=== PATIENT | female | born 1950 | race Caucasian/White ===

== ENCOUNTER → 2017-10-24 12:54 | Outpatient (CLI) | payer OTHER, SELFPAY ==
--- NOTE | 2017-10-24 12:55 | DI.MG.S_ITS ---
BILATERAL DIGITAL SCREENING MAMMOGRAM 3D/2D WITH CAD: 10/24/2017 CLINICAL: Routine screening. Comparison is made to exams dated: 09/10/2016 mammogram, 07/31/2015 mammogram, and 06/30/2013 mammogram - [facility]. The tissue of both breasts is heterogeneously dense. This may lower the sensitivity of mammography. Current study was also evaluated with a Computer Aided Detection (CAD) system. No significant masses, calcifications, or other findings are seen in either breast. There has been no significant interval change. IMPRESSION: NEGATIVE There is no mammographic evidence of malignancy. A 1 year screening mammogram is recommended. This exam was interpreted at Station ID: [id number]. NOTE: For mammograms, a report in lay terms will be sent to the patient. Approximately 15% of breast malignancies will not be visualized mammographically. In the management of a palpable breast mass, a negative mammogram must not discourage biopsy of a clinically suspicious lesion. Electronically Signed By: Andrei gay/nkechi:10/24/2017 15:15:37 letter sent: Normal Exam ACR BI-RADS Category 1: Negative 3341F
== END ==
PROVIDERS: PCP Family Medicine; Visit Provider Family Medicine
DX: Z12.31 Encounter for screening mammogram for malignant neoplasm of breast (principal); M85.852 Other specified disorders of bone density and structure, left thigh; E07.9 Disorder of thyroid, unspecified; Z78.0 Asymptomatic menopausal state; Z87.891 Personal history of nicotine dependence
CPT/HCPCS: 77063; 77067; 77080

== ENCOUNTER → 2017-10-28 17:22 | Outpatient (CLI) | payer OTHER, SELFPAY ==
[2017-10-30 14:18] LABS: HSV 1 IgM Screen Negative (Negative); HSV 2 IgM Screen Negative (Negative)
[2017-10-30 15:21] LABS: HSV 2 IGG AB 9.11 index (< 0.90); HSV1IGG < 0.90 index (< 0.90)
== END ==
PROVIDERS: Visit Provider Obstetrics & Gynecology
DX: N89.8 Other specified noninflammatory disorders of vagina (principal)
CPT/HCPCS: 36415; 86694; 86695; 86696

== ENCOUNTER 2018-03-31 13:02 | Day surgery (SDC) | payer OTHER, SELFPAY ==
[2018-03-31 13:22] VITALS: BP 116/74; PULSE 86; RESP 16; TEMP 36.4; O2SAT 97; BMI 24.4
[2018-03-31] MEDS: SODIUM CHLORIDE 0.9% 1,000 ML 100 ML IV (13:46)
--- NOTE | 2018-03-31 14:46 | PM.HP.1 ---
History of Present Illness Date Patient Seen: 03/31/18 Time Patient Seen: 14:46 Chief complaint: [id number] SCREENING COLONOSCOPY Narrative: Pleasant 68-year-old lady here for screening colonoscopy. She denies any new problems or symptoms related to the function of her GI tract. She reports she needs colonoscopy as part of the Health maintenance program. Patient History Medical History Anxiety (Chronic ~1999) Bipolar 1 disorder (Chronic ~1969) Chronic back pain (Chronic ~2009) Chronic headaches (Chronic ~2013) Depression (Chronic ~1967) Gastroparesis (Chronic ~1989) Hay fever (Chronic ~1979) Hyperlipidemia (Chronic) Hyperthyroidism (Chronic) Hypothyroidism (Chronic ~1996) Lumbar spine pain (Chronic) Menopause (Chronic) Osteoarthritis (Chronic) Post traumatic stress disorder (PTSD) (Chronic ~2007) Psoriasis (Chronic) Shoulder pain (Chronic) Skin problem (Chronic ~2013) Thyroid nodule (Chronic ~1996) Chicken pox (Resolved) Measles (Resolved) Surgical History Anesthesia (Resolved) H/O shoulder surgery (Resolved ~2004) History of cystoscopy History of spinal fusion (07/07/14) History of thyroidectomy Status post delivery Status post tonsillectomy and adenoidectomy Family & Social History Family History: Reviewed 03/31/18 by Daisy Valentine MD Social History: household members spouse Tobacco & Substance use: Smoking Status Former smoker Meds Home Medications Medication Instructions Recorded Confirmed Type lamotrigine [Lamictal] 200 mg PO QDAY #0 04/16/11 History quetiapine [Seroquel XR] 50 mg PO HS #0 05/15/12 History quetiapine [Seroquel] 100 mg PO HS #0 05/15/12 History estradiol [Estrace] 0.5 gm VAGINAL SEE INSTRUCTIONS 05/06/17 Rx #60 gm celecoxib [Celebrex] 200 mg PO AMCC #0 06/18/17 History cyclobenzaprine 5 mg PO TID #0 06/18/17 History levothyroxine 137 mcg tablet 137 mcg PO QAM #90 tab 09/19/17 Rx levothyroxine 150 mcg tablet 150 mcg PO QAM #90 tab 09/19/17 Rx quetiapine 400 mg tablet 400 mg PO BEDTIME #90 tab 09/24/17 Rx nifedipine/lidocaine VAG 10/28/17 10/28/17 History valacyclovir 500 mg tablet 500 mg PO BID #10 tab 11/06/17 Rx Allergies Allergy/AdvReac Type Severity Reaction Status Date / Time lovastatin [LOVASTATIN] Allergy Unknown Unverified 09/24/17 09:00 Opioids - Morphine Analogues AdvReac Intermediate NAUSEA AND Unverified 09/24/17 09:00 [OPIOIDS - MORPHINE CONFUSION ANALOGUES] Review of Systems Review of Systems Complains of nausea with narcotics Exam Vital Signs (past 8 hours): - 03/31/18 13:22 Temperature 97.6 F Pulse Rate 86 Respiratory Rate 16 Blood Pressure 116/74 Pulse Oximetry 97 Oxygen Delivery Method Room Air Narrative Exam Narrative: Very pleasant and thin 68-year-old lady in no obvious distress HEENT: Normocephalic and atraumatic, pupils equal round reactive to light accommodation with anicteric sclera Lungs: Clear to auscultation bilaterally Heart: Regular rate and rhythm Abdomen: Soft, nontender, active bowel sounds Extremities: Warm and well perfused. Assessment & Plan Plan: Assessment/Plan Narrative: [age] year old lady here for a screening colonoscopy. She is concerned today because she reports she woke up during her last colonoscopy and it was a very traumatic experience for her. She wants to be sure that she is deeply sleep for the entire procedure. We discussed the risks and benefits of colonoscopy and the patient expressed desire to complete the procedure today.
[2018-03-31] MEDS: ONDANSETRON 4 MG/2 ML INJ IV (14:51)
--- NOTE | 2018-03-31 15:55 | PM.OP.1 ---
Operative Date/Time/Diagnoses Date of procedure: 03/31/18 Time of procedure: 15:55 Pre-op diagnosis: Screening Post-op diagnosis: same Procedure & Clinicians Procedure: Colonoscopy to the cecum Same procedure as scheduled: Yes Indications: Last colonoscopy 10 years ago Surgeon: Daisy Valentine Click Yes if Unassisted: Yes Anesthesia Type: Sedation (Versed 20 mg; fentanyl 500 mcg) Operative Notes Findings: 1. Adequate prep 2. No polyps or mass lesions 3. Profoundly tortuous and atonic colon 4. Minimal diverticulosis limited to the left side of the colon and primarily the sigmoid region. Few scattered small pocket 5. Decreased anal sphincter tone 6. Grade 1-2 internal hemorrhoids Specimen(s): none sent Procedure in detail: After obtaining informed consent, the patient was brought to the GI suite and placed in the left lateral decubitus position on the examination table. After placement of appropriate monitors, the patient was given incremental doses of Versed and Fentanyl until an appropriate level of sedation was achieved. A time out was held per SCOAP protocol. A digital rectal examination was performed and did not reveal any masses or obstructing lesions. The colonoscope was gently passed into the patient's anus and the entire colon navigated to the level of the cecum with profound difficulty due to an extremely elongated and atonic colon. Multiple changes of position as well as external pressure were required to eventually reach the cecum. Once in the cecum, the scope was withdrawn being sure to go before and beyond all mucosal folds and prominences and get an excellent examination. The findings are noted above. At the level of the rectal vault, the scope was retroflexed and the internal anal canal was examined. The scope was straightened and air aspirated from the colon. The instrument was removed from the patient's body and the procedure was concluded. The patient was allowed to awaken from sedation without difficulty and taken to the post-anesthesia care unit in good condition. Total sedation time 56 min Total colonoscopy withdrawal time 9 min 22 sec Complications: none Condition: stable Disposition: PACU Plan for aftercare: 1. Discharge to home 2. Plan for next colonoscopy in 10 years or as clinically indicated
[2018-03-31] MEDS: MIDAZOLAM 5 MG/5 ML VIAL IV (15:56)
[2018-03-31] MEDS: fentaNYL 250 MCG/5 ML INJ IV (15:56)
[2018-03-31 16:00] VITALS: BP 96/64; PULSE 80; RESP 16; TEMP 35.9; O2SAT 94
[2018-03-31 16:05] VITALS: BP 105/69; PULSE 80; RESP 16; O2SAT 94
[2018-03-31 16:10] VITALS: BP 103/71; PULSE 81; RESP 16; O2SAT 94
[2018-03-31 16:28] VITALS: BP 113/69; PULSE 65; RESP 14; TEMP 36.7; O2SAT 97
[2018-03-31 16:55] VITALS: BP 104/67; PULSE 79; RESP 16; TEMP 36.4; O2SAT 96
== END 2018-03-31 16:59 | disposition home or self-care (01) ==
PROVIDERS: PCP Family Medicine; Visit Provider Surgery
PROC: 0DJD8ZZ Inspection of Lower Intestinal Tract, Via Natural or Artificial Opening Endoscopic (ICD-10-PCS; CPT 45378; principal; 2018-03-31 14:45)
DX: Z12.11 Encounter for screening for malignant neoplasm of colon (principal); K57.30 Diverticulosis of large intestine without perforation or abscess without bleeding; K64.1 Second degree hemorrhoids
CPT/HCPCS: G0121; 99152; 99153; J2250; J2405; J3010

== ENCOUNTER → 2018-04-06 12:12 | Outpatient (CLI) | payer OTHER, SELFPAY ==
[2018-04-06 14:35] LABS: Thyroid Stimulating Hormone 0.11 uIU/mL (0.47-4.68)
== END ==
PROVIDERS: PCP Family Medicine; Visit Provider Family Medicine
DX: E03.9 Hypothyroidism, unspecified (principal)
CPT/HCPCS: 36415; 84443

== ENCOUNTER → 2018-07-03 16:01 | Outpatient (CLI) | payer OTHER, SELFPAY ==
[2018-07-03 18:39] LABS: Thyroid Stimulating Hormone 0.05 uIU/mL (0.47-4.68)
== END ==
PROVIDERS: Family Provider Psychiatry & Neurology Psychiatry; PCP Family Medicine; Visit Provider Family Medicine
DX: E03.9 Hypothyroidism, unspecified (principal)
CPT/HCPCS: 36415; 84443

== ENCOUNTER → 2018-08-20 14:02 | Outpatient (CLI) | payer OTHER, SELFPAY ==
--- NOTE | 2018-08-20 14:04 | DI.MRI.S_ITS ---
PROCEDURE: MR HIP RT WO/W CON INDICATIONS: right foot drop, right hip impingement syndrome. Right hip pain TECHNIQUE: Noncontrast coronal T1 spin echo and STIR through the bony pelvis. Coronal and axial T2 fast spin echo with fat saturation, axial T1 spin echo with fat saturation, sagittal T1 spin echo, and oblique axial T2 fast spin echo with fat saturation through the hip. Post-contrast axial, coronal, and sagittal spin echo with fat saturation through the hip. COMPARISON: [facility] [place], CR, XR PELVIS WITH LATERAL HIP RIGHT, 05/27/2017, 8:28. FINDINGS: Image quality: There is magnetic susceptibly artifact associated with patient's surgical hardware in the lower lumbar spine. Bones and joints: Bone marrow of the pelvic ring and proximal femurs demonstrate normal overall signal. No intraosseous lesions or fractures. No abnormal bone enhancement. No avascular necrosis of the femoral heads. The visualized lower lumbar spine demonstrates post surgical changes status post posterior fixation with associated magnetic susceptibility artifact. Tendons and ligaments: There is mild partial tearing of the gluteus medius tendon distally and minimal partial tearing of the distal gluteus minimus. There is associated mild peritendinous edema. No discrete bursal fluid collection. No fatty muscle atrophy. The adjacent proximal iliotibial band appears intact. The iliopsoas tendon appears intact, without adjacent bursal fluid collections or evidence for impingement syndrome. The origin of the hamstring tendon is intact at the ischial tuberosity, as well as the associated sacrotuberous ligament. The straight and reflected heads of the rectus femoris muscle origin appear intact, as well as the conjoint tendon. The ligamentum teres appears intact where visualized. Labrum and cartilage: There is mild partial linear tearing of the superior and anterosuperior labrum. Cartilage surface of the femoral head appears of normal thickness. The alpha angle of the femur is within normal limits at less than 55 degrees. Soft tissues: No suspicious soft tissue enhancement. Visualized muscles demonstrate normal bulk and internal signal. Quadratus femoris muscle demonstrates no internal edema to suggest ischiofemoral impingement. The proximal sciatic neurovascular bundle appears normal adjacent to the hamstring tendons. No free pelvic fluid. Bladder wall thickness is normal. Visualized bowel loops appear normal in caliber. Within the left hemipelvis, there is an oval thin-walled lesion measuring approximately 4.1 x 3.3 cm in coronal dimension which demonstrates T1 hyperintensity with hypointense signal on the STIR sequence. This is incompletely evaluated on the current study. IMPRESSION: 1. Partial tearing of the gluteus medius and minimus tendons as described. 2. Mild partial tearing of the superior and anterosuperior labrum. 3. Left pelvic mass lesion suggestive of an ovarian cyst or mass is incompletely evaluated on the current study. Recommend further evaluation with a pelvic ultrasound or gynecologic protocol MRI. Dictated by: Alex Jimenes M.D. on 08/20/2018 at 16:56 Approved by: Alex Jimenes M.D. on 08/20/2018 at 17:07
== END ==
PROVIDERS: PCP Family Medicine; Visit Provider Physical Medicine & Rehabilitation
DX: M25.551 Pain in right hip (principal); M25.851 Other specified joint disorders, right hip; M21.371 Foot drop, right foot; R19.00 Intra-abdominal and pelvic swelling, mass and lump, unspecified site; S73.191A Other sprain of right hip, initial encounter; M96.1 Postlaminectomy syndrome, not elsewhere classified; R26.81 Unsteadiness on feet; R29.898 Other symptoms and signs involving the musculoskeletal system
CPT/HCPCS: 73723; A9579

== ENCOUNTER → 2018-09-15 10:44 | Outpatient (CLI) | payer OTHER, SELFPAY ==
--- NOTE | 2018-09-15 10:48 | DI.US.S_ITS ---
PROCEDURE: US PELVIC COMPLETE INDICATIONS: LEFT ADNEXAL MASS ON MRI TECHNIQUE: Real-time scanning was performed of the pelvic organs, with image documentation. Additional endovaginal scanning was necessary due to incomplete visualization of the adnexal and endometrial structures by transabdominal scanning. COMPARISON: , MR, MR HIP RT WO/W CON, 08/20/2018, 14:27. , US, PELVIC COMPLETE, 11/02/2013, 9:13. FINDINGS: Transabdominal scanning: Limited scanning through the kidneys shows no hydronephrosis. Left renal cyst measuring 2.9 cm. No pathologic free abdominal or pelvic fluid. Endovaginal scanning: Uterus: Uterus is normal in size at 6.4 x 2.6 x 4.0 cm. The endometrium measures 4.3 mm in combined thickness. 4 mm anterior myometrial cyst. 1.2 cm posterior intramural fibroid. Ovaries: Ovaries not identified. IMPRESSION: 1. Ovaries not identified nor the previously visualized left adnexal cystic mass which cannot be evaluated secondary to overlying bowel gas. If indicated, limited short-term followup pelvic ultrasound could be performed targeting the left adnexa. 2. 12 mm intramural fibroid. Dictated by: Gary TURCIOS Interpreted: Ghulam Alvarado MD on 09/16/2018 at 9:57 Approved by: Ghulam Alvarado M.D. on 09/16/2018 at 11:06
== END ==
PROVIDERS: PCP Family Medicine; Visit Provider Obstetrics & Gynecology
DX: R19.00 Intra-abdominal and pelvic swelling, mass and lump, unspecified site (principal); N28.1 Cyst of kidney, acquired; D25.1 Intramural leiomyoma of uterus
CPT/HCPCS: 76830; 76856

== ENCOUNTER → 2018-10-21 09:35 | Outpatient (CLI) | payer OTHER, SELFPAY ==
[2018-10-21 10:31] LABS: Add Manual Diff / Slide Review NO; Basophils Absolute Auto 0 /uL (0-100); Basophils Percent Auto 0.9 % (0-2); Eosinophils Absolute Auto 200 /uL (0-450); Eosinophils Percent Auto 4.6 % (2-4); Hematocrit 40.5 % (36-46); Hemoglobin 13.3 g/dL (12.0-16.0); Lymphocytes Absolute Auto 1400 /uL (1100-4500); Lymphocytes Percent Auto 37.2 % (25-40); Mean Corpuscular Hemoglobin 29.5 PG (26-34); Mean Corpuscular Volume 89.4 fL (80-100); Monocytes Absolute Auto 300 /uL (0-900); Monocytes Percent Auto 8.3 % (3-14); Neutrophils Absolute Auto 1900 /uL (1500-7000); Platelet Count 280 X10^3/uL (150-400); Red Blood Cell Count 4.52 X10^6/uL (4.0-5.2); Red Cell Distribution Width 13.8 % (11.6-14.8); White Blood Cell Count 3.9 X10^3/uL (4.5-11.0)
[2018-10-21 10:43] LABS: Alanine Aminotransferase 26 IU/L (9-52); Albumin 4.5 g/dL (3.5-5.0); Albumin Globulin Ratio 1.6 (1.0-2.8); Alkaline Phosphatase 81 U/L (38-126); Aspartate Aminotransferase 32 IU/L (14-36); Bilirubin Total 0.5 mg/dL (0.2-1.3); Blood Urea Nitrogen 26 mg/dL (7-17); Calcium 9.5 mg/dL (8.4-10.2); Carbon Dioxide 28 mmol/L (22-32); Chloride 104 mmol/L (98-107); Cholesterol 259 mg/dL (140-199); Estimated Glomerular Filt Rate 55.5 mL/min (>60); Globulin 2.8 g/dL (1.7-4.1); Glucose 95 mg/dL (80-110); HDL Cholesterol 73 mg/dL (40-60); HEMOLYSIS < 15 (0-50); LDL Cholesterol Calculated 171 mg/dL (<100); Potassium 4.8 mmol/L (3.4-5.1); Sodium 140 mmol/L (137-145); Total Protein 7.3 g/dL (6.3-8.2); Triglycerides 77 mg/dL (35-150)
[2018-10-21 11:14] LABS: Thyroid Stimulating Hormone 0.19 uIU/mL (0.47-4.68)
== END ==
PROVIDERS: PCP Family Medicine; Visit Provider Family Medicine
DX: E03.9 Hypothyroidism, unspecified (principal); E78.5 Hyperlipidemia, unspecified; R89.9 Unspecified abnormal finding in specimens from other organs, systems and tissues; Z13.0 Encounter for screening for diseases of the blood and blood-forming organs and certain disorders involving the immune mechanism
CPT/HCPCS: 36415; 80053; 80061; 84443; 85025

== ENCOUNTER → 2018-11-04 12:24 | Outpatient (CLI) | payer OTHER, SELFPAY ==
[2018-11-04 13:58] LABS: Cancer Antigen 125 < 6 U/mL (0-35)
== END ==
PROVIDERS: PCP Family Medicine; Visit Provider Obstetrics & Gynecology
DX: R10.32 Left lower quadrant pain (principal)
CPT/HCPCS: 36415; 86304

== ENCOUNTER → 2019-03-09 08:09 | Outpatient (CLI) | payer OTHER, SELFPAY ==
[2019-03-09 10:44] LABS: Add Manual Diff / Slide Review NO; Basophils Absolute Auto 0 /uL (0-100); Basophils Percent Auto 0.7 % (0-2); Eosinophils Absolute Auto 200 /uL (0-450); Eosinophils Percent Auto 4.7 % (2-4); Hematocrit 40.1 % (36-46); Hemoglobin 13.4 g/dL (12.0-16.0); Lymphocytes Absolute Auto 1800 /uL (1100-4500); Lymphocytes Percent Auto 42.3 % (25-40); Mean Corpuscular HGB Conc 33.5 % (30-36); Mean Corpuscular Hemoglobin 29.6 PG (26-34); Mean Corpuscular Volume 88.4 fL (80-100); Monocytes Absolute Auto 400 /uL (0-900); Monocytes Percent Auto 9.8 % (3-14); Neutrophils Absolute Auto 1800 /uL (1500-7000); Neutrophils Percent Auto 42.5 % (50-75); Platelet Count 273 X10^3/uL (150-400); Red Blood Cell Count 4.53 X10^6/uL (4.0-5.2); Red Cell Distribution Width 13.8 % (11.6-14.8); White Blood Cell Count 4.2 X10^3/uL (4.5-11.0)
[2019-03-09 11:15] LABS: Alanine Aminotransferase 18 IU/L (9-52); Albumin 4.1 g/dL (3.5-5.0); Albumin Globulin Ratio 1.6 (1.0-2.8); Alkaline Phosphatase 83 U/L (38-126); Aspartate Aminotransferase 27 IU/L (14-36); BUN Creatinine Ratio 25.6 (6-22); Bilirubin Total 0.4 mg/dL (0.2-1.3); Blood Urea Nitrogen 23 mg/dL (7-17); Calcium 9.3 mg/dL (8.4-10.2); Carbon Dioxide 24 mmol/L (22-32); Chloride 110 mmol/L (98-107); Cholesterol 237 mg/dL (140-199); Estimated Glomerular Filt Rate > 60.0 mL/min (>60); Globulin 2.5 g/dL (1.7-4.1); Glucose 90 mg/dL (80-110); HDL Cholesterol 68 mg/dL (40-60); HEMOLYSIS < 15 (0-50); LDL Cholesterol Calculated 147 mg/dL (<100); Potassium 4.3 mmol/L (3.4-5.1); Sodium 140 mmol/L (137-145); Total Protein 6.6 g/dL (6.3-8.2); Triglycerides 112 mg/dL (35-150)
[2019-03-09 11:40] LABS: TSH w/ Reflex to FT4 0.22 uIU/mL (0.47-4.68)
[2019-03-09 12:12] LABS: Free T4, Direct Thyroxine 1.72 ng/dL (0.78-2.19)
== END ==
PROVIDERS: Family Medicine; Family Provider Nurse Practitioner; PCP Nurse Practitioner; Visit Provider Internal Medicine
DX: Z13.1 Encounter for screening for diabetes mellitus (principal); E03.9 Hypothyroidism, unspecified; E78.5 Hyperlipidemia, unspecified; Z13.6 Encounter for screening for cardiovascular disorders; Z79.899 Other long term (current) drug therapy
CPT/HCPCS: 36415; 80053; 80061; 84439; 84443; 85025

== ENCOUNTER → 2019-03-10 09:52 | Outpatient (CLI) | payer OTHER, SELFPAY ==
--- NOTE | 2019-03-10 | DI.MG.S_ITS ---
BILATERAL DIGITAL SCREENING MAMMOGRAM 3D/2D WITH CAD: 03/10/2019 CLINICAL: Routine screening. Comparison is made to exams dated: 10/24/2017 mammogram, 09/10/2016 mammogram, and 07/31/2015 mammogram - [facility]. The tissue of both breasts is heterogeneously dense. This may lower the sensitivity of mammography. Current study was also evaluated with a Computer Aided Detection (CAD) system. No significant masses, calcifications, or other findings are seen in either breast. There has been no significant interval change. IMPRESSION: NEGATIVE There is no mammographic evidence of malignancy. A 1 year screening mammogram is recommended. This exam was interpreted at Station ID: [id number]. NOTE: For mammograms, a report in lay terms will be sent to the patient. Approximately 15% of breast malignancies will not be visualized mammographically. In the management of a palpable breast mass, a negative mammogram must not discourage biopsy of a clinically suspicious lesion. Electronically Signed By: Swetha riggs/nkechi:03/10/2019 11:38:59 letter sent: Normal Exam ACR BI-RADS Category 1: Negative 3341F
== END ==
PROVIDERS: Family Provider Nurse Practitioner; PCP Nurse Practitioner; Visit Provider Nurse Practitioner
DX: Z12.31 Encounter for screening mammogram for malignant neoplasm of breast (principal); Z78.0 Asymptomatic menopausal state; E07.9 Disorder of thyroid, unspecified; Z87.891 Personal history of nicotine dependence
CPT/HCPCS: 77063; 77067; 77080; 77081

== ENCOUNTER → 2019-03-30 16:59 | Outpatient (CLI) | payer OTHER, SELFPAY ==
[2019-03-30 17:05] LABS: Bacteria Urine None Seen
[2019-03-30 18:53] LABS: Appearance Urine UA CLEAR; Bilirubin Urine UA NEGATIVE (NEGATIVE); Color Urine UA YELLOW; Glucose Urine UA NEGATIVE (Negative); Ketones Urine UA NEGATIVE (NEGATIVE); Leukocyte Esterase Urine UA NEGATIVE (NEGATIVE); Nitrite Urine UA NEGATIVE (Negative); Occult Blood Urine UA NEGATIVE (Negative); Protein Urine UA NEGATIVE (Negative); Specific Gravity Urine UA <=1.005 (1.000-1.035); Urobilinogen Urine UA 0.2 E.U./dL (0.2)
[2019-03-30 18:56] LABS: pH Urine UA 5.5 (4.5-8.0)
[2019-03-30 19:16] LABS: Culture Indicated Urine Cult Not Indicated; RBC Urine 0-1/HPF (0-5/HPF); Urine Comments Microscopic Normal; WBC Urine 0-1/HPF (0-5/HPF)
== END ==
PROVIDERS: Family Provider Nurse Practitioner; PCP Nurse Practitioner; Visit Provider Obstetrics & Gynecology
DX: R30.0 Dysuria (principal)
CPT/HCPCS: 81001

== ENCOUNTER → 2019-05-04 14:34 | Outpatient (CLI) | payer OTHER, SELFPAY ==
--- NOTE | 2019-05-04 14:35 | DI.RAD.S_ITS ---
PROCEDURE: XR CHEST 2V INDICATIONS: orthopnea TECHNIQUE: 2 views of the chest were acquired. COMPARISON: [facility], , CHEST 1 VIEW, 07/25/2014, 22:11. FINDINGS: Surgical changes and devices: Surgical clips in the lower neck at midline presumably for thyroidectomies. Lungs and pleura: Mild left basilar scars/atelectasis. Lungs are otherwise clear. No pleural effusions or pneumothorax. Mediastinum: Mediastinal contours are normal. Heart size is normal. Bones and chest wall: No suspicious bony abnormalities. Soft tissues appear unremarkable. IMPRESSION: No acute cardiopulmonary disease. Dictated by: Amol Cary M.D. on 05/04/2019 at 15:00 Approved by: Amol Cary M.D. on 05/04/2019 at 15:04
[2019-05-04 15:19] LABS: Hematocrit 38.8 % (36-46); Hemoglobin 12.9 g/dL (12.0-16.0); Mean Corpuscular HGB Conc 33.3 % (30-36); Mean Corpuscular Hemoglobin 30.3 PG (26-34); Mean Corpuscular Volume 90.9 fL (80-100); Platelet Count 284 X10^3/uL (150-400); Red Blood Cell Count 4.28 X10^6/uL (4.0-5.2); Red Cell Distribution Width 14.4 % (11.6-14.8); White Blood Cell Count 6.6 X10^3/uL (4.5-11.0)
[2019-05-04 15:44] LABS: B Type Natriuretic Peptide < 100 (<100)
== END ==
PROVIDERS: PCP Nurse Practitioner; Visit Provider Nurse Practitioner Family
DX: R06.01 Orthopnea (principal); J34.89 Other specified disorders of nose and nasal sinuses
CPT/HCPCS: 36415; 71046; 83880; 85027

== ENCOUNTER → 2019-05-14 15:49 | Outpatient (CLI) | payer OTHER, SELFPAY | PROVIDERS: PCP Nurse Practitioner; Visit Provider Internal Medicine | DX: E03.9 Hypothyroidism, unspecified (principal) | CPT/HCPCS: 36415; 84443 ==

== ENCOUNTER → 2019-07-21 09:25 | Outpatient (CLI) | payer OTHER, SELFPAY | PROVIDERS: PCP Nurse Practitioner; Visit Provider Nurse Practitioner | DX: N89.8 Other specified noninflammatory disorders of vagina (principal); N94.9 Unspecified condition associated with female genital organs and menstrual cycle | CPT/HCPCS: 87070; 87205 ==

== ENCOUNTER → 2019-11-10 11:11 | Outpatient (CLI) | payer OTHER, SELFPAY ==
[2019-11-10 13:22] LABS: TSH w/ Reflex to FT4 2.72 uIU/mL (0.47-4.68)
== END ==
PROVIDERS: PCP Nurse Practitioner; Referring Provider Internal Medicine; Visit Provider Internal Medicine
DX: E03.9 Hypothyroidism, unspecified (principal)
CPT/HCPCS: 36415; 84443

== ENCOUNTER → 2019-12-30 08:17 | Outpatient (CLI) | payer OTHER, SELFPAY ==
--- NOTE | 2019-12-30 08:19 | DI.MRI.S_ITS ---
PROCEDURE: MR FEMUR RT WO/W CON INDICATIONS: worseing pain right buttock and hamstring s/p fall TECHNIQUE: Noncontrast coronal T1 spin echo and STIR, sagittal T1 spin echo with fat saturation and STIR, axial T1 spin echo and T2 fast spin echo with fat saturation. After the administration of contrast, axial/sagittal/coronal T1 spin echo with fat saturation through the right thigh.. COMPARISON: None. FINDINGS: Image quality: Excellent. Bones: There is no marrow edema. No fracture or dislocation. Mild to moderate right hip joint osteoarthritic changes are seen. No evidence of avascular necrosis of femoral head.. The overlying cortex appears intact. No abnormal intraosseous enhancement. Soft tissues: There is full-thickness rupture involving origin of semi member no cysts tendon at its insertion on ischial tuberosity with minimal distal retraction of torn tendon fibers and extensive surrounding soft tissue edema and fluid. Mild edema involving proximal semimembranosus muscle near musculotendinous junction is also seen suggestive of low-grade partial-thickness tear. Full-thickness rupture involving common tendon origin of long head of biceps femora stent in and semitendinosis tendon is seen with approximately 2 cm distal retraction of torn tendon fibers and extensive edema and fluid involving proximal tendons and muscles new musculotendinous junction. Edema and fluid is seen surrounding semitendinosis muscle to posterior aspect of right knee joint. No soft tissue masses are visualized. Rest of the scanned muscles demonstrate normal overall bulk and internal signal. Subcutaneous tissues appear normal as well. No abnormal soft tissue enhancement. IMPRESSION: 1. Full-thickness rupture involving and strain tendon origin at the ischial tuberosity with distal retraction of torn tendon fibers and with surrounding fluid. There is also suggestion of partial-thickness tear involving proximal portion of answering muscles near musculotendinous junction. No soft tissue mass. No other muscle or tendon signal abnormality. 2. No fracture or dislocation. Right hip joint osteoarthritis. No evidence of avascular necrosis. No abnormal intraosseous enhancement. Dictated by: Ghulam Alvarado M.D. on 12/30/2019 at 17:37 Approved by: Ghulam Alvarado M.D. on 12/30/2019 at 17:55
--- NOTE | 2019-12-30 08:19 | DI.MRI.S_ITS ---
PROCEDURE: MR HIP RT WO/W CON INDICATIONS: worseing pain right buttock and hamstring s/p fall TECHNIQUE: Noncontrast coronal T1 spin echo and STIR through the bony pelvis. Coronal and axial T2 fast spin echo with fat saturation, axial T1 spin echo with fat saturation, sagittal T1 spin echo, and oblique axial T2 fast spin echo with fat saturation through the hip. Post-contrast axial, coronal, and sagittal spin echo with fat saturation through the hip. COMPARISON: [facility], MR, MR HIP RT WO/W CON, 08/20/2018, 14:27. FINDINGS: Image quality: Excellent. Bones and joints: No suspicious osseous enhancement. [id number] bilateral hip joint osteoarthritic changes are seen with superior joint space narrowing and subchondral sclerosis. No marrow edema. No intraosseous lesions or fractures. No avascular necrosis of the femoral heads. The visualized lower lumbar spine appears normally aligned. Tendons and ligaments: There is full-thickness rupture involving origins of the hamstring tendons at their insertions on ischial tuberosity with distally retracted tendon fibers and extensive surrounding soft tissue edema and swelling. The gluteus medius and minimus tendons appear intact, without associated muscle atrophy. The nearby proximal iliotibial band also appears intact. The iliopsoas tendon appears intact, without adjacent bursal fluid collections or evidence for impingement syndrome. The straight and reflected heads of the rectus femoris muscle origin appear intact, as well as the conjoint tendon. The ligamentum teres appears intact where visualized. Labrum and cartilage: The acetabular labrum appears intact in the absence of intra-articular contrast. Cartilage surface of the femoral head appears of normal thickness. The alpha angle of the femur is within normal limits at less than 55 degrees. Soft tissues: No suspicious soft tissue enhancement. Visualized muscles demonstrate normal bulk and internal signal. Quadratus femoris muscle demonstrates no internal edema to suggest ischiofemoral impingement. The proximal sciatic neurovascular bundle appears normal adjacent to the hamstring tendons. No free pelvic fluid. Bladder wall thickness is normal. Genitourinary structures and bowel loops appear normal where visualized. IMPRESSION: 1. Full-thickness rupture involving common origin of the hamstring tendons at their insertion on ischial tuberosity with distal retraction of the torn tendon fibers and surrounding soft tissue edema and swelling. Please refer to MRI of the right thigh for additional evaluation of the hamstring tendons and muscles. 2. No pelvic or hip fracture. No marrow edema. No abnormal intraosseous enhancement. No evidence of avascular necrosis of femoral head. Mild to moderate bilateral hip joint osteoarthritis. 3. No abnormal soft tissue enhancement. No soft tissue mass or fluid collection. No other muscle or tendon signal abnormality. Dictated by: Ghulam Alvarado M.D. on 12/30/2019 at 17:21 Approved by: Ghulam Alvarado M.D. on 12/30/2019 at 17:36
== END ==
PROVIDERS: PCP Nurse Practitioner; Referring Provider Nurse Practitioner; Visit Provider Nurse Practitioner
DX: S76.811A Strain of other specified muscles, fascia and tendons at thigh level, right thigh, initial encounter (principal); M79.18 Myalgia, other site; M25.661 Stiffness of right knee, not elsewhere classified; M16.11 Unilateral primary osteoarthritis, right hip; W18.30XA Fall on same level, unspecified, initial encounter
CPT/HCPCS: 73720; 73723; A9579

== ENCOUNTER 2019-12-31 17:06 | Emergency (ER) | payer OTHER, SELFPAY ==
[2019-12-31 17:33] VITALS: BP 133/86; PULSE 92; RESP 16; TEMP 36.8; O2SAT 98; BMI 25.3
== END 2019-12-31 18:21 | disposition left against medical advice (07) ==
PROVIDERS: Emergency Provider Emergency Medicine; PCP Nurse Practitioner
CPT/HCPCS: 99281

== ENCOUNTER → 2020-02-09 12:06 | Outpatient (CLI) | payer OTHER, SELFPAY ==
[2020-02-09 13:20] LABS: TSH w/ Reflex to FT4 1.38 uIU/mL (0.47-4.68)
== END ==
PROVIDERS: PCP Nurse Practitioner; Referring Provider Internal Medicine; Visit Provider Internal Medicine
DX: E03.9 Hypothyroidism, unspecified (principal)
CPT/HCPCS: 36415; 84443

== ENCOUNTER → 2020-04-18 11:35 | Outpatient (CLI) | payer OTHER, SELFPAY ==
--- NOTE | 2020-04-18 11:36 | DI.MG.S_ITS ---
BILATERAL DIGITAL SCREENING MAMMOGRAM 3D/2D WITH CAD: 04/18/2020 CLINICAL: Routine screening. Comparison is made to exams dated: 03/10/2019 mammogram, 10/24/2017 mammogram, and 09/10/2016 mammogram - [facility]. The tissue of both breasts is heterogeneously dense. This may lower the sensitivity of mammography. Current study was also evaluated with a Computer Aided Detection (CAD) system. No significant masses, calcifications, or other findings are seen in either breast. There has been no significant interval change. IMPRESSION: NEGATIVE There is no mammographic evidence of malignancy. A 1 year screening mammogram is recommended. This exam was interpreted at Station ID: [id number]. NOTE: For mammograms, a report in lay terms will be sent to the patient. Approximately 15% of breast malignancies will not be visualized mammographically. In the management of a palpable breast mass, a negative mammogram must not discourage biopsy of a clinically suspicious lesion. Electronically Signed By: Washington Hernandez acr/penrad:04/18/2020 12:49:17 letter sent: Normal Exam ACR BI-RADS Category 1: Negative 3341F
== END ==
PROVIDERS: PCP Nurse Practitioner; Referring Provider Nurse Practitioner; Visit Provider Nurse Practitioner
DX: Z12.31 Encounter for screening mammogram for malignant neoplasm of breast (principal)
CPT/HCPCS: 77063; 77067

== ENCOUNTER → 2020-04-24 08:30 | Outpatient (CLI) | payer OTHER, SELFPAY ==
[2020-04-24 10:35] LABS: Thyroid Stimulating Hormone 4.22 uIU/mL (0.47-4.68)
== END ==
PROVIDERS: PCP Nurse Practitioner; Referring Provider Nurse Practitioner; Visit Provider Nurse Practitioner
DX: E03.9 Hypothyroidism, unspecified (principal); F31.9 Bipolar disorder, unspecified; F41.0 Panic disorder [episodic paroxysmal anxiety]; Z79.899 Other long term (current) drug therapy
CPT/HCPCS: 36415; 84443

== ENCOUNTER → 2020-08-03 14:22 | Outpatient (CLI) | payer OTHER, SELFPAY ==
[2020-08-03 14:52] LABS: Add Manual Diff / Slide Review NO; Basophils Absolute Auto 100 /uL (0-100); Basophils Percent Auto 1.1 % (0-2); Eosinophils Absolute Auto 200 /uL (0-450); Eosinophils Percent Auto 3.7 % (2-4); Hematocrit 39.1 % (36-46); Hemoglobin 12.8 g/dL (12.0-16.0); Lymphocytes Absolute Auto 1800 /uL (1100-4500); Lymphocytes Percent Auto 35.8 % (25-40); Mean Corpuscular HGB Conc 32.7 % (30-36); Mean Corpuscular Hemoglobin 30.1 PG (26-34); Monocytes Absolute Auto 400 /uL (0-900); Monocytes Percent Auto 8.4 % (3-14); Neutrophils Absolute Auto 2600 /uL (1500-7000); Platelet Count 295 X10^3/uL (150-400); Red Blood Cell Count 4.25 X10^6/uL (4.0-5.2); Red Cell Distribution Width 12.6 % (11.6-14.8); White Blood Cell Count 5.1 X10^3/uL (4.5-11.0)
[2020-08-03 15:34] LABS: Alanine Aminotransferase 19 IU/L (<35); Albumin 4.5 g/dL (3.5-5.0); Albumin Globulin Ratio 1.6 (1.0-2.8); Alkaline Phosphatase 92 U/L (38-126); Aspartate Aminotransferase 29 IU/L (14-36); Bilirubin Total 0.1 mg/dL (0.2-1.3); Blood Urea Nitrogen 22 mg/dL (7-17); Calcium 9.4 mg/dL (8.4-10.2); Carbon Dioxide 25 mmol/L (22-32); Chloride 106 mmol/L (98-107); Estimated Glomerular Filt Rate > 60.0 mL/min (>60); Globulin 2.9 g/dL (1.7-4.1); Glucose 95 mg/dL (80-110); HEMOLYSIS < 15 (0-50); Potassium 4.1 mmol/L (3.4-5.1); Sodium 140 mmol/L (137-145); Total Protein 7.4 g/dL (6.3-8.2)
== END ==
PROVIDERS: Orthopaedic Surgery; PCP Nurse Practitioner; Referring Provider Nurse Practitioner; Visit Provider Nurse Practitioner
DX: Z01.818 Encounter for other preprocedural examination (principal)
CPT/HCPCS: 36415; 80053; 85025; 93005; 93010

== ENCOUNTER → 2020-08-04 11:27 | Outpatient (CLI) | payer OTHER, SELFPAY ==
--- NOTE | 2020-08-04 11:28 | DI.MRI.S_ITS ---
PROCEDURE: MR LUMBAR SPINE WO/W CON INDICATIONS: LOW BACK PAIN, history of spinal surgery TECHNIQUE: Noncontrast sagittal T1 spin echo and T2 fast spin echo, sagittal STIR, axial T1 and T2 fast spin echo through the lumbar spine. In cases with scoliosis, additional coronal T2 fast spin echo may be performed. After the administration of contrast, sagittal and axial T1 spin echo with fat saturation through the lumbar spine. COMPARISON: [facility], , L-SPINE W&WO CONTRAST, 01/02/2017, 7:27. FINDINGS: Image quality: Susceptibility artifact from fusion hardware is again noted. There is good anatomic alignment, unchanged. Alignment and curvature: There is posterior fusion from L3 through L5. Appearance is unchanged compared to prior exam. Marrow: Marrow is of normal overall signal. No acute vertebral body compression fractures. No suspicious marrow enhancement. Spinal cord: Conus medullaris terminates at the L1 level. Visualized spinal cord demonstrates normal signal, without suspicious enhancement. Paraspinous soft tissues: No paravertebral masses or abnormal enhancement. Multiple bilateral renal cysts are again noted. Discs: Moderate to severe multilevel disc desiccation is present. L1-L2: Minimal disc bulge without spinal stenosis or foraminal narrowing. Facet and ligamentum flavum hypertrophy as well as minimal epidural lipomatosis is present, unchanged compared to prior exam. L2-L3: Mild disc bulge with minimal effacement of the anterior thecal sac. No foraminal narrowing. Facet and ligamentum flavum hypertrophy are present with minimal epidural lipomatosis. No interval change. L3-L4: Postsurgical changes are present. No spinal stenosis. Foramina are partially obscured. However, no gross foraminal narrowing. Overall appearance appears stable. L4-L5: Postsurgical changes are present. No spinal stenosis. Foramina are partially obscured. However there is felt to be mild bilateral foraminal narrowing, relatively unchanged. L5-S1: Mild disc bulge without spinal stenosis. Mild bilateral foraminal narrowing, unchanged. Posterior disc focus of increased intensity consistent with annular fissure, remains present although slightly less prominent. IMPRESSION: 1. Postsurgical and degenerative changes stable compared to prior exam. 2. No spinal stenosis. 3. Multilevel overall mild foraminal narrowing most notable at L5-S1. Dictated by: Chitra Tsang M.D. on 08/04/2020 at 13:50 Approved by: Chitra Tsang M.D. on 08/04/2020 at 13:57
== END ==
PROVIDERS: PCP Nurse Practitioner; Referring Provider Nurse Practitioner; Visit Provider Nurse Practitioner
DX: M54.5 Low back pain (principal); Z98.890 Other specified postprocedural states; Z98.1 Arthrodesis status
CPT/HCPCS: 72158

== ENCOUNTER 2020-09-19 15:41 | Emergency (ER) | payer OTHER, SELFPAY ==
[2020-09-19] VITALS (7 sets, daily range): BP systolic 127–136; BP diastolic 81–94; PULSE 80–102; RESP 14; TEMP 36.8; O2SAT 94–98; BMI 24.0
--- NOTE | 2020-09-19 16:03 | ED_ITS ---
HPI - Nausea/Vomiting/Diarrhea General Chief complaint: Nausea/Vomiting/Diarrhea Stated complaint: NOT GONE TO THE BATHOOM FOR 15 DAYS Time Seen by Provider: 09/19/20 15:42 Source: patient Mode of arrival: Ambulatory Limitations: no limitations History of Present Illness HPI Narrative: Patient is a 70-year-old female who approximately 1 month ago underwent a right total knee arthroplasty. She states that she is here because she feels like she has not had a bowel movement in approximately 15 days. She states she has been doing [id number] laxatives without any improvement. Has an underlying nausea but no vomiting. Does not feel like her abdomen is distended but she does feel bloated. She states that she is also not passing flatus. Has never had a bowel obstruction before. No prior abdominal surg eries. She states she does not feel like there is any stool in her rectum. Related Data Home Medications Medication Instructions Recorded Confirmed lamotrigine [Lamictal] 200 mg PO QDAY #0 04/16/11 08/11/20 lorazepam 1 mg tablet 0.5 mg PO BEDTIME PRN 10/28/18 08/11/20 zolpidem 10 mg tablet See Rx Instructions PO BEDTIME PRN 12/08/18 08/11/20 tab melatonin 3 mg capsule 1.5 mg PO BEDTIME PRN cap 03/17/19 08/11/20 quetiapine 100 mg tablet 100 mg PO BEDTIME 03/17/19 08/11/20 quetiapine 400 mg tablet,extended 400 mg PO BEDTIME 03/17/19 08/11/20 release 24 hr levothyroxine 137 mcg tablet 137 mcg PO QAM tab 08/11/20 08/11/20 levothyroxine 150 mcg tablet 150 mcg PO DAILY 08/11/20 08/11/20 Previous Rx's Medication Instructions Recorded triamcinolone acetonide 0.05 % 1 applictn TOP TID PRN #430 gram 03/17/19 topical ointment triamcinolone acetonide 0.1 % 1 applictn TOP BID PRN #15 gram 07/21/19 topical ointment clobetasol 0.05 % topical ointment 1 applictn TOP BID 7 Days #15 gram 07/29/19 valacyclovir 1 gram tablet 1,000 mg PO DAILY #90 tab 11/09/19 estradiol See Rx Instructions .ROUTE 04/25/20 .COMPLEX #42.5 gram quetiapine 50 mg tablet,extended 50 mg PO DAILY #1 tab 08/11/20 release 24 hr Allergies Allergy/AdvReac Type Severity Reaction Status Date / Time lovastatin [LOVASTATIN] Allergy Unknown Verified 09/19/20 15:49 Opioids - Morphine Analogues AdvReac Intermediate NAUSEA AND Verified 09/19/20 15:49 [OPIOIDS - MORPHINE CONFUSION ANALOGUES] Review of Systems Constitutional Constitutional: Denies fever(s) and Denies headache(s) ENT Ears, Nose, Mouth, and Throat: Denies headache(s) Cardiovascular Cardiovascular: Denies chest pain and Denies dyspnea Respiratory Respiratory: Denies dyspnea Gastrointestinal Gastrointestinal: Denies abdominal pain, Reports bloating, Reports constipation, Reports nausea and Denies vomiting Genitourinary Genitourinary: Denies dysuria Genitourinary: Denies dysuria Musculoskeletal Musculoskeletal: Denies myalgias Integumentary/Breasts Skin/Breast: Denies rash Neurologic Neurologic: Denies behavioral changes and Denies headache(s) Psychiatric Psychiatric: Denies behavioral changes Hematologic/Lymphatic On Anticoagulants: No Allergic/Immunologic Allergic/Immunologic: Denies urticaria Patient History Medical History Anxiety (~1999) Bipolar 1 disorder (~1969) Bladder spasms Chicken pox Chronic back pain (~2009) Chronic headaches (~2013) Chronic pain Contact dermatitis Decreased range of motion of right lower extremity Depression (~1967) Fall from ground level Femoral acetabular impingement Gait instability Gastroparesis (~1989) Genital herpes Genital herpes in women Hay fever (~1979) 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) Hyperlipidemia Hyperthyroidism Hypothyroidism (~1996) Hypothyroidism (acquired) Itchy skin of anus and genitals Laceration of scalp Lumbar post-laminectomy syndrome Lumbar spine pain Measles Menopause Neck pain (02/26/16) Osteoarthritis Osteopenia Piriformis syndrome of right side Post traumatic stress disorder (PTSD) (~2007) Psoriasis Right buttock pain Right foot drop Right hamstring injury Right hip impingement syndrome Shoulder pain Skin problem (~2013) Thyroid nodule (~1996) Surgical History Anesthesia H/O shoulder surgery (~2004) History of cystoscopy History of spinal fusion (07/07/14) History of thyroidectomy Personal history of prior ablation treatment Status post delivery Status post lumbar spinal fusion Status post tonsillectomy and adenoidectomy Family History Grandmother Bipolar disorder Mother Bipolar disorder Alzheimer's dementia Social History marital status: household members: spouse pets and animals: Yes education level: college occupational status: other joshua/advent: Other travel history: other leisure activities: other other: Walking, hiking, Pilates, Esther, writing seatbelt use: always water heater temp set < 120 deg: Yes working smoke detector in home: Yes fire extinguisher in home: Yes carbon monox detector in home: Yes firearms in home: No Smoking Status: Former smoker alcohol intake: current substance use type: does not use well-balanced diet: daily or most days caffeine: Yes eating out: other frequency: daily duration: 45-60 minutes/day Smoking Status: Former smoker alcohol intake frequency: holidays/special occasions only Substance Use Type: does not use Exam Initial Vital Signs Initial Vital Signs: Vital Signs Temperature 98.2 F 09/19/20 15:45 Pulse Rate 92 H 09/19/20 15:45 Respiratory Rate 14 09/19/20 15:45 Blood Pressure 136/94 H 09/19/20 15:45 Pulse Oximetry 94 09/19/20 15:45 Const General: cooperative and comfortable Limitations: mental status not altered HENMT Head: normal to inspection and normocephalic Resp Effort & Inspection: normal respiratory effort Auscultation: clear to auscultation bilaterally Cardio Rate: regular rate Rhythm: regular rhythm GI Inspection: distended Palpation: soft, No firm and No tender Auscultation: abnormal bowel sounds (Decreased) Skin Lesions: no lesions Rashes: no rashes Neuro General: patient alert, patient awake and patient oriented x3 Cognition: normal cognition Speech: speech normal Extrem General: normal to inspection and capillary refill normal Psych Appearance: grossly normal and well kempt Course Orders Ordered: ED Orders 09/19/20 16:02 CT abdomen pelvis w con Stat 09/19/20 16:15 Complete Blood Count AUTO DIFF Stat Comprehensive Metabolic Panel Stat Lactate (Lactic Acid) Stat Lipase Stat Vital Signs Vital signs: Vital Signs - 8 hr 09/19/20 15:45 09/19/20 15:47 09/19/20 16:00 Temperature 98.2 F Pulse Rate 92 H 102 H 89 Respiratory Rate 14 Blood Pressure 136/94 H 136/94 H Pulse Oximetry 94 95 96 09/19/20 16:30 09/19/20 17:00 09/19/20 17:30 Temperature Pulse Rate 80 80 85 Respiratory Rate Blood Pressure Pulse Oximetry 95 98 98 09/19/20 17:56 Temperature Pulse Rate Respiratory Rate Blood Pressure 127/81 Pulse Oximetry MDM - Nausea/Vomiting/Diarrhea Lab Data Attestation: I reviewed the patient's lab results. Result diagrams: 09/19/20 16:15 09/19/20 16:15 Labs: Lab Results 09/19/20 09/19/20 09/19/20 Range/Units 16:15 16:15 16:15 WBC 4.5 (4.5-11.0) X10^3/uL RBC 4.07 (4.0-5.2) X10^6/uL Hgb 12.0 (12.0-16.0) g/dL Hct 36.7 (36-46) % MCV 90.2 (80-100) fL MCH 29.6 (26-34) PG MCHC 32.8 (30-36) % RDW 14.2 (11.6-14.8) % Plt Count 319 (150-400) X10^3/uL Neut % (Auto) 52.1 (50-75) % Lymph % (Auto) 36.8 (25-40) % [place] % (Auto) 7.3 (3-14) % Eos % (Auto) 2.9 (2-4) % Baso % (Auto) 0.9 (0-2) % Neut # (Auto) 2400 (9119-6101) /uL Lymph # (Auto) 1700 (5261-2016) /uL [place] # (Auto) 300 (0-900) /uL Eos # (Auto) 100 (0-450) /uL Baso # (Auto) 0 (0-100) /uL Sodium 140 (137-145) mmol/L Potassium 3.9 (3.4-5.1) mmol/L Chloride 108 H (98-107) mmol/L Carbon Dioxide 23 (22-32) mmol/L BUN 19 H (7-17) mg/dL Creatinine 0.99 (0.52-1.04) mg/dL Estimated GFR 55.8 L (>60) mL/min BUN/Creatinine Ratio 19.2 (6-22) Glucose 104 (80-110) mg/dL Lactate 0.8 (0.7-2.1) mmol/L Calcium 9.5 (8.4-10.2) mg/dL Total Bilirubin 0.3 (0.2-1.3) mg/dL AST 25 (14-36) IU/L ALT 23 (<35) IU/L Alkaline Phosphatase 100 (38-126) U/L Total Protein 7.0 (6.3-8.2) g/dL Albumin 4.2 (3.5-5.0) g/dL Globulin 2.8 (1.7-4.1) g/dL Albumin/Globulin Ratio 1.5 (1.0-2.8) Lipase 207 (23-300) U/L Imaging Data CT scan - abdomen/pelvis: Radiologist's Impression: [address] [id number] Scan ReportSigned Patient: Sugar Parra KMR#: [id number]: 1950cct:[id number]/Sex: 70 / FDate of Service: 09/19/20Loc: EDAccession Number: [id number] Procedure: CT abdomen pelvis w con Ordering Provider: Anshu Conrad D.O. PROCEDURE: CT ABDOMEN PELVIS W CON INDICATIONS: Generalized abdominal pain, no bowel movement TECHNIQUE: After the administration of intravenous contrast, 5 mm thick sections acquired from the diaphragm to the symphysis. 5 mm coronal and sagittal reformats were acquired. For radiation dose reduction, the following was used: automated exposure control, adjustment of mA and/or kV according to patient size. COMPARISON: None. FINDINGS: Image quality: Excellent. ABDOMEN: Lung bases: Small infiltrate/atelectasis in posterior aspect of right lung base is seen. Left lung base is clear. Heart size is normal. Solid organs: Liver is normal in size . Mild hepatic steatosis is seen. Tiny 6 millimeter hypodensity involving posterior segment of inferior right hepatic lob e is seen and may represent hepatic cyst. Gallbladder is within normal limits. Biliary system is non dilated. Pancreas enhances normally. Spleen is normal in size and enhancement. No adrenal nodules. Kidneys demonstrate normal size and enhancement, without hydronephrosis. Multiple bilateral renal cysts are seen measures up to 2.3 x 1.6 cm in size in midpole of left kidney posteriorly. Peritoneum and bowel: Bowel loops demonstrate normal wall thickness and caliber. No free fluid or air. Significant fecal stasis throughout the colon is seen extending to the rectum. Appendix is visualized in right lower quadrant and is within normal limits. No abscess collection. Nodes and vessels: No retroperitoneal or mesenteric adenopathy by size criteria. Aorta and inferior vena cava are normal in size. Miscellaneous: No ventral hernias. PELVIS: Genitourinary: Bladder wall thickness is normal. Miscellaneous: No inguinal hernias or adenopathy. Bones: No suspicious bony lesions. Postfusion changes are noted in lower lumbar spine at L3 through L5 levels. No vertebral body compression fractures. IMPRESSION: 1. Moderate constipation. No abnormal bowel wall thickening. Normal appendix. No free fluid or free air. 2. Mild hepatic steatosis. 6 millimeter hypodensity in posterior segment of right hepatic lobe and may represent hepatic cyst. 3. Bilateral renal cysts. No renal stone or hydronephrosis. 4. Post fusion changes in lower lumbar spine as above. Dictated by: Ghulam Alvarado M.D. on 09/19/2020 at 17:00 Approved by: Ghulam Alvarado M.D. on 09/19/2020 at 17:03 [facility] Narrative Medical decision making narrative: Patient does have a benign abdominal exam. Labs are unremarkable. CT scan does not show any signs of obstruction. Discussed this with her. She is off of all of the opioid medications. She has nausea medication at home. No indication for surgical consultation. No indication for further radiologic studies today. We did discuss things she can do at home to help with the constipation to include laxatives, increasing her fluid intake and when the time comes enemas. We discussed the expected course over the next several days and what to return to the emergency department for. She expressed understanding and agreement. Discharge Plan Departure Patient Disposition: Home Clinical Impression: Constipation Instructions: DI for Constipation Activity Restrictions/Additional Instructions: I do recommend that you increase your fluid intake. Also recommend that you increase your fiber intake. Recommend a bland diet. Increase the amount of times that your taking the laxatives like we discussed. Continue all of your postoperative instructions given to you by the orthopedic surgeon. Return to the emergency department for fevers, vomiting, abdominal distention, or any other new or worsening symptoms Prescriptions: No Action lamotrigine [Lamictal] 200 MG tablet 200 mg PO QDAY Qty: 0 RF: 0 zolpidem [Ambien] 10 mg tablet See Rx Instructions PO BEDTIME PRN (Reason: insomnia) RF: 0 clobetasol 0.05 % ointment 1 applictn TOP BID 7 Days Qty: 15 RF: 2 valacyclovir [Valtrex] 1 gram tablet 1,000 mg PO DAILY Qty: 90 RF: 3 estradiol 0.01 % (0.1 mg/gram) cream See Rx Instructions .ROUTE .COMPLEX Qty: 42.5 RF: 1 lorazepam 1 mg tablet 0.5 mg PO BEDTIME PRNRF: 0 quetiapine [Seroquel XR] 400 mg tablet extended release 24 hr 400 mg PO BEDTIME RF: 0 quetiapine [Seroquel] 100 mg tablet 100 mg PO BEDTIME RF: 0 melatonin 3 mg capsule 1.5 mg PO BEDTIME PRNRF: 0 triamcinolone acetonide 0.05 % ointment 1 applictn TOP TID PRN (Reason: perineal rash) Qty: 430 RF: 3 triamcinolone acetonide 0.1 % ointment 1 applictn TOP BID PRN (Reason: itching/burning) Qty: 15 RF: 2 levothyroxine 137 mcg tablet 137 mcg PO QAM RF: 0 levothyroxine 150 mcg tablet 150 mcg PO DAILY RF: 0 quetiapine [Seroquel XR] 50 mg tablet extended release 24 hr 50 mg PO DAILY Qty: 1 RF: 0 Referrals: Negrita Page ARNP [Primary Care Provider] -
[2020-09-19 16:24] LABS: Add Manual Diff / Slide Review NO; Basophils Absolute Auto 0 /uL (0-100); Basophils Percent Auto 0.9 % (0-2); Eosinophils Absolute Auto 100 /uL (0-450); Eosinophils Percent Auto 2.9 % (2-4); Hematocrit 36.7 % (36-46); Lymphocytes Absolute Auto 1700 /uL (1100-4500); Lymphocytes Percent Auto 36.8 % (25-40); Mean Corpuscular HGB Conc 32.8 % (30-36); Mean Corpuscular Hemoglobin 29.6 PG (26-34); Mean Corpuscular Volume 90.2 fL (80-100); Monocytes Absolute Auto 300 /uL (0-900); Monocytes Percent Auto 7.3 % (3-14); Neutrophils Absolute Auto 2400 /uL (1500-7000); Neutrophils Percent Auto 52.1 % (50-75); Platelet Count 319 X10^3/uL (150-400); Red Blood Cell Count 4.07 X10^6/uL (4.0-5.2); Red Cell Distribution Width 14.2 % (11.6-14.8); White Blood Cell Count 4.5 X10^3/uL (4.5-11.0)
[2020-09-19 16:40] LABS: Alanine Aminotransferase 23 IU/L (<35); Albumin 4.2 g/dL (3.5-5.0); Albumin Globulin Ratio 1.5 (1.0-2.8); Alkaline Phosphatase 100 U/L (38-126); Aspartate Aminotransferase 25 IU/L (14-36); BUN Creatinine Ratio 19.2 (6-22); Bilirubin Total 0.3 mg/dL (0.2-1.3); Blood Urea Nitrogen 19 mg/dL (7-17); Calcium 9.5 mg/dL (8.4-10.2); Carbon Dioxide 23 mmol/L (22-32); Chloride 108 mmol/L (98-107); Estimated Glomerular Filt Rate 55.8 mL/min (>60); Globulin 2.8 g/dL (1.7-4.1); Glucose 104 mg/dL (80-110); HEMOLYSIS < 15 (0-50); Lipase 207 U/L (23-300); Potassium 3.9 mmol/L (3.4-5.1); Sodium 140 mmol/L (137-145)
[2020-09-19 16:41] LABS: Lactate (Lactic Acid) 0.8 mmol/L (0.7-2.1)
== END 2020-09-19 18:12 | disposition home or self-care (01) ==
PROVIDERS: Emergency Provider Emergency Medicine; PCP Nurse Practitioner
DX: K59.00 Constipation, unspecified (principal); R10.84 Generalized abdominal pain; R11.0 Nausea
CPT/HCPCS: 36415; 74177; 80053; 83605; 83690; 85025; 99284

== ENCOUNTER → 2020-09-25 10:12 | Outpatient (CLI) | payer OTHER, SELFPAY ==
--- NOTE | 2020-09-25 10:14 | DI.RAD.S_ITS ---
PROCEDURE: XR ACUTE ABDOMEN SERIES INDICATIONS: abdominal pain TECHNIQUE: One view chest and two views of the abdomen were acquired. COMPARISON: [facility], CT, CT ABDOMEN PELVIS W CON, 09/19/2020, 16:53. FINDINGS: Surgical changes and devices: Lumbosacral spine fixation devices, previously present. Chest: Lungs are clear. Heart size is normal. No pleural effusions. No pneumoperitoneum. Abdomen: Bowel gas pattern is normal except for mild colonic obstipation on the right and the left side port. No suspicious calcifications. Visualized solid organ contours appear normal. Bones: No suspicious bony lesions. IMPRESSION: Nonspecific bowel gas pattern. No sign of intestinal obstruction or perforation. Mild colonic obstipation on the right and the left. Dictated by: Imer Fairbanks M.D. on 09/25/2020 at 10:43 Approved by: Imer Fairbanks M.D. on 09/25/2020 at 10:44
[2020-09-25 11:53] LABS: Alanine Aminotransferase 34 IU/L (<35); Albumin 4.4 g/dL (3.5-5.0); Albumin Globulin Ratio 1.4 (1.0-2.8); Alkaline Phosphatase 110 U/L (38-126); Aspartate Aminotransferase 34 IU/L (14-36); BUN Creatinine Ratio 14.3 (6-22); Bilirubin Total 0.2 mg/dL (0.2-1.3); Blood Urea Nitrogen 13 mg/dL (7-17); Calcium 9.5 mg/dL (8.4-10.2); Carbon Dioxide 24 mmol/L (22-32); Chloride 108 mmol/L (98-107); Estimated Glomerular Filt Rate > 60.0 mL/min (>60); Globulin 3.1 g/dL (1.7-4.1); Glucose 103 mg/dL (80-110); HEMOLYSIS < 15 (0-50); Potassium 4.2 mmol/L (3.4-5.1); Sodium 142 mmol/L (137-145); Total Protein 7.5 g/dL (6.3-8.2)
== END ==
PROVIDERS: PCP Nurse Practitioner; Referring Provider Registered Nurse; Visit Provider Registered Nurse
DX: R10.9 Unspecified abdominal pain (principal); K59.00 Constipation, unspecified
CPT/HCPCS: 36415; 74022; 80053

== ENCOUNTER → 2021-03-29 09:16 | Outpatient (CLI) | payer OTHER, SELFPAY ==
[2021-03-29 10:11] LABS: Add Manual Diff / Slide Review NO; Basophils Absolute Auto 0 /uL (0-100); Basophils Percent Auto 0.9 % (0-2); Eosinophils Absolute Auto 200 /uL (0-450); Eosinophils Percent Auto 5.1 % (2-4); Hematocrit 38.1 % (36-46); Hemoglobin 12.6 g/dL (12.0-16.0); Lymphocytes Absolute Auto 1200 /uL (1100-4500); Lymphocytes Percent Auto 27.1 % (25-40); Mean Corpuscular HGB Conc 33.1 % (30-36); Mean Corpuscular Hemoglobin 29.4 PG (26-34); Mean Corpuscular Volume 88.7 fL (80-100); Monocytes Absolute Auto 400 /uL (0-900); Monocytes Percent Auto 9.6 % (3-14); Neutrophils Absolute Auto 2600 /uL (1500-7000); Neutrophils Percent Auto 57.3 % (50-75); Platelet Count 273 X10^3/uL (150-400); Red Blood Cell Count 4.29 X10^6/uL (4.0-5.2); White Blood Cell Count 4.5 X10^3/uL (4.5-11.0)
[2021-03-29 10:37] LABS: C-Reactive Protein Quant < 0.5 mg/dL (<1.0); Uric Acid 4.2 mg/dL (2.5-6.2)
[2021-03-29 10:45] LABS: Erythrocyte Sedimentation Rate 14 MM/HR (0-20)
== END ==
PROVIDERS: PCP Nurse Practitioner; Referring Provider Registered Nurse Diabetes Educator; Visit Provider Registered Nurse Diabetes Educator
DX: M25.561 Pain in right knee (principal)
CPT/HCPCS: 36415; 84550; 85025; 85651; 86140

== ENCOUNTER → 2021-03-30 08:03 | Outpatient (CLI) | payer OTHER, SELFPAY ==
--- NOTE | 2021-03-30 08:04 | DI.RAD.S_ITS ---
PROCEDURE: XR KNEE RT 3V INDICATIONS: eval R knee pain/warmth, hx TKR/concern for infection/other TECHNIQUE: 3 views of the knee were acquired. COMPARISON: [facility], , KNEE 3V RIGHT, 08/10/2014, 12:46. FINDINGS: Bones: No fractures or dislocations. No suspicious bony lesions. Expected post operative alignment of right total knee arthroplasty. Soft tissues: No joint effusion. No suspicious soft tissue calcifications. Mild anterior soft tissue swelling IMPRESSION: Expected post operative alignment. No radiographic evidence of hardware loosening or failure. Mild anterior soft tissue swelling. Please correlate clinically Dictated by: Davidson Horn M.D. on 03/30/2021 at 8:50 Approved by: Davidson Horn M.D. on 03/30/2021 at 8:51
== END ==
PROVIDERS: PCP Nurse Practitioner; Referring Provider Registered Nurse Diabetes Educator; Visit Provider Registered Nurse Diabetes Educator
DX: M25.561 Pain in right knee (principal); M79.89 Other specified soft tissue disorders
CPT/HCPCS: 73562

== ENCOUNTER → 2021-06-29 15:10 | Outpatient (CLI) | payer OTHER, SELFPAY ==
--- NOTE | 2021-06-29 | DI.CT.S_ITS ---
PROCEDURE: CT LE RT WO CON INDICATIONS: FRACTURED RIGHT PATELLA TECHNIQUE: Noncontrast 1-1.5 mm axial sections acquired from the mid-patella to the proximal tibia, with coronal and sagittal reformats. COMPARISON: [facility], CR, XR KNEE RT 3V, 03/30/2021, 8:00. FINDINGS: Image quality: Diagnostic. Significant beam hardening artifacts are seen. Bones: Patient is status post right total knee arthroplasty. Right knee alignment is anatomic. There is periprosthetic fracture involving inferior portion of patella with up to 8 mm distal displacement of the fractured fragment. This is best seen on series 4, image 108. No evidence of hardware loosening or failure in distal femur or proximal tibia is seen. No dislocation. No suspicious intraosseous lesion. Soft tissues: Soft tissue swelling along anterior aspect of patella and patella tendon is seen. No gross full-thickness patellar or quadriceps tendon rupture. No abnormal soft tissue calcification is seen. No significant knee joint effusion. IMPRESSION: 1. Prior right total knee arthroplasty. Displaced inferior patellar body fracture as above. No other fracture or dislocation. No hardware complication is seen in distal femur or proximal tibia. Anatomic right knee alignment. 2. Soft tissue swelling and edema along anterior aspect of patella and patella tendon. No significant joint effusion. No abnormal soft tissue calcifications. Dictated by: Ghulam Alvarado M.D. on 06/29/2021 at 16:07 Approved by: Ghulam Alvarado M.D. on 06/29/2021 at 16:10
== END ==
PROVIDERS: PCP Nurse Practitioner; Referring Provider Orthopaedic Surgery; Visit Provider Orthopaedic Surgery
DX: S82.001A Unspecified fracture of right patella, initial encounter for closed fracture (principal); M97.11XA Periprosthetic fracture around internal prosthetic right knee joint, initial encounter
CPT/HCPCS: 73700

== ENCOUNTER → 2021-07-02 16:19 | Outpatient (CLI) | payer OTHER, SELFPAY ==
--- NOTE | 2021-07-02 16:21 | DI.MG.S_ITS ---
BILATERAL DIGITAL SCREENING MAMMOGRAM 3D/2D WITH CAD: 07/02/2021 CLINICAL: Routine screening. Comparison is made to exams dated: 04/18/2020 mammogram, 03/10/2019 mammogram, and 10/24/2017 mammogram - [facility]. The tissue of both breasts is heterogeneously dense. This may lower the sensitivity of mammography. Current study was also evaluated with a Computer Aided Detection (CAD) system. No significant masses, calcifications, or other findings are seen in either breast. There has been no significant interval change. IMPRESSION: NEGATIVE There is no mammographic evidence of malignancy. A 1 year screening mammogram is recommended. This exam was interpreted at Station ID: [id number]. NOTE: For mammograms, a report in lay terms will be sent to the patient. Approximately 15% of breast malignancies will not be visualized mammographically. In the management of a palpable breast mass, a negative mammogram must not discourage biopsy of a clinically suspicious lesion. Electronically Signed By: Anitha slaughter/nkechi:07/03/2021 10:34:45 letter sent: Normal Exam ACR BI-RADS Category 1: Negative [id number]
== END ==
PROVIDERS: PCP Nurse Practitioner; Referring Provider Nurse Practitioner; Visit Provider Nurse Practitioner
DX: Z12.31 Encounter for screening mammogram for malignant neoplasm of breast (principal)
CPT/HCPCS: 77063; 77067

== ENCOUNTER → 2021-08-14 14:53 | Outpatient (CLI) | payer OTHER, SELFPAY | PROVIDERS: PCP Nurse Practitioner; Referring Provider Nurse Practitioner; Visit Provider Nurse Practitioner | DX: Z78.0 Asymptomatic menopausal state (principal); M85.89 Other specified disorders of bone density and structure, multiple sites | CPT/HCPCS: 77080 ==

== ENCOUNTER → 2021-12-19 15:25 | Outpatient (CLI) | payer OTHER, SELFPAY ==
--- NOTE | 2021-12-19 15:28 | DI.RAD.S_ITS ---
PROCEDURE: XR CERVICAL SPINE 2V OR 3V INDICATIONS: neck pain TECHNIQUE: 3 view(s) of the cervical spine were acquired. COMPARISON: None. FINDINGS: These images demonstrate a remote C6 spinous process fracture which has healed in nonunion with displacement of the avulsed fracture fragment measuring approximately 7 millimeters. No additional fracture identified. Degenerative straightening of the usual cervical lordosis. Approximately 4 millimeter anterolisthesis of C4 on C5. Extensive facet and uncovertebral hypertrophy throughout the cervical spine at each level, most pronounced in the upper cervical spine with severe loss of joint space at C2-C3, C3-C4, and C4-C5, resulting in suspected [id number] contact tact. There is subchondral sclerosis and cystic change at these levels. Posterior osteophytic ridging of the endplates is most notable at C5-C6 and C6-C7. IMPRESSION: Overall moderate to severe upper and mid cervical spine degenerative changes. MRI recommended for further evaluation. Dictated by: Leobardo Guerra M.D. on 12/19/2021 at 22:04 Approved by: Leobardo Guerra M.D. on 12/19/2021 at 22:06
== END ==
PROVIDERS: PCP Nurse Practitioner; Referring Provider Nurse Practitioner; Visit Provider Nurse Practitioner
DX: M54.2 Cervicalgia (principal); M47.812 Spondylosis without myelopathy or radiculopathy, cervical region
CPT/HCPCS: 72040

== ENCOUNTER → 2021-12-22 13:10 | Outpatient (CLI) | payer OTHER, SELFPAY ==
--- NOTE | 2021-12-22 13:11 | DI.MRI.S_ITS ---
PROCEDURE: MR CERVICAL SPINE WO CON INDICATIONS: Abnomality of CT TECHNIQUE: Noncontrast sagittal T1 spin echo and T2 fast spin echo, sagittal STIR, foraminal oblique sagittal T2 fast spin echo, and axial gradient echo or T2 fast spin echo through the cervical spine. COMPARISON: [facility], CR, XR CERVICAL SPINE 2V OR 3V, 12/19/2021, 15:31. FINDINGS: Image quality: Excellent. Alignment and Curvature: There is approximately 3 millimeters of C4-C5 anterolisthesis. There is approximately 2 millimeters of C3-C4 and C7-T1 anterolisthesis. Bone Marrow: Mild Modic type 2 reactive endplate changes noted adjacent to the C5-C6 and C6-C7 discs. Spinal Cord: Visualized spinal cord has normal size and signal. No cerebellar tonsillar herniation. Paraspinous Soft Tissues: No paravertebral masses. Prevertebral soft tissues are normal in thickness. C2-C3: Loss of disc signal. Mild right facet hypertrophy. No central stenosis. No neural foraminal narrowing. No neural compression. C3-C4: Loss of disc signal. Mild right facet hypertrophy. Mild left uncovertebral joint hypertrophy. No central stenosis. Mild right neural foraminal narrowing. No neural compression C4-C5: Loss of disc signal. Mild, diffuse disc bulge. Mild bilateral facet hypertrophy. Mild bilateral uncovertebral hypertrophy. Mild right neural foraminal narrowing. No neural compression. C5-C6: Loss of disc signal and height. Moderate, diffuse disc bulge. Mild bilateral facet hypertrophy. Mild right and moderate left uncovertebral joint hypertrophy. Mild left neural foraminal narrowing. No neural compression. C6-C7: Loss of disc signal and height. Moderate, diffuse disc bulge. Mild bilateral facet hypertrophy. Mild right and moderate left uncovertebral joint hypertrophy. Mild narrowing of the central canal. Mild to moderate left neural foraminal narrowing. No neural compression. C7-T1: Loss of disc signal. Mild, diffuse disc bulge. No central stenosis. No neural foraminal narrowing. No neural compression. IMPRESSION: 1. Multilevel degenerative disc disease. 2. Multilevel facet arthropathy. 3. No severe central canal narrowing. 4. No severe neural foraminal narrowing. 5. No neural compression. Dictated by: Yuridia Dia MD, PhD on 12/24/2021 at 9:56 Approved by: Yuridia Dia MD, PhD on 12/24/2021 at 10:00
== END ==
PROVIDERS: PCP Nurse Practitioner; Referring Provider Nurse Practitioner; Visit Provider Nurse Practitioner
DX: M47.812 Spondylosis without myelopathy or radiculopathy, cervical region (principal); M50.321 Other cervical disc degeneration at C4-C5 level
CPT/HCPCS: 72141

== ENCOUNTER → 2021-12-24 11:45 | Outpatient (CLI) | payer OTHER, SELFPAY ==
[2021-12-24 12:44] LABS: COVID19 -Nasal RAPID Negative (Negative)
== END ==
PROVIDERS: PCP Nurse Practitioner; Visit Provider Physical Medicine & Rehabilitation
DX: Z20.822 Contact with and (suspected) exposure to COVID-19 (principal)
CPT/HCPCS: 87635; C9803

== ENCOUNTER 2021-12-25 10:15 | Outpatient (CLI) | payer OTHER, SELFPAY ==
[2021-12-25] VITALS (8 sets, daily range): BP systolic 111–156; BP diastolic 60–91; PULSE 65–87; RESP 13–20; TEMP 36.1; O2SAT 95–100
--- NOTE | 2021-12-25 10:18 | DI.RAD.S_ITS ---
PROCEDURE: PAIN L/SI FACET INJ/BLK 1STL INDICATIONS: SPONDYLOSIS COMPARISON: [facility], , LUMBAR TRANSFORAMINAL ELIER, 03/07/2021, 11:38. FINDINGS: Fluoroscopic spot filming was performed to verify placement of spinal needles on the right at the L5-S1 levels, as labeled on the films. Appropriate location of the needle tips was confirmed by injection of iodinated contrast. IMPRESSION: Intraprocedural examination demonstrating appropriate positions of the needles. Dictated by: Lopez Olmos M.D. on 12/25/2021 at 11:09 Approved by: Lopez Olmos M.D. on 12/25/2021 at 11:09
--- NOTE | 2021-12-25 10:53 | PC.NURSE ---
disregard charting from time of [id number] entered on wrong patient
[2021-12-25] MEDS: MIDAZOLAM 2 MG/2 ML VIAL IV (11:17)
[2021-12-25] MEDS: IOPAMIDOL 15 ML VIAL 3 ML INJ (11:19)
[2021-12-25] MEDS: BUPIVACAINE 0.5% (PF) VIAL 2 ML INJ (11:19)
--- NOTE | 2021-12-25 11:30 | PM.PROC.IR.1 ---
Date/Time/Diagnoses Date of procedure: 12/25/21 Time of procedure: 11:30 Pre-procedure diagnosis: 1. FACET ARTHROPATHY Post-procedure diagnosis: same Procedure Notes Procedure: 1. Right L5 and S1 MB BLOCKS LA Indications: Sugar is referred by Dr. Page for treatment of Right Axial LBP. Physician: Joaquín Justice Total Fluoroscopy time (seconds): 8 Total sedation minutes: 11 Complications: none Procedure in detail & Post-procedure care: DESCRIPTION OF PROCEDURE Fluoroscopically guided, contrast-controlled right L5 and S1 medial branch blocks with 0.5cc of 0.5% Marcaine. Following review of allergy and review of potential side effects and complications, including, but not necessarily limited to, infection, allergic reaction, local tissue breakdown, nerve injury, paralysis, stroke and possible , the patient indicated that the patient understood and agreed to proceed. An informed consent document was signed by the patient, witnessed by a nurse, and placed in the patient's chart. After review of previous anaesthesic history and IV conscious sedation the patient was deemed safe to proceed with today?s procedure with IV conscious sedation as ASA class II designation. Safety time-out was performed to confirm patient ID, procedure to be performed and site of procedure. IV sedation was accomplished with a combination of 2mg of Versed was administered by the RN after DO order, titrated to patient comfort during the course of the procedure while the patient remained responsive to all verbal commands In the prone position, following sterile prep and drape of the lumbar region, the right L5 and S1 anatomical location of the medial branch of the dorsal ramus was identified fluoroscopically. Subsequently an anesthetic skin wheal using 1% lidocaine solution was initiated at each of the anatomical spots. Subsequently then a 22-gauge 3.5-inch spinal needle was atraumatically introduced and advanced under fluoroscopic guidance at each of the corresponding sites at the right L5 and S1 MB. After negative aspiration, 0.2 cc of Isovue 200 was injected, confirming placement without vascular or intrathecal uptake. Subsequently then 0.5 cc of 0.5% Marcaine solution was injected at each of the corresponding sites at the right L5 and S1 medial branch locations. The patient tolerated the procedure well without signs or symptoms of complications. The procedure tolerated the procedure well without signs or symptoms of complications prior to transfer to the recovery area continued monitoring without incident. Post-procedure, the patient was monitored initiating provocative activities to measure the amount of relief from block of the facetogenic pain. The patient reported a VAS of 7 prior to the procedure and a post-procedure VAS of 1. It has been a pleasure to assist in the diagnostic and therapeutic care of your patient. POST OP INSTRUCTIONS The patient was provided with a Pain Log to complete over the next several hours and subsequent days prior to the patient's follow up with the ordering physician. If the patient has conference services director relief to the solution applied, then they may be a candidate for medial branch rhizotomy. The patient is aware, was provided, once again, with a Pain Log and will follow up with the referring physician for review and clinical correlation.
== END 2021-12-25 12:01 | disposition home or self-care (01) ==
LOC: RAD 10:17
PROVIDERS: PCP Nurse Practitioner; Referring Provider Physical Medicine & Rehabilitation; Visit Provider Physical Medicine & Rehabilitation
DX: M47.816 Spondylosis without myelopathy or radiculopathy, lumbar region (principal); M47.817 Spondylosis without myelopathy or radiculopathy, lumbosacral region
CPT/HCPCS: 64493; 99152; J2250

== ENCOUNTER → 2022-03-14 15:43 | Outpatient (CLI) | payer OTHER, SELFPAY ==
--- NOTE | 2022-03-14 | DI.CT.S_ITS ---
PROCEDURE: CT HEAD/BRAIN WO CON INDICATIONS: Other spondylosis with radiculopathy, cervical region TECHNIQUE: Noncontrast 4.5 mm thick angled axial sections acquired from the foramen magnum to the vertex, with coronal and sagittal reformats. For radiation dose reduction, the following was used: automated exposure control, adjustment of mA and/or kV according to patient size. COMPARISON: None. FINDINGS: Image quality: Excellent. CSF spaces: Basal cisterns are patent. No extra-axial fluid collections. The ventricles are symmetric in size and shape. Brain: No intracranial bleeds or masses. There is cerebral volume loss for age, with resultant ventricular and sulcal prominence. There are periventricular and deep white matter chronic small vessel ischemic changes. There is intracranial internal carotid artery atherosclerosis. Skull and face: Calvarium and visualized facial bones appear intact, without suspicious lesions. Sinuses: Visualized sinuses and mastoids are clear. Within the visualized cervical spine, there is at least moderate facet hypertrophy seen on the right at C2-C3 and C3-C4. IMPRESSION: Asymmetric facet arthropathy seen on the right at C2-C3 and C3-C4. Please consider a dedicated follow-up cervical spine MRI for further evaluation. No significant intracranial abnormality is seen. Dictated by: Lopez Olmos M.D. on 03/14/2022 at 15:28 Approved by: Lopez Olmos M.D. on 03/14/2022 at 15:29
== END ==
PROVIDERS: PCP Nurse Practitioner; Referring Provider Neurological Surgery; Visit Provider Neurological Surgery
DX: M47.22 Other spondylosis with radiculopathy, cervical region (principal)
CPT/HCPCS: 70450

== ENCOUNTER 2022-04-02 08:18 | Outpatient (CLI) | payer OTHER, SELFPAY ==
[2022-04-02] VITALS (8 sets, daily range): BP systolic 114–147; BP diastolic 67–112; PULSE 60–95; RESP 15–20; TEMP 36.6; O2SAT 97–100
--- NOTE | 2022-04-02 08:22 | DI.RAD.S_ITS ---
PROCEDURE: PAIN L/SI FACET INJ/BLK 1STL INDICATIONS: SPONDYLOSIS COMPARISON: [facility], , PAIN L/SI FACET INJ/BLK 1STL, 12/25/2021, 11:20. FINDINGS: Fluoroscopic spot filming was performed to verify placement of spinal needles at the right L5-S1 neural foramen level(s), as labeled on the films. Appropriate location(s) of the needle tip(s) was confirmed by injection of iodinated contrast. IMPRESSION: Access needle at the right L5-S1 neural foramen for L5 median branch block. Dictated by: Yuridia Dia MD, PhD on 04/02/2022 at 14:12 Approved by: Yuridia Dia MD, PhD on 04/02/2022 at 14:13
[2022-04-02] MEDS: MIDAZOLAM 2 MG/2 ML VIAL IV (09:22)
[2022-04-02] MEDS: IOPAMIDOL 15 ML VIAL 3 ML INJ (09:29)
[2022-04-02] MEDS: BUPIVACAINE 0.5% MDV 5 ML SUBCUT (09:29)
--- NOTE | 2022-04-02 09:38 | PM.PROC.IR.1 ---
Date/Time/Diagnoses Date of procedure: 04/02/22 Time of procedure: 09:38 Post-procedure diagnosis: same Procedure Notes Procedure: 1. Right L5 and S1 MB BLOCKS SA Indications: Sugar is referred by NURIS Burgos for treatment of Right Axial LBP. Physician: Joaquín Justice Total Fluoroscopy time (seconds): 3 Total sedation minutes: 12 Complications: none Procedure in detail & Post-procedure care: DESCRIPTION OF PROCEDURE Fluoroscopically guided, contrast-controlled right L5 and S1 medial branch blocks with 0.5cc of 2% Lidocaine. Following review of allergy and review of potential side effects and complications, including, but not necessarily limited to, infection, allergic reaction, local tissue breakdown, nerve injury, paralysis, stroke and possible , the patient indicated that the patient understood and agreed to proceed. An informed consent document was signed by the patient, witnessed by a nurse, and placed in the patient's chart. After review of previous anaesthesic history and IV conscious sedation the patient was deemed safe to proceed with today?s procedure with IV conscious sedation as ASA class II designation. Safety time-out was performed to confirm patient ID, procedure to be performed and site of procedure. IV sedation was accomplished with a combination of 2mg of Versed and 50mcg of Fentanyl was administered by the RN after DO order, titrated to patient comfort during the course of the procedure while the patient remained responsive to all verbal commands In the prone position, following sterile prep and drape of the lumbar region, the right L5 and S1 anatomical location of the medial branch of the dorsal ramus was identified fluoroscopically. Subsequently an anesthetic skin wheal using 1% lidocaine solution was initiated at each of the anatomical spots. Subsequently then a 22-gauge 3.5-inch spinal needle was atraumatically introduced and advanced under fluoroscopic guidance at each of the corresponding sites at the right L5 and S1 MB. After negative aspiration, 0.2 cc of Isovue 200 was injected, confirming placement without vascular or intrathecal uptake. Subsequently then 0.5 cc of 2% Lidocaine solution was injected at each of the corresponding sites at the right L5 and S1 medial branch locations. The patient tolerated the procedure well without signs or symptoms of complications. The procedure tolerated the procedure well without signs or symptoms of complications prior to transfer to the recovery area continued monitoring without incident. Post-procedure, the patient was monitored initiating provocative activities to measure the amount of relief from block of the facetogenic pain. The patient reported a VAS of 7 prior to the procedure and a post-procedure VAS of 1. It has been a pleasure to assist in the diagnostic and therapeutic care of your patient. POST OP INSTRUCTIONS The patient was provided with a Pain Log to complete over the next several hours and subsequent days prior to the patient's follow up with the ordering physician. If the patient has sales representative church furniture relief to the solution applied, then they may be a candidate for medial branch rhizotomy. The patient is aware, was provided, once again, with a Pain Log and will follow up with the referring physician for review and clinical correlation.
== END 2022-04-02 09:54 | disposition home or self-care (01) ==
LOC: RAD 08:19
PROVIDERS: PCP Physician Assistant; Referring Provider Physical Medicine & Rehabilitation; Visit Provider Physical Medicine & Rehabilitation
DX: M47.816 Spondylosis without myelopathy or radiculopathy, lumbar region (principal); Z98.1 Arthrodesis status
CPT/HCPCS: 64493; 99152; J2250

== ENCOUNTER → 2022-05-16 10:12 | Outpatient (CLI) | payer OTHER, SELFPAY ==
--- NOTE | 2022-05-16 10:13 | DI.RAD.S_ITS ---
PROCEDURE: XR LUMBAR SPINE MIN 4V INDICATIONS: BACK PAIN TECHNIQUE: 5 views of the lumbar spine were acquired, including bilateral oblique views. COMPARISON: [facility], , L-SPINE 2-3 VIEWS, 05/15/2012, 12:06. FINDINGS: Bones: Convex left lumbar scoliosis. There is been interval L3-4 and L4-5 discectomy and fusion with posterior pilar and screw instrumentation in appropriate position. L2-3 disc space narrowing and hypertrophic facet joints present throughout the exam. Soft tissues: Overlying bowel gas pattern is normal. No suspicious soft tissue calcifications. Oblique images: No pars defects. IMPRESSION: L3-4 and L4-5 discectomy and fusion with instrumentation in good position. Degenerative disc disease, arthropathy and lumbar levoscoliosis Approved by: Watson Langford M.D. on 05/16/2022 at 17:18
== END ==
PROVIDERS: PCP Family Medicine; Referring Provider Physical Medicine & Rehabilitation; Visit Provider Physical Medicine & Rehabilitation
DX: M47.816 Spondylosis without myelopathy or radiculopathy, lumbar region (principal); M51.36 Other intervertebral disc degeneration, lumbar region; M41.9 Scoliosis, unspecified; Z98.1 Arthrodesis status
CPT/HCPCS: 72110

== ENCOUNTER → 2022-05-22 17:11 | Outpatient (CLI) | payer OTHER, SELFPAY ==
--- NOTE | 2022-05-22 17:16 | DI.MRI.S_ITS ---
PROCEDURE: MR KNEE LT WO CON INDICATIONS: pain and imobility TECHNIQUE: Noncontrast sagittal PD fast spin echo and T2 fast spin echo with fat saturation, sagittal 3-D FLASH with fat saturation; coronal T1 spin echo and PD fast spin echo with fat saturation, and axial PD fast spin echo with fat saturation through the knee. COMPARISON: [facility], CR, XR KNEE 4+ VIEWS BILATERAL, 06/20/2021, 10:42. FINDINGS: Image quality: Excellent. Menisci: The medial meniscus demonstrates a small focus of linear oblique high T2 signal intensity traversing the middle and peripheral thirds of the posterior horn medial meniscus demonstrating inferior articular surface extension (series 7, image 10), suggestive of an oblique undersurface tear. There is fragmentation and amorphous high signal intensity involving the anterior horn, body, and posterior horn lateral meniscus, demonstrating superior and inferior articular surface extension, indicating complex tearing. Cruciate ligaments: The anterior and posterior cruciate ligaments appear intact. Medial structures: The medial collateral ligament appears intact. Visualized portions of the pes anserinus tendons appear normal. Moderate medial bursal fluid. Lateral structures: The lateral collateral ligament, long and short heads of the biceps femoris tendon appear intact. The popliteus tendon appears normal. Iliotibial band appears normal. Anterior structures: The quadriceps and patellar tendons appear intact. Patellar alignment is normal. No femoral trochlear dysplasia or ventral trochlear prominence. Moderate edema in the infrapatellar fat pad. Bones and cartilage: No bone marrow contusions or fractures. Subchondral cyst formation within the lateral patellar facet. Moderate tricompartmental periarticular osteophyte formation. Mild articular cartilage loss diffusely overlies the weight-bearing aspects of the medial femoral condyle and medial tibial plateau. Severe articular cartilage loss diffusely overlies the weight-bearing aspects of the lateral femoral condyle and lateral tibial plateau. Severe articular cartilage loss overlies the patellar apex, lateral patellar facet, and lateral femoral trochlea. Joint space: There is a moderate knee joint effusion and a small Olmos's cyst. Multiple intra-articular loose bodies are present, largest of which are in the posterior aspect of the knee joint measuring roughly 7 mm. Normal appearing synovial plicae are incidentally noted. IMPRESSION: 1. Tricompartmental osteoarthritis with associated articular cartilage loss. 2. Medial and lateral meniscal tearing. 3. Findings consistent with lateral patellofemoral friction syndrome in the appropriate clinical setting. 4. Knee joint effusion and Olmos's cyst. Intra-articular loose bodies. 5. Medial bursitis. Dictated by: Saumya Oropeza M.D. on 05/23/2022 at 9:37 Approved by: Saumya Oropeza M.D. on 05/23/2022 at 9:40
== END ==
PROVIDERS: PCP Family Medicine; Referring Provider Family Medicine; Visit Provider Family Medicine
DX: S83.242A Other tear of medial meniscus, current injury, left knee, initial encounter (principal); S83.282A Other tear of lateral meniscus, current injury, left knee, initial encounter; M17.12 Unilateral primary osteoarthritis, left knee; M25.462 Effusion, left knee; M71.22 Synovial cyst of popliteal space [Baker], left knee; M71.562 Other bursitis, not elsewhere classified, left knee; M25.562 Pain in left knee; R26.9 Unspecified abnormalities of gait and mobility
CPT/HCPCS: 73721

== ENCOUNTER 2022-06-13 07:28 | Outpatient (CLI) | payer OTHER, SELFPAY ==
[2022-06-13] VITALS (10 sets, daily range): BP systolic 107–120; BP diastolic 59–82; PULSE 79–104; RESP 14–21; TEMP 36.2; O2SAT 95–100
--- NOTE | 2022-06-13 07:31 | DI.RAD.S_ITS ---
PROCEDURE: PAIN L/S MED/LAT N RFA INDICATIONS: SPONDYLOSIS COMPARISON: [facility], CR, XR LUMBAR SPINE MIN 4V, 05/16/2022, 10:17. [facility], XA, PAIN L/SI FACET INJ/BLK 1STL, 04/02/2022, 10:29. FINDINGS: Fluoroscopic spot filming was performed to verify placement of spinal needles on the right at the L5 and S1 levels, as labeled on the films. IMPRESSION: Images during rhizotomy within normal limits. Dictated by: Lopez Olmos M.D. on 06/13/2022 at 19:00 Approved by: Lopez Olmos M.D. on 06/13/2022 at 19:00
[2022-06-13] MEDS: MIDAZOLAM 2 MG/2 ML VIAL 4 MG IV (08:34)
[2022-06-13] MEDS: BUPIVACAINE 0.5% (PF) 30 ML VIAL 5 ML INJ (08:38)
[2022-06-13] MEDS: LIDOCAINE 1% (PF) 5 ML INJ (08:39)
--- NOTE | 2022-06-13 09:00 | P.PCN_ITS ---
Date/Time/Diagnoses Date of procedure: 06/13/22 Time of procedure: 09:00 Pre-procedure diagnosis: 1. RECALCITRANT FACET ARTHROPATHY Post-procedure diagnosis: same Procedure Notes Procedure: 1. RIGHT L5 MEDIAL BRANCH RADIOFREQUENCY NEUROTOMY AND RIGHT S1 DORSAL RAMUS BRANCH RADIOFREQUENCY NEUROTOMY Indications: Sugar is referred by Dr. Kyle for treatment of facet arthropathy. Physician: Joaquín Justice Total Fluoroscopy time (seconds): 20 Total sedation minutes: 31 Complications: none Procedure in detail & Post-procedure care: DESCRIPTION OF PROCEDURE Right L5 medial branch radiofrequency neurotomy and right S1 dorsal ramus branch radiofrequency neurotomy under fluoroscopy with conscious sedation. The patient is well known to this clinic having undergone previous facet injections with good but temporary relief. The patient has experienced appropriate, concordant relief with previous facet and median branch blocks but the patient's pain has been recalcitrant to further conservative measures. Therefore, based upon the patient's relief and persistent symptoms, the patient is considered an appropriate candidate for facet rhizotomy. All of the patient's questions regarding the risks versus benefits of the procedure, including, but not limited to, bleeding, infection, temporary as well as lasting nerve injury, paralysis, stroke, and , as well treatment alternatives were answered to satisfaction. After review of previous anaesthesic history and IV conscious sedation the patient was deemed safe to proceed with today?s procedure with IV conscious sedation as ASA class II designation. Safety time-out was performed to confirm patient ID, procedure to be performed and site of procedure. IV sedation was accomplished with a combination of 4mg of Versed was administered by the RN after DO order, titrated to patient comfort during the course of the procedure while the patient remained responsive to all verbal commands. After obtaining informed consent, denial of pertinent drug allergies, as well as being made aware of the potential risks of bleeding, infection, spinal cord trauma, paralysis, temporary and permanent nerve damage, seizure, stroke, and possible , the patient was brought to the fluoroscopy suite and positioned prone on the fluoroscopy table. The lumbar region was prepped with Betadine and covered with a fenestrated drape in the usual sterile fashion. Appropriate monitors applied including pulse oximeter, pulse, and blood pressure for regular monitoring throughout the procedure. After local infiltration using 1% lidocaine, under fluoroscopic guidance, a 10- cm RF insulated needle with a 10-mm active tip was positioned parallel to the junction of the right sacral ala and the superior articulating process where the S1 dorsal ramus resides. Needle placement was confirmed with sensory stimulation at 50 Hz, with motor stimulation of .5v on the right which produced local stimulation without radicular component. The stimulation was then increa sed to 2v with, once again, only local multifidus stimulation without radicular component. This was then followed by two discreet lesions performed at 80 degrees Celsius for 90 seconds each. The needle was then removed and the identical procedure was performed along the length of the right L5 medial branch with motor stimulation at .7v on the right. The patient tolerated the procedure well without signs or symptoms of complications prior to transfer to the recovery area continued monitoring without incident. The patient was then transferred to the recovery area where they were observed for an appropriate period of time after the injection. The patient was then transferred to the recovery area where they were observed for an appropriate period of time after the injection. The patient reported a VAS score of 8 prior to the procedure and a post- procedure VAS of 0. POST OP INSTRUCTIONS The patient was provided a Pain Log to continue to record the patient's response to the target-specific procedure prior to the patient's follow-up visit with the referring physician. Additionally, specific post-injection care instructions and a contact number to our office were provided if concerns arise regarding possible complications associated with the procedure are suspected.
== END 2022-06-13 09:13 | disposition home or self-care (01) ==
LOC: RAD 07:30
PROVIDERS: PCP Family Medicine; Referring Provider Physical Medicine & Rehabilitation; Visit Provider Physical Medicine & Rehabilitation
DX: M47.816 Spondylosis without myelopathy or radiculopathy, lumbar region (principal)
CPT/HCPCS: 64635; 99152; 99153; J2250

== ENCOUNTER 2022-07-11 17:10 | Emergency (ER) | payer OTHER, SELFPAY ==
--- NOTE | 2022-07-11 17:17 | DI.CT.S_ITS ---
PROCEDURE: CT HEAD/BRAIN WO CON INDICATIONS: fall TECHNIQUE: Noncontrast 4.5 mm thick angled axial sections acquired from the foramen magnum to the vertex, with coronal and sagittal reformats. For radiation dose reduction, the following was used: automated exposure control, adjustment of mA and/or kV according to patient size. COMPARISON: [facility], CT, CT CERVICAL SPINE WO CON, 07/11/2022, 17:39. [facility], CT, CT PEL WO CON, 07/11/2022, 17:39. [facility], CT, CT HEAD/BRAIN WO CON, 03/14/2022, 15:52. FINDINGS: Image quality: Mild streak artifact can be seen through the skull base. CSF spaces: Basal cisterns are patent. No extra-axial fluid collections. The ventricles are symmetric in size and shape. Brain: No intracranial bleeds or masses. There is cerebral volume loss for age, with resultant ventricular and sulcal prominence. There are periventricular and deep white matter chronic small vessel ischemic changes. There is intracranial internal carotid artery atherosclerosis. Skull and face: Calvarium and visualized facial bones appear intact, without suspicious lesions. Sinuses: Visualized sinuses and mastoids are clear. IMPRESSION: No acute intracranial hemorrhage is seen. No acute intracranial process is seen. Dictated by: Lopez Olmos M.D. on 07/11/2022 at 17:23 Approved by: Lopez Olmos M.D. on 07/11/2022 at 17:24
--- NOTE | 2022-07-11 17:17 | DI.CT.S_ITS ---
PROCEDURE: CT CERVICAL SPINE WO CON INDICATIONS: fall TECHNIQUE: Noncontrast 3 mm thick sections acquired from the skull base to the T4 level. Sagittal and coronal reformats were then constructed. For radiation dose reduction, the following was used: automated exposure control, adjustment of mA and/or kV according to patient size. COMPARISON: [facility], CT, CT HEAD/BRAIN WO CON, 07/11/2022, 17:39. [facility], MR, MR CERVICAL SPINE WO CON, 12/22/2021, 13:23. FINDINGS: Image quality: This examination is somewhat limited by quantum mottle artifact. Bones: No fractures or dislocations. Visualized superior ribs are intact. Degenerative changes are seen throughout, including moderate to severe disc space narrowing at C5-C6 and C6-C7. Mild grade 1 anterolisthesis is seen at C3-C4 and C4-C5. Soft tissues: Prevertebral soft tissues are normal in thickness. No paravertebral hematomas. No apical pneumothoraces. Prior thyroidectomy clips can be seen. IMPRESSION: Negative for acute fracture. Cervical spine degenerative changes are seen, which are worst inferiorly. Additional findings: Prior thyroidectomy Dictated by: Lopez Olmos M.D. on 07/11/2022 at 17:25 Approved by: Lopez Olmos M.D. on 07/11/2022 at 17:26
[2022-07-11 17:22] VITALS: BP 158/98; PULSE 80; RESP 20; TEMP 36.9; O2SAT 98
--- NOTE | 2022-07-11 17:30 | DI.CT.S_ITS ---
PROCEDURE: CT PEL WO CON INDICATIONS: rt hip injury 5 days ago TECHNIQUE: Noncontrast 3 mm axial sections acquired through the bony pelvis, with coronal and sagittal reformatting. COMPARISON: None. FINDINGS: Image quality: Good, but degraded by some metallic artifact Bones: There is a suspected bone island at the right ischium. Degenerative changes of the pubic symphysis. No displaced fracture is identified mild scattered degenerative changes. Partially seen lumbar fusion hardware. There are small bone fragment seen adjacent to the attachment of the right abductors. Soft tissues: Above average fecal loading. No intrapelvic hematoma identified. Suspected left dermoid cyst incidentally noted. IMPRESSION: No displaced fracture or dislocation. Some bone fragments are seen adjacent to the attachment of the right abductors, which could represent calcific tendinopathy versus age-indeterminate avulsion. Correlate with point tenderness and if necessary, MRI. Mild scattered degenerative changes. Other findings as above, including a suspected dermoid cyst on the left, for which ultrasound follow-up could be obtained. Dictated by: Randy Matias M.D. on 07/11/2022 at 19:02 Approved by: Randy Matias M.D. on 07/11/2022 at 19:06
--- NOTE | 2022-07-11 18:58 | ED_ITS ---
HPI - Fall <Damaris Hayes [facility] - Last Filed: 07/11/22 20:26> General Chief Complaint: Fall Stated Complaint: head injury s/p fall Time Seen by Provider: 07/11/22 17:17 Source: patient Mode of arrival: Ambulatory History of Present Illness HPI Narrative: This is a 72-year-old female presents to the emergency department after a fall she had 5 days ago onto her right side and buttocks with worsening concussive s ymptoms including nausea, brain fog, vision changes, headache, muscle aches, and fatigue. She states that she has been trying to do her normal activities without reducing her activity level and she has had worsening symptoms since her injury. She denies any vomiting or loss of consciousness but states that she had abnormal behavior the next day, has had ongoing headache and brain fog since. She denies neck pain but endorses muscular spasms in her back. She states she has chronic neck and back pain in his having radiation of her low back pain across her right hip. She denies pain while bearing weight but states that she feels pain to the top right posterior hip. She denies history of concussion head injury in the past. Patient has history of chronic low back pain, panic and anxiety, osteoporosis, hypothyroidism, bipolar 1, history of lumbar fusion. She denies current vision changes, weakness, urinary retention or incontinence, she does endorse sensitivity to light and sound, brain fog, intermittent headache and fatigue, denies dysuria, urinary frequency or urgency or abdominal pain. Related Data Home Medications Medication Instructions Recorded Confirmed lamotrigine 200 mg tablet 200 mg PO QDAY ##0 04/16/11 07/11/22 (Lamictal) zolpidem 10 mg tablet (Ambien) See Rx Instructions PO BEDTIME PRN 12/08/18 07/11/22 insomnia melatonin 3 mg capsule 1.5 mg PO BEDTIME PRN 03/17/19 07/11/22 quetiapine 100 mg tablet (Seroquel) 100 mg PO BEDTIME 03/17/19 07/11/22 quetiapine 400 mg tablet,extended 400 mg PO BEDTIME 03/17/19 07/11/22 release 24 hr (Seroquel XR) levothyroxine 137 mcg tablet 137 mcg PO QAM 02/27/21 07/11/22 levothyroxine 150 mcg tablet 150 mcg PO ONCE 05/17/22 07/11/22 buspirone 10 mg tablet 10 mg PO DAILY 05/27/22 07/11/22 lorazepam 0.5 mg tablet 0.5 mg PO BEDTIME 05/27/22 07/11/22 Previous Rx's Medication Instructions Recorded triamcinolone acetonide 0.05 % 1 applictn topical TID PRN 03/17/19 topical ointment perineal rash #430 grams triamcinolone acetonide 0.1 % 1 applictn topical BID PRN 07/21/19 topical ointment itching/burning #15 grams quetiapine 50 mg tablet,extended 50 mg PO DAILY #1 tab 08/11/20 release 24 hr (Seroquel XR) gabapentin 100 mg capsule 100 mg PO DAILY #90 caps 03/13/22 valacyclovir 1 gram tablet 1,000 mg PO DAILY #90 tabs 05/17/22 (Valtrex) tramadol 50 mg tablet 50 mg PO BID PRN pain #42 tabs 06/10/22 lidocaine 5 % topical patch 1 patch topical DAILY #15 ea 07/11/22 (Lidoderm) methocarbamol 500 mg tablet 500 mg PO Q8H PRN muscle spasm #20 07/11/22 tabs naproxen 375 mg tablet 375 mg PO Q12H PRN pain #20 tabs 07/11/22 ondansetron 4 mg disintegrating 4 mg PO Q8H PRN nausea and 07/11/22 tablet vomiting #10 tabs prednisone 20 mg tablet 20 mg PO DAILY #4 tabs 07/11/22 Allergies Allergy/AdvReac Type Severity Reaction Status Date / Time lovastatin [LOVASTATIN] Allergy Unknown Verified 07/11/22 16:38 Opioids - Morphine Analogues AdvReac Intermediate NAUSEA AND Verified 07/11/22 16:38 [OPIOIDS - MORPHINE CONFUSION ANALOGUES] Review of Systems <ML Streeter - Last Filed: 07/11/22 20:26> Review of Systems ROS Unobtainable: All systems reviewed & are unremarkable except as noted in HPI and below Patient History <ML Streeter - Last Filed: 07/11/22 20:26> Medical History Anterolisthesis of cervical spine Anxiety (~1999) Bipolar 1 disorder (~1969) Bladder spasms Cervical spine degeneration Chicken pox Chronic back pain (~2009) Chronic headaches (~2013) Chronic low back pain Chronic pain Contact dermatitis Decreased range of motion of right lower extremity Depression (~1967) Facet arthropathy, lumbar Facet arthropathy, multilevel Fall from ground level Femoral acetabular impingement Fracture of right patella Gait instability Gastroparesis (~1989) Genital herpes Hay fever (~1979) 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) Hyperlipidemia Hyperthyroidism Hypothyroidism (~1996) Iron deficiency anemia, unspecified (04/16/11) Itchy skin of anus and genitals Laceration of scalp Left knee DJD Lumbar post-laminectomy syndrome Lumbar spine pain Measles Menopause Neck pain (02/26/16) Osteoarthritis Osteopenia Osteophyte of cervical spine Osteoporosis with fracture Piriformis syndrome of right side Post traumatic stress disorder (PTSD) (~2007) Psoriasis Right buttock pain Right foot drop Right hamstring injury Right hip impingement syndrome Shoulder pain Skin problem (~2013) Thyroid nodule (~1996) Surgical History Anesthesia H/O shoulder surgery (~2004) History of cystoscopy History of spinal fusion (07/07/14) History of thyroidectomy History of total right knee replacement Personal history of prior ablation treatment Status post delivery Status post lumbar spinal fusion Status post tonsillectomy and adenoidectomy Family History Grandmother Bipolar disorder Mother Bipolar disorder Alzheimer's dementia Social History marital status: household members: spouse pets and animals: Yes education level: college occupational status: other joshua/latter-day: Other travel history: other leisure activities: other other: Walking, hiking, Pilates, Esther, writing seatbelt use: always water heater temp set < 120 deg: Yes working smoke detector in home: Yes fire extinguisher in home: Yes carbon monox detector in home: Yes firearms in home: No Smoking Status: Former smoker alcohol intake: current substance use type: does not use well-balanced diet: daily or most days caffeine: Yes eating out: other frequency: daily duration: 45-60 minutes/day Smoking Status: Former smoker alcohol intake frequency: holidays/special occasions only Substance Use Type: does not use Exam <ML Streeter - Last Filed: 07/11/22 20:26> Narrative Exam Narrative: Reviewed vitals signs and nursing notes. General: cooperative, uncomfortable, in mild distress due to low back pain and head discomfort, well groomed HEENT: symmetrical facial expressions, moist mucous membranes, PERRLA, normal phonation, nontender over cervical spine, range of motion intact Cardiovascular: regular rate and rhythm, no peripheral edema, warm extremities Respiratory: normal effort, able to speak in complete sentences, without wheezing, stridor, or abnormal breath sounds. No retractions or tachypnea. GI: abdomen soft, nontender to palpation, nondistended, without masses, rebound tenderness or exquisite tenderness with exam. MSK: moves all extremities, neurovascularly intact, no weakness, normal tone, nontender over cervical spine, paraspinal musculature is tense and tender to palpation bilaterally, lumbar spine is nontender to palpation as well including sacrum, paraspinal musculature is tender and tense, patient is having radiculopathy across the top of her posterior without radiation low or to her groin, patient is ambulatory with steady gait, bilateral strength in her lower extremities is equal, Skin: brisk capillary refill, without pallor or erythema Neuro: normal speech and cognition, A&O x3, ambulatory, clear speech, no focal neuro deficit Psych: mental status is grossly normal, congruent mood, normal affect, pleasant and cooperative Initial Vital Signs Initial Vital Signs: Vital Signs Temperature 98.4 F 07/11/22 17:22 Pulse Rate 80 07/11/22 17:22 Respiratory Rate 20 07/11/22 17:22 Blood Pressure 158/98 H 07/11/22 17:22 Pulse Oximetry 98 07/11/22 17:22 Oxygen Delivery Method 07/11/22 17:22 <Maldonado Sprague DO - Last Filed: 07/13/22 19:35> Initial Vital Signs Initial Vital Signs: Vital Signs Temperature 98.4 F 07/11/22 17:22 Pulse Rate 80 07/11/22 17:22 Respiratory Rate 20 07/11/22 17:22 Blood Pressure 158/98 H 07/11/22 17:22 Pulse Oximetry 98 07/11/22 17:22 Oxygen Delivery Method 07/11/22 17:22 Course <ML Streeter - Last Filed: 07/11/22 20:26> Orders Ordered: Discontinued Medications Acetaminophen (Acetaminophen 325 Mg Tablet) 650 mg PO NOW ONE Stop: 07/11/22 19:15 Last Admin: 07/11/22 19:44 Dose: 650 mg Documented By: RB Diazepam (Diazepam 5 Mg Tablet) 5 mg PO NOW ONE Stop: 07/11/22 19:15 Last Admin: 07/11/22 19:45 Dose: 5 mg Documented By: RB Ketorolac Tromethamine (Ketorolac 30 Mg/Ml Vial) 15 mg IM NOW ONE Stop: 07/11/22 19:15 Last Admin: 07/11/22 19:45 Dose: 15 mg Documented By: RB Lidocaine (Lidocaine Patch 1 Each Adh..Patch) 1 each TOP NOW ONE Stop: 07/11/22 19:15 Last Admin: 07/11/22 19:46 Dose: 1 each Documented By: RB Ondansetron HCl (Ondansetron 4 Mg Odt) 4 mg SL NOW ONE Stop: 07/11/22 19:15 Last Admin: 07/11/22 19:45 Dose: 4 mg Documented By: RB Prednisone (Prednisone 20 Mg Tablet) 20 mg PO NOW ONE Stop: 07/11/22 19:17 Last Admin: 07/11/22 19:45 Dose: 20 mg Documented By: RB Vital Signs Vital signs: Vital Signs - 8 hr 07/11/22 17:22 Temperature 98.4 F Pulse Rate 80 Respiratory Rate 20 Blood Pressure 158/98 H Pulse Oximetry 98 Oxygen Delivery Method Room Air <Maldonado Sprague DO - Last Filed: 07/13/22 19:35> Orders Ordered: Discontinued Medications Acetaminophen (Acetaminophen 325 Mg Tablet) 650 mg PO NOW ONE Stop: 07/11/22 19:15 Last Admin: 07/11/22 19:44 Dose: 650 mg Documented By: RB Diazepam (Diazepam 5 Mg Tablet) 5 mg PO NOW ONE Stop: 07/11/22 19:15 Last Admin: 07/11/22 19:45 Dose: 5 mg Documented By: RB Ketorolac Tromethamine (Ketorolac 30 Mg/Ml Vial) 15 mg IM NOW ONE Stop: 07/11/22 19:15 Last Admin: 07/11/22 19:45 Dose: 15 mg Documented By: RB Lidocaine (Lidocaine Patch 1 Each Adh..Patch) 1 each TOP NOW ONE Stop: 07/11/22 19:15 Last Admin: 07/11/22 19:46 Dose: 1 each Documented By: RB Ondansetron HCl (Ondansetron 4 Mg Odt) 4 mg SL NOW ONE Stop: 07/11/22 19:15 Last Admin: 07/11/22 19:45 Dose: 4 mg Documented By: RB Prednisone (Prednisone 20 Mg Tablet) 20 mg PO NOW ONE Stop: 07/11/22 19:17 Last Admin: 07/11/22 19:45 Dose: 20 mg Documented By: RB Vital Signs Vital signs: Vital Signs - 8 hr 07/11/22 17:22 Temperature 98.4 F Pulse Rate 80 Respiratory Rate 20 Blood Pressure 158/98 H Pulse Oximetry 98 Oxygen Delivery Method Room Air MDM - Fall <Damaris Hayes [facility] - Last Filed: 07/11/22 20:26> Lab Data Labs: Urine Dip Bedside Urine Glucose Negative Bedside Urine Bilirubin - Negative Bedside Urine Ketone - Negative Urine Specific Lutcher 1.02 Bedside Urine Occult Blood - Negative Bedside Urine pH 6.0 Bedside Urine Protein - Negative Bedside Urine Urobilinogen - Negative Bedside Urine Nitrite - Negative Bedside Urine Leukocytes - Negative Esterase Imaging Data CT scan - head: Radiologist's Impression: PROCEDURE:? CT HEAD/BRAIN WO CON ? INDICATIONS:? fall ? TECHNIQUE:? Noncontrast 4.5 mm thick angled axial sections acquired from the foramen magnum to the vertex, with coronal and sagittal reformats.? For radiation dose reduction, the following was used:? automated exposure control, adjustment of mA and/or kV according to patient size.? ? COMPARISON:? [facility], CT, CT CERVICAL SPINE WO CON, 07/11/2022, 17:39.? [facility], CT, CT PEL WO CON, 07/11/2022, 17:39.? [facility], CT, CT HEAD/BRAIN WO CON, 03/14/2022, 15:52. ? FINDINGS:? Image quality:? Mild streak artifact can be seen through the skull base. ? CSF spaces:? Basal cisterns are patent.? No extra-axial fluid collections.? The ventricles are symmetric in size and shape.? ? Brain:? No intracranial bleeds or masses.? There is cerebral volume loss for age, with resultant ventricular and sulcal prominence.? There are periventricular and deep white matter chronic small vessel ischemic changes.? There is intracranial internal carotid artery atherosclerosis.? ? Skull and face:? Calvarium and visualized facial bones appear intact, without suspicious lesions.? ? Sinuses:? Visualized sinuses and mastoids are clear.? IMPRESSION:? No acute intracranial hemorrhage is seen.? ? No acute intracranial process is seen.? ? ? Dictated by: Lopez Olmos M.D. on 07/11/2022 at 17:23 ? ? Approved by: Lopez Olmos M.D. on 07/11/2022 at 17:24 ? CT - cervical spine: Radiologist's Impression: PROCEDURE:? CT CERVICAL SPINE WO CON ? INDICATIONS:? fall ? TECHNIQUE:? Noncontrast 3 mm thick sections acquired from the skull base to the T4 level.? Sagittal and coronal reformats were then constructed.? For radiation dose reduction, the following was used:? automated exposure control, adjustment of mA and/or kV according to patient size.? ? COMPARISON:? [facility], CT, CT HEAD/BRAIN WO CON, 07/11/2022, 17:39.? [facility], MR, MR CERVICAL SPINE WO CON, 12/22/2021, 13:23. ? FINDINGS:? Image quality:? This examination is somewhat limited by quantum mottle artifact.? ? Bones:? No fractures or dislocations.? Visualized superior ribs are intact.? ? Degenerative changes are seen throughout, including moderate to severe disc space narrowing at C5-C6 and C6-C7.? Mild grade 1 anterolisthesis is seen at C3-C4 and C4-C5. ? Soft tissues:? Prevertebral soft tissues are normal in thickness.? No paravertebral hematomas.? No apical pneumothoraces.? Prior thyroidectomy clips can be seen. ? ? IMPRESSION:? Negative for acute fracture. ? Cervical spine degenerative changes are seen, which are worst inferiorly. ? ? Additional findings:? Prior thyroidectomy ? ? Dictated by: Lopez Olmos M.D. on 07/11/2022 at 17:25 ? ? Approved by: Lopez Olmos M.D. on 07/11/2022 at 17:26 ? CT pelvis w/ hip: Radiologist's Impression: PROCEDURE:? CT PEL WO CON ? INDICATIONS:? rt hip injury 5 days ago ? TECHNIQUE:? Noncontrast 3 mm axial sections acquired through the bony pelvis, with coronal and sagittal reformatting.? ? COMPARISON:? None. ? FINDINGS:? Image quality:? Good, but degraded by some metallic artifact ? Bones:? There is a suspected bone island at the right ischium.? Degenerative changes of the pubic symphysis.? No displaced fracture is identified mild scattered degenerative changes.? Partially seen lumbar fusion hardware.? There are small bone fragment seen adjacent to the attachment of the right abductors. ? Soft tissues:? Above average fecal loading.? No intrapelvic hematoma identified.? Suspected left dermoid cyst incidentally noted. ? ? IMPRESSION:? No displaced fracture or dislocation.? Some bone fragments are seen adjacent to the attachment of the right abductors, which could represent calcific tendinopathy versus age-indeterminate avulsion.? Correlate with point tenderness and if necessary, MRI.? Mild scattered degenerative changes.? Other findings as above, including a suspected dermoid cyst on the left, for which ultrasound follow-up could be obtained. ? Dictated by: Randy Matias M.D. on 07/11/2022 at 19:02 ? ? Approved by: Randy Matias M.D. on 07/11/2022 at 19:06 ? MDM Narrative Medical decision making narrative: Chief Complaint: Worsening pain and headache since fall Independent historian: Patient Differential diagnoses include but are not limited to: Intracranial hemorrhage, concussion, postconcussive syndrome vascular injury, venous thrombosis/CVA, acute fracture, ligamental injury, tension migraine, muscular strain, hardware failure of her lumbar hardware, basilar skull fracture, skull fracture, disc injury/herniation, degenerative disc disease, cauda equina or compressive syndrome, muscular strain acute on chronic low back pain secondary to injury. I have independently reviewed the patient's vital signs and nursing notes as well as prior records if available. Pertinent Imaging reviewed: Lumbar spine x-ray, pelvis CT, head CT, cervical spine CT all images are negative for acute abnormality, hemorrhage or acute fracture Clinical decision rules or scores evaluated: C-spine and [place] head CT rule opted in for imaging due to age and symptoms lasting for more than 2 days Course of care: I met with the patient, she does not have any focal neuro deficit, she is complaining of a headache, brain fog, sensitivity to light and sound, she is ambulatory with steady gait, complaining of right hip pain but on exam this appears to be radiculopathy, straight leg raise elicits worsening symptoms. She has history of chronic low back pain. Her pain today was treated with ketorolac, Zofran, diazepam 5 mg p.o. x1, Tylenol, lidocaine patch and prednisone x1 since her injury was 6 days ago and she is having new radiculopat hy today and was not having this previously. Likely she is having muscle spasms related to this. Her symptoms improved and she wishes to stay on anti- inflammatory medication as this provided the best effect. She would like to follow-up with Dr. Justice since she had an ablation 1 month ago and it is no longer working. X-ray of her lumbar spine does not show any acute fracture or hardware abnormality. She will follow-up with her PCP and orthopedic providers for postconcussive evaluation, evaluation of her acute on chronic back pain with radiculopathy, pain and was encouraged to follow up with her primary for referral to physical therapy. We discussed concussions at length and I gave her information from up-to-date on concussions in adults, a printout of how to progress activity levels based on symptoms and discussed how to avoid chores and increased activity at home until her symptoms go away. She states understanding and will schedule follow-up accordingly. No nystagmus, current vision changes, her symptoms improved markedly after her pain medication. Social considerations that may affect disposition: none Questions are addressed and there is agreement with the plan and for follow-up. Patient is appropriate for outpatient management. MIPS:Patient is 18 or older, presenting with minor blunt head trauma. Head CT (including cosigned orders) was ordered by an emergency care transitions nurse for trauma because the patient: [ ] is vomiting\ severe/dangerous mechanism of injury was identified [x ] is experiencing a severe headache [ ] sustained loss of consciousness [ ] GCS less than 15 [ x] is 65 years or older [x ] is experiencing amnesia of the event or focal neurologic deficit <Maldonado Sprague DO - Last Filed: 07/13/22 19:35> Lab Data Labs: Urine Dip Bedside Urine Glucose Negative Bedside Urine Bilirubin - Negative Bedside Urine Ketone - Negative Urine Specific Lutcher 1.02 Bedside Urine Occult Blood - Negative Bedside Urine pH 6.0 Bedside Urine Protein - Negative Bedside Urine Urobilinogen - Negative Bedside Urine Nitrite - Negative Bedside Urine Leukocytes - Negative Esterase Discharge Plan Departure Patient Disposition: Home Clinical Impression: Post concussion syndrome, Acute lumbar radiculopathy, History of lumbar fusion, Concussion without loss of consciousness Fall Qualifiers: Encounter type: subsequent encounter Qualified Code(s): W19.XXXD - Unspecified fall, subsequent encounter Instructions: Concussion, Postconcussion Syndrome, Lumbar Radiculopathy Activity Restrictions/Additional Instructions: *You have been diagnosed with a fall causing a concussion with ongoing concussive symptoms called postconcussive syndrome. Your low back pain is worse because everything is likely worse after your fall with muscle spasms and radiation of your pain across her hip. For your pain, please use naproxen morning and night with food and water, 1st spasms and muscle tension use methocarbamol although this will make you tired so use caution and do not drive on that medication. Take prednisone each morning with food and water to decrease inflammation around the nerve root. Take Tylenol 650 mg every 6 hours and no more than 4 g in 24 hours. Okay to take Tylenol with other medications this is not dangerous. Please use Zofran for nausea, treat herself for pain if you have any symptoms of headache, tension, not feeling her best. Please reduce your activity level until your symptoms go away and slowly add in things as tolerated if they do not cause concussive symptoms. There is no evidence of change to the hardware of your low back, no fracture or change to the disc space this is likely nerve root irritation. Please schedule follow-up with your providers, give yourself time to heal, you may benefit from physical therapy as you start to get better. I hope you feel better soon. *What to do: *Please continue to take your regular medications as directed. [ x] New medication prescriptions sent to your pharmacy: [ [facility]] [ ] New medication written as a paper prescription [ ] No new medications given *Please follow up with your primary care provider in 2-3 days, call for an appointment. Let them know you were seen in the Emergency Department and that we asked that you be seen for follow-up. We will electronically transmit a record of today's note if your PCP is in our system *If you do not have a primary care provider please contact [phone] to establish care with one of the [facility] primary care providers. *Return to Emergency Department if you should have any new, worsening, or concerning symptoms, such as [fever greater than 101F, chills, worsening pain, persistent vomiting or other bothersome symptoms]. Prescriptions: New methocarbamol 500 mg tablet 500 mg PO Q8H PRN (Reason: muscle spasm) Qty: 20 0RF lidocaine [Lidoderm] 5 % adhesive patch,medicated 1 patch topical DAILY Qty: 15 0RF Rx Instructions: leave on most painful area for up to 12 hrs naproxen 375 mg tablet 375 mg PO Q12H PRN (Reason: pain) Qty: 20 0RF Rx Instructions: take with food and water ondansetron 4 mg tablet,disintegrating 4 mg PO Q8H PRN (Reason: nausea and vomiting) Qty: 10 0RF prednisone 20 mg tablet 20 mg PO DAILY Qty: 4 0RF No Action lamotrigine [Lamictal] 200 MG tablet 200 mg PO QDAY Qty: 0 zolpidem [Ambien] 10 mg tablet See Rx Instructions PO BEDTIME PRN (Reason: insomnia) Label Comments: PO BEDTIME PRN; 1/2 - 1 by mouth as needed for insomnia Rx Instructions: PO BEDTIME PRN; 1/2 - 1 by mouth as needed for insomnia levothyroxine 137 mcg tablet 137 mcg PO QAM Rx Instructions: Managed by Dr. Obrien endocrinology. levothyroxine 150 mcg tablet 150 mcg PO ONCE Rx Instructions: Managed by Dr. Obrien endocrinology tramadol 50 mg tablet 50 mg PO BID PRN (Reason: pain) Qty: 42 1RF quetiapine [Seroquel XR] 400 mg tablet extended release 24 hr 400 mg PO BEDTIME quetiapine [Seroquel] 100 mg tablet 100 mg PO BEDTIME melatonin 3 mg capsule 1.5 mg PO BEDTIME PRN triamcinolone acetonide 0.05 % ointment 1 applictn TOP TID PRN (Reason: perineal rash) Qty: 430 3RF Rx Instructions: Apply to affected area up to three times daily as needed for rash valacyclovir [Valtrex] 1 gram tablet 1,000 mg PO DAILY Qty: 90 0RF triamcinolone acetonide 0.1 % ointment 1 applictn TOP BID PRN (Reason: itching/burning) Qty: 15 2RF Rx Instructions: Apply twice daily for itching/burning quetiapine [Seroquel XR] 50 mg tablet extended release 24 hr 50 mg PO DAILY Qty: 1 0RF Rx Instructions: Take 1 tab as needed for anxiety per psychiatry gabapentin 100 mg capsule 100 mg PO DAILY Qty: 90 2RF Hold Instructions: Home Medication placed on hold at Doctor's office buspirone 10 mg tablet 10 mg PO DAILY lorazepam 0.5 mg tablet 0.5 mg PO BEDTIME Referrals: Joaquín Justice DO [Physician] - Nila Kyle DO [Primary Care Provider] - Yefri Bernstein MD [Non-Staff] - Stand Alone Forms: Patient Portal/API <Maldonado Sprague DO - Last Filed: 07/13/22 19:35> Cosign ED Attending Cosmendozaature Attestation: I was immediately available in the department for consultation. This documentation has been reviewed and I agree with assessment and plan. Supervised by Maldonado Sprague DO
--- NOTE | 2022-07-11 19:14 | DI.RAD.S_ITS ---
PROCEDURE: XR LUMBAR SPINE 2-3V INDICATIONS: fall 6 days ago TECHNIQUE: 3 views of the lumbar spine were acquired. COMPARISON: [facility], CR, XR LUMBAR SPINE MIN 4V, 05/16/2022, 10:17. FINDINGS: Bones: 5 [id number] vertebrae are present. There is unchanged bony alignment. Postsurgical changes are redemonstrated status post posterior fixation and fusion at L3 through L5 with bilateral pedicle screws and posterior fixation rods. Intervertebral spaces are also demonstrated at L3-L4 and L4-5. No definite acute fractures. Specifically, no vertebral body compression fractures. There is multilevel degenerative disc disease including moderate to severe degeneration at L2-L3 and mild degeneration at L5-S1. No suspicious bony lesions. Soft tissues: Overlying bowel gas pattern is normal. No suspicious soft tissue calcifications. IMPRESSION: 1. No acute fracture or subluxation. Dictated by: Alex Jimenes M.D. on 07/11/2022 at 20:02 Approved by: Alex Jimenes M.D. on 07/11/2022 at 20:08
[2022-07-11] MEDS: ACETAMINOPHEN 325 MG TABLET 650 MG PO (19:44)
[2022-07-11] MEDS: KETOROLAC 30 MG/ML VIAL 15 MG IM (19:45)
[2022-07-11] MEDS: predniSONE 20 MG TABLET PO (19:45)
[2022-07-11] MEDS: diazePAM 5 MG TABLET PO (19:45)
[2022-07-11] MEDS: ONDANSETRON 4 MG ODT SL (19:45)
[2022-07-11] MEDS: LIDOCAINE PATCH 1 EACH ADH..PATCH TOP (19:46)
[2022-07-11 20:19] VITALS: BP 146/86; PULSE 78; RESP 16; O2SAT 98
== END 2022-07-11 20:26 | disposition home or self-care (01) ==
PROVIDERS: Emergency Provider Nurse Practitioner Critical Care Medicine; PCP Family Medicine; Referring Provider Internal Medicine
DX: F07.81 Postconcussional syndrome (principal); M54.16 Radiculopathy, lumbar region; S79.911A Unspecified injury of right hip, initial encounter; W18.30XA Fall on same level, unspecified, initial encounter
CPT/HCPCS: 70450; 72100; 72125; 72192; 81003; 96372; 99284; J1885

== ENCOUNTER → 2022-08-08 17:26 | Outpatient (CLI) | payer OTHER, SELFPAY ==
--- NOTE | 2022-08-08 | DI.MG.S_ITS ---
BILATERAL DIGITAL SCREENING MAMMOGRAM 3D/2D WITH CAD: 08/08/2022 CLINICAL: Routine screening. Comparison is made to exams dated: 07/02/2021 mammogram, 04/18/2020 mammogram, and 03/10/2019 mammogram - [facility]. Both breasts are heterogeneously dense, which may obscure small masses (category c / 51-75% glandular tissue). Current study was also evaluated with a Computer Aided Detection (CAD) system. No significant masses, calcifications, or other findings are seen in either breast. There has been no significant interval change. IMPRESSION: NEGATIVE There is no mammographic evidence of malignancy. A 1 year screening mammogram is recommended. Based on the Tyrer Cuzick model (a risk assessment model) the patient's lifetime risk is 8.5% and her 10 year risk is 5.4%. According to the ACR, ACS, and NCCN guidelines, an annual breast MRI exam along with mammogram is recommended if the patient's lifetime risk is 20% or greater. This exam was interpreted at Station ID: [id number]. NOTE: For mammograms, a report in lay terms will be sent to the patient. Approximately 15% of breast malignancies will not be visualized mammographically. In the management of a palpable breast mass, a negative mammogram must not discourage biopsy of a clinically suspicious lesion. Electronically Signed By: Anitha slaughter/nkechi:08/09/2022 10:41:52 letter sent: Normal Exam ACR BI-RADS Category 1: Negative [id number]
== END ==
PROVIDERS: PCP Family Medicine; Referring Provider Nurse Practitioner; Visit Provider Nurse Practitioner
DX: Z12.31 Encounter for screening mammogram for malignant neoplasm of breast (principal)
CPT/HCPCS: 77063; 77067

== ENCOUNTER → 2022-08-14 19:25 | Outpatient (CLI) | payer OTHER, SELFPAY ==
--- NOTE | 2022-08-14 19:31 | DI.MRI.S_ITS ---
PROCEDURE: MR LUMBAR SPINE WO CON INDICATIONS: Right lumbosacral pain status post fusion and fall TECHNIQUE: Noncontrast sagittal T1 spin echo and T2 fast echo, sagittal STIR, axial T1 and T2 fast spin echo through the lumbar spine. Axial and oblique coronal T1 spin echo and STIR through the sacrum. In cases with scoliosis, additional coronal T2 fast spin echo may be performed. COMPARISON: [facility], CT, CT PEL WO CON, 07/11/2022, 17:39. [facility], CT, CT ABDOMEN PELVIS W CON, 09/19/2020, 16:53. [facility], MR, L-SPINE WITHOUT CONTRAST, 08/19/2013, 12:30. [facility], MR, MR LUMBAR SPINE WO/W CON, 08/04/2020, 12:03. FINDINGS: Image quality: Excellent. Alignment and Curvature: Mild degenerative levocurvature, centered at L2-L3, with mild rightward listhesis of L2 on L3 measuring approximately 7 mm. Stable trace anterolisthesis at L2-L3. Remote posterior lateral pilar and pedicle screw fixation at L3 through L5 bilaterally as well as posterior laminectomy at L3-L4 and right hemilaminectomy and partial facetectomy at L4-L5. Bone Marrow: Marrow is of normal overall signal. No acute vertebral body compression fractures. No sacral fractures. Spinal Cord: Conus medullaris terminates at the L1 level. Visualized cord demonstrates normal signal and size. Paraspinous Soft Tissues: No paravertebral masses. T12-L1: Normal appearance. L1-L2: Normal appearance. L2-L3: Slight interval increase in disc height loss with interval increase in disc bulge with development of a very mild superimposed right paracentral disc protrusion. Facet hypertrophy. Ozff-lh-mqedatcc canal stenosis. No significant foraminal stenosis. L3-L4: Posterior decompression. No canal stenosis or foraminal stenosis. L4-L5: No canal stenosis or foraminal stenosis. L5-S1: Bilateral facet hypertrophy. Disc bulge. Interval resolution of a mild left paracentral disc protrusion. It a previously was in close proximity to the left S1 nerve root in the left lateral recess. This superimposed disc protrusion has resolved. No central canal stenosis. Mild left foraminal narrowing. Sacrum: Sacral neural foramina appear normal throughout. Superior to the piriformis muscles, the pre-plexal structures appear normal, including the lumbosacral trunk and S1 root. Just anterior to the piriformis muscles, the sacral plexus proper demonstrates normal morphology (lumbosacral trunk, S1 to S3 nerve roots). Inferior to the piriformis muscles, the sciatic nerves appear normal. IMPRESSION: 1. Slight interval progression at L2-L3. There is now dzoa-gx-unpbevhl canal stenosis. 2. Improvement at L5-S1. Resolution of a left paracentral disc protrusion. Dictated by: Gabriel Figueroa M.D. on 08/15/2022 at 13:46 Approved by: Gabriel Figueroa M.D. on 08/15/2022 at 13:57
== END ==
PROVIDERS: PCP Family Medicine; Referring Provider Physical Medicine & Rehabilitation; Visit Provider Physical Medicine & Rehabilitation
DX: S30.0XXA Contusion of lower back and pelvis, initial encounter (principal); M48.061 Spinal stenosis, lumbar region without neurogenic claudication; M48.07 Spinal stenosis, lumbosacral region; Z98.1 Arthrodesis status
CPT/HCPCS: 72148

== ENCOUNTER 2022-08-27 09:50 | Outpatient (CLI) | payer OTHER, SELFPAY ==
[2022-08-27] VITALS (9 sets, daily range): BP systolic 112–140; BP diastolic 66–91; PULSE 74–89; RESP 13–23; TEMP 36.7; O2SAT 98–99
--- NOTE | 2022-08-27 09:51 | DI.RAD.S_ITS ---
PROCEDURE: PAIN SI JOINT INJECTION INDICATIONS: JOINT DYSFUNCTION COMPARISON: [facility], MR, MR LUMBAR SPINE WO CON, 08/14/2022, 19:41. [facility], CR, XR LUMBAR SPINE MIN 4V, 05/16/2022, 10:17. FINDINGS: On these intraprocedural images, there is a spinal needle seen overlying the inferior aspect of the right sacroiliac joint. Appropriate position of the tip of the needle was confirmed by injection of a small amount of iodinated contrast. IMPRESSION: Successful sacroiliac joint injection. Dictated by: Lopez Olmos M.D. on 08/27/2022 at 12:00 Approved by: Lopez Olmos M.D. on 08/27/2022 at 12:01
[2022-08-27] MEDS: MIDAZOLAM 2 MG/2 ML VIAL IV (11:27)
[2022-08-27] MEDS: BUPIVACAINE 0.5% (PF) 30 ML VIAL INJ (11:31)
[2022-08-27] MEDS: BETAMETHASONE 30 MG/5 ML MDV 12 MG INJ (11:31)
[2022-08-27] MEDS: IOPAMIDOL 15 ML VIAL 3 ML INJ (11:32)
--- NOTE | 2022-08-27 11:40 | PM.PROC.IR.1 ---
Date/Time/Diagnoses Date of procedure: 08/27/22 Time of procedure: 11:40 Pre-procedure diagnosis: Sacroiliac joint pain/DJD Post-procedure diagnosis: same Procedure Notes Procedure: Fluoroscopically guided contrast controlled right sacroiliac joint injection Indications: Sugar is referred by Dr. Kyle for treatment of right sacroiliac joint DJD Physician: Joaquín Justice Total Fluoroscopy time (seconds): 6 Total sedation minutes: 8 Complications: none Procedure in detail & Post-procedure care: DESCRIPTION OF PROCEDURE Fluoroscopically guided, contrast controlled right sacroiliac joint injection Following review of allergies and review of potential side effects and complications, including, but not necessarily limited to, infection, allergic reaction, local tissue breakdown, temporary as well as permanent nerve injury, paralysis, stroke and possible , the patient indicated that they understood and agreed to proceed. An informed consent was signed by the patient, witnessed by a nurse, and placed in the patient's chart. Additionally, other treatment options including modalities, medications, and physical therapy were reviewed with the patient. After review of previous anaesthesic history and IV conscious sedation the patient was deemed safe to proceed with today?s procedure with IV conscious sedation as ASA class II designation. Safety time-out was performed to confirm patient ID, procedure to be performed and site of procedure. IV sedation was accomplished with a combination of 2mg of Versed was administered by the RN after DO order, titrated to patient comfort during the course of the procedure while the patient remained responsive to all verbal commands In the prone position following sterile prep and drape of the pelvic region, the hyper lucency on in the inferior aspect of the sacroiliac joint was identified fluoroscopically the skin was anesthetized be a 25 gauge 1 eventual with approximately 2 cc of 1% lidocaine solution. At this point, a 22 gauge 3 in spinal needle was atraumatically introduced and advanced under fluoroscopic guidance into the inferior aspect of the right sacroiliac joint. Following negative aspiration, approximately 0.3cc of Isovue-300 was injected confirming intra-articular placement without vascular uptake. Radiographic data, including multiple fluoroscopic views of the pelvis, reveals a spinal needle in the sacroiliac joint hyper lucent zone. Subsequent view show flow contrast tear superiorly and inferiorly within the joint capsule without vascular intrathecal uptake. At this point a total of 1cc of 0.5% Marcaine was combined with 1cc of 6 mg of betamethasone was injected without incident. The procedure tolerated the procedure well without signs or symptoms of complications prior to transfer to the recovery area continued monitoring without incident. The patient was then transferred to the recovery area with a bur observed for an appropriate time after the injection. The patient reverted a vas score of 7 prior to the procedure and post-procedure vas of 1. POSTOP INSTRUCTIONS The patient was provided with a pain like to continue to record the patient's response to the target specific procedure prior to the patient's follow-up visit with the referring physician. Additionally, specific post injection care instructions and a contact number to our office were provided if concerns arise regarding the possible complications associated with procedure are suspected.
== END 2022-08-27 12:04 | disposition home or self-care (01) ==
LOC: RAD 09:50
PROVIDERS: PCP Family Medicine; Referring Provider Physical Medicine & Rehabilitation; Visit Provider Physical Medicine & Rehabilitation
DX: M53.3 Sacrococcygeal disorders, not elsewhere classified (principal); M46.1 Sacroiliitis, not elsewhere classified
CPT/HCPCS: 27096; J0702; J2250

== ENCOUNTER → 2022-09-03 17:30 | Outpatient (CLI) | payer OTHER, SELFPAY | PROVIDERS: PCP Family Medicine; Visit Provider Physician Assistant | DX: N39.0 Urinary tract infection, site not specified (principal) | CPT/HCPCS: 87086 ==

== ENCOUNTER → 2022-09-18 16:35 | Outpatient (CLI) | payer OTHER, SELFPAY | PROVIDERS: PCP Family Medicine; Visit Provider Nurse Practitioner Family | DX: R30.0 Dysuria (principal) | CPT/HCPCS: 87086 ==

== ENCOUNTER → 2022-11-06 06:56 | Outpatient (CLI) | payer OTHER, SELFPAY ==
[2022-11-06 09:25] LABS: Hematocrit 40.6 % (36-46); Hemoglobin 13.5 g/dL (12.0-16.0); Mean Corpuscular HGB Conc 33.2 % (30-36); Mean Corpuscular Hemoglobin 30.2 PG (26-34); Mean Corpuscular Volume 90.8 fL (80-100); Platelet Count 288 X10^3/uL (150-400); Red Blood Cell Count 4.47 X10^6/uL (4.0-5.2); Red Cell Distribution Width 13.5 % (11.6-14.8); White Blood Cell Count 4.3 X10^3/uL (4.5-11.0)
[2022-11-06 09:54] LABS: Alanine Aminotransferase 26 IU/L (<35); Albumin 4.3 g/dL (3.5-5.0); Albumin Globulin Ratio 1.7 (1.0-2.8); Alkaline Phosphatase 99 U/L (38-126); Aspartate Aminotransferase 29 IU/L (14-36); BUN Creatinine Ratio 18.6 (6-22); Bilirubin Total 0.2 mg/dL (0.2-1.3); Blood Urea Nitrogen 18 mg/dL (7-17); Calcium 9.1 mg/dL (8.4-10.2); Carbon Dioxide 25 mmol/L (22-32); Chloride 107 mmol/L (98-107); Cholesterol 267 mg/dL (140-199); Estimated Glomerular Filt Rate > 60 mL/min (>60); Globulin 2.5 g/dL (1.7-4.1); Glucose 93 mg/dL (80-110); HDL Cholesterol 64 mg/dL (40-60); HEMOLYSIS < 15 (0-50); LDL Cholesterol Calculated 171 mg/dL (<100); Potassium 4.2 mmol/L (3.4-5.1); Sodium 140 mmol/L (137-145); Total Protein 6.8 g/dL (6.3-8.2); Triglycerides 159 mg/dL (35-150)
[2022-11-06 09:57] LABS: High Sensitivity CRP - Cardiac 1.4 mg/L (1.0-3.0)
== END ==
PROVIDERS: PCP Family Medicine; Referring Provider Family Medicine; Visit Provider Family Medicine
DX: E03.9 Hypothyroidism, unspecified (principal); E78.5 Hyperlipidemia, unspecified; N95.2 Postmenopausal atrophic vaginitis
CPT/HCPCS: 36415; 80053; 80061; 85027; 86140

== ENCOUNTER → 2023-05-06 18:43 | Outpatient (CLI) | payer OTHER, SELFPAY ==
--- NOTE | 2023-05-06 | DI.MRI.S_ITS ---
PROCEDURE: MR KNEE LT WO CON INDICATIONS: Pain in left knee TECHNIQUE: Noncontrast sagittal PD fast spin echo and T2 fast spin echo with fat saturation, sagittal 3-D FLASH with fat saturation; coronal T1 spin echo and PD fast spin echo with fat saturation, and axial PD fast spin echo with fat saturation through the knee. COMPARISON: [facility], MR, MR KNEE LT WO CON, 05/22/2022, 17:22. FINDINGS: Image quality: Diagnostic. Susceptibility artifacts from knee prosthesis are seen. Cruciate ligaments: The anterior and posterior cruciate ligaments are not well visualized. No abnormal anterior tibial translation is seen to suggest ACL rupture. Medial structures: The medial collateral ligament appears mildly thickened at its femoral insertion. Visualized portions of the pes anserinus tendons appear normal. No abnormal bursal fluid. Lateral structures: The lateral collateral ligament, long and short heads of the biceps femoris tendon appear intact. The popliteus tendon appears normal Iliotibial band appears normal. Anterior structures: The quadriceps and patellar tendons appear intact. Patellar alignment is normal. No femoral trochlear dysplasia or ventral trochlear prominence. No edema in the infrapatellar fat pad. Bones and cartilage: Patient is status post left total knee arthroplasty with susceptibility artifact seen. No gross marrow edema. No acute fracture or dislocation. Joint space: There is small knee joint fluid. There is a popliteal cyst measures up to 2.4 x 2.1 x 4.9 cm in size. Normal appearing synovial plicae are incidentally noted. IMPRESSION: 1. Patient is status post interval left total knee arthroplasty with anatomic left knee alignment. No gross marrow edema. No evidence of periprosthetic fracture or dislocation. Small joint effusion and a Olmos's cyst as above. No gross loose bodies. 2. Cruciate ligaments are not well seen on this study due to susceptibility artifacts. No abnormal anterior tibial translation is seen to suggest full-thickness ACL rupture. 3. Low-grade proximal MCL sprain. Dictated by: Ghulam Alvarado M.D. on 05/07/2023 at 11:29 Approved by: Ghulam Alvarado M.D. on 05/07/2023 at 11:32
== END ==
PROVIDERS: Family Provider Family Medicine; PCP Family Medicine; Referring Provider Student in an Organized Health Care Education/Training Program; Visit Provider Student in an Organized Health Care Education/Training Program
DX: S83.412A Sprain of medial collateral ligament of left knee, initial encounter (principal); M25.462 Effusion, left knee; M25.562 Pain in left knee; M71.22 Synovial cyst of popliteal space [Baker], left knee; Z96.652 Presence of left artificial knee joint
CPT/HCPCS: 73721

== ENCOUNTER 2023-06-13 21:42 | Emergency (ER) | payer OTHER, SELFPAY ==
--- NOTE | 2023-06-13 21:53 | DI.RAD.S_ITS ---
PROCEDURE: XR KUB INDICATIONS: constipation TECHNIQUE: One view of the abdomen acquired. COMPARISON: None. FINDINGS: Surgical changes and devices: None. Bowel: Bowel gas pattern is normal. There is a large amount of stool in colon. Soft tissues: No suspicious abdominal calcifications. Visualized solid organ contours appear normal in size. Bones: No suspicious bony lesions. Degenerative and postsurgical changes in lumbar spine. IMPRESSION: A large amount of stool in colon. Dictated by: Amol Cary M.D. on 06/13/2023 at 22:19 Approved by: Amol Cary M.D. on 06/13/2023 at 22:20
[2023-06-13 21:54] VITALS: BP 148/84; PULSE 91; RESP 12; TEMP 37.1; O2SAT 94; BMI 25.1
[2023-06-13 22:31] VITALS: BP 143/61; PULSE 90; O2SAT 95
--- NOTE | 2023-06-13 22:37 | ED_ITS ---
HPI - Back Pain/Injury General Chief Complaint: Back Pain/Injury Stated Complaint: poss bowel blockage Time Seen by Provider: 06/13/23 21:50 Source: patient History of Present Illness HPI Narrative: 73-year-old female presents for constipation for 4 days. States that she takes Seroquel nightly for sleep which does cause constipation. Tonight she took milk of magnesia, senna, and tried to manually disimpact herself, however it did not work and she was concerned that there may be a bowel blockage. Last bowel movement 5 days ago. Has not tried any laxatives prior to tonight. Related Data Home Medications Medication Instructions Recorded Confirmed lamotrigine 200 mg tablet 200 mg PO QDAY ##0 04/16/11 03/31/23 (Lamictal) zolpidem 10 mg tablet (Ambien) See Rx Instructions PO BEDTIME PRN 12/08/18 03/31/23 insomnia melatonin 3 mg capsule 1.5 mg PO BEDTIME PRN 03/17/19 03/31/23 quetiapine 100 mg tablet (Seroquel) 100 mg PO BEDTIME 03/17/19 03/31/23 quetiapine 400 mg tablet,extended 400 mg PO BEDTIME 03/17/19 03/31/23 release 24 hr (Seroquel XR) levothyroxine 137 mcg tablet 137 mcg PO QAM 02/27/21 03/31/23 levothyroxine 150 mcg tablet 150 mcg PO ONCE 05/17/22 03/31/23 buspirone 10 mg tablet 10 mg PO DAILY 05/27/22 03/31/23 lorazepam 0.5 mg tablet 0.5 mg PO BEDTIME 05/27/22 03/31/23 Previous Rx's Medication Instructions Recorded triamcinolone acetonide 0.05 % 1 applictn topical TID PRN 03/17/19 topical ointment perineal rash #430 grams triamcinolone acetonide 0.1 % 1 applictn topical BID PRN 07/21/19 topical ointment itching/burning #15 grams valacyclovir 1 gram tablet 1,000 mg PO DAILY #90 tabs 05/17/22 (Valtrex) phenazopyridine 200 mg tablet 200 mg PO TID PRN pain 6 doses #6 09/03/22 (Pyridium) tabs coenzyme Q10 150 mg capsule 150 mg PO DAILY #90 caps 11/11/22 estradiol 0.01% (0.1 mg/gram) 1 g vaginal DAILY Vaginal atrophy 01/17/23 vaginal cream #42.5 grams rosuvastatin 10 mg tablet 10 mg PO DAILY #30 tabs 02/19/23 celecoxib 200 mg capsule (Celebrex) 200 mg PO DAILY #30 caps 03/31/23 gabapentin 300 mg capsule 300 mg PO .COMPLEX #90 caps 03/31/23 Allergies Allergy/AdvReac Type Severity Reaction Status Date / Time tramadol Allergy Intermediate Nausea Verified 03/31/23 13:28 lovastatin [LOVASTATIN] AdvReac Intermediate Nightmare Verified 03/31/23 13:28 Opioids - Morphine Analogues AdvReac Intermediate NAUSEA AND Verified 03/31/23 13:28 [OPIOIDS - MORPHINE CONFUSION ANALOGUES] Review of Systems Review of Systems Narrative: Negative except as marked Patient History Medical History Right foot drop Sacral contusion Iron deficiency anemia, unspecified (04/16/11) Osteophyte of cervical spine Anterolisthesis of cervical spine Facet arthropathy, multilevel Cervical spine degeneration Left knee DJD Facet arthropathy, lumbar Fracture of right patella Chronic low back pain Osteoporosis with fracture Decreased range of motion of right lower extremity Right hamstring injury Right buttock pain Fall from ground level Piriformis syndrome of right side Bladder spasms Contact dermatitis Itchy skin of anus and genitals Genital herpes Osteopenia Chronic pain Gait instability Right hip impingement syndrome Lumbar post-laminectomy syndrome Femoral acetabular impingement Menopause Hyperlipidemia Hay fever (~1979) Post traumatic stress disorder (PTSD) (~2007) Depression (~1967) Bipolar 1 disorder (~1969) Anxiety (~1999) Chronic headaches (~2013) Measles Chicken pox Gastroparesis (~1989) Osteoarthritis Shoulder pain Lumbar spine pain Chronic back pain (~2009) Skin problem (~2013) Psoriasis Thyroid nodule (~1996) Hypothyroidism (~1996) Hyperthyroidism Neck pain (02/26/16) 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) Laceration of scalp Surgical History History of total right knee replacement Personal history of prior ablation treatment Status post lumbar spinal fusion Anesthesia H/O shoulder surgery (~2004) History of spinal fusion (07/07/14) History of thyroidectomy History of cystoscopy Status post delivery Status post tonsillectomy and adenoidectomy Family History Grandmother Bipolar disorder Mother Bipolar disorder Alzheimer's dementia Social History marital status: household members: spouse pets and animals: Yes education level: college occupational status: other joshua/taoist: Other travel history: other leisure activities: other other: Walking, hiking, Pilates, Esther, writing seatbelt use: always water heater temp set < 120 deg: Yes working smoke detector in home: Yes fire extinguisher in home: Yes carbon monox detector in home: Yes firearms in home: No Smoking Status: Former smoker alcohol intake: current substance use type: does not use well-balanced diet: daily or most days caffeine: Yes eating out: other frequency: daily duration: 45-60 minutes/day Smoking Status: Former smoker alcohol intake frequency: holidays/special occasions only Substance Use Type: does not use Exam Initial Vital Signs Initial Vital Signs: Vital Signs Temperature 98.7 F 06/13/23 21:54 Pulse Rate 91 H 06/13/23 21:54 Respiratory Rate 12 06/13/23 21:54 Blood Pressure 148/84 H 06/13/23 21:54 Pulse Oximetry 94 06/13/23 21:54 Oxygen Delivery Method Room Air 06/13/23 21:54 Const: Awake, alert, no acute distress, nontoxic appearing Cardiac: regular rate, regular rhythm RESP: unlabored, clear bilaterally, no wheezing GI: Atraumatic, soft, generalized tenderness to deep palpation Skin: Warm, Dry, intact, no rashes Neuro: AO x3, CN II-XII grossly intact, moves all extremities Psych: affect normal, mood normal, not suicidal, not homicidal Course Orders Ordered: ED Orders 06/13/23 21:53 XR KUB Stat Discontinued Medications Mineral Oil (Mineral Oil 1 Each Enema) 1 each AK NOW ONE Stop: 06/13/23 22:39 Last Admin: 06/13/23 22:42 Dose: 1 each Documented By: SB Polyethylene Glycol/Electrolytes ([id number]/Sod Sulf,Bicarb,Cl/Kcl 4,000 Ml Solution) 4,000 ml PO NOW ONE Stop: 06/14/23 00:00 Last Admin: 06/14/23 00:15 Dose: 4,000 ml Documented By: SHAWN Sodium Biphosphate/Sodium Phosphate (Fleets Enema) 1 each AK NOW ONE Stop: 06/13/23 22:39 Last Admin: 06/13/23 22:42 Dose: 1 each Documented By: SHAWN Vital Signs Vital signs: Vital Signs - 8 hr 06/13/23 21:54 06/13/23 22:31 Temperature 98.7 F Pulse Rate 91 H 90 Respiratory Rate 12 Blood Pressure 148/84 H 143/61 H Pulse Oximetry 94 95 Oxygen Delivery Method Room Air MDM - Back Pain/Injury Differential Diagnosis Differential diagnosis: Likely sciatica, strain of lumbar region and other (constipation) MDM Narrative Medical decision making narrative: Constipation and generalized abdominal discomfort. Last colonoscopy in 2018, no polyps or masses found, plan was for colonoscopy 10 years in future. Patient has been seen in the past for constipation with similar presentation. Attempted enemas without success. I offered to manually disimpact the patient or offered to have patient go home with heavy laxatives. Patient elected to go home with [employer]. She will return if she is unable to have a bowel movement at home. I counseled the patient that she should incorporate daily MiraLax to prevent episodes of constipation such as this in the future. Discharge Plan Departure Patient Disposition: Home Clinical Impression: Constipation Instructions: DI for Constipation Activity Restrictions/Additional Instructions: Even after he had a bowel movement at home I highly recommend incorporating daily MiraLax to your medication regimen. This will help keep your stool soft and prevent constipation. Prescriptions: No Action phenazopyridine [Pyridium] 200 mg tablet 200 mg PO TID PRN (Reason: pain) Qty: 6 0RF lamotrigine [Lamictal] 200 MG tablet 200 mg PO QDAY Qty: 0 zolpidem [Ambien] 10 mg tablet See Rx Instructions PO BEDTIME PRN (Reason: insomnia) Patient Comments: PO BEDTIME PRN; 1/2 - 1 by mouth as needed for insomnia Rx Instructions: PO BEDTIME PRN; 1/2 - 1 by mouth as needed for insomnia levothyroxine 137 mcg tablet 137 mcg PO QAM Rx Instructions: Managed by Dr. Obrien endocrinology. levothyroxine 150 mcg tablet 150 mcg PO ONCE Rx Instructions: Managed by Dr. Obrien endocrinology coenzyme Q10 150 mg capsule 150 mg PO DAILY Qty: 90 0RF rosuvastatin 10 mg tablet 10 mg PO DAILY Qty: 30 1RF quetiapine [Seroquel XR] 400 mg tablet extended release 24 hr 400 mg PO BEDTIME quetiapine [Seroquel] 100 mg tablet 100 mg PO BEDTIME melatonin 3 mg capsule 1.5 mg PO BEDTIME PRN triamcinolone acetonide 0.05 % ointment 1 applictn TOP TID PRN (Reason: perineal rash) Qty: 430 3RF Rx Instructions: Apply to affected area up to three times daily as needed for rash valacyclovir [Valtrex] 1 gram tablet 1,000 mg PO DAILY Qty: 90 0RF estradiol 0.01 % (0.1 mg/gram) cream 1 g vaginal DAILY Qty: 42.5 3RF triamcinolone acetonide 0.1 % ointment 1 applictn TOP BID PRN (Reason: itching/burning) Qty: 15 2RF Rx Instructions: Apply twice daily for itching/burning buspirone 10 mg tablet 10 mg PO DAILY lorazepam 0.5 mg tablet 0.5 mg PO BEDTIME gabapentin 300 mg capsule 300 mg PO .COMPLEX Qty: 90 2RF Rx Instructions: 1-2 PO Tid to begin at HS and titrate to pain relief celecoxib [Celebrex] 200 mg capsule 200 mg PO DAILY Qty: 30 2RF Referrals: Nila Kyle DO [Primary Care Provider] - Stand Alone Forms: Patient Portal/API
[2023-06-13] MEDS: MINERAL OIL 1 EACH ENEMA PR (22:42)
[2023-06-13] MEDS: FLEETS ENEMA 1 EACH PR (22:42)
--- NOTE | 2023-06-13 23:34 | PC.NURSE ---
Both enemas were ineffective even with pt laying on bd on left side. Pt was unable to hold the liquid in. MD jarrell.
[2023-06-14] MEDS: PEG3350/SOD SULF,BICARB,CL/KCL 4,000 ML SOLUTION 4000 ML PO (00:15)
== END 2023-06-14 00:21 | disposition home or self-care (01) ==
PROVIDERS: Emergency Provider Emergency Medicine; Family Provider Family Medicine; PCP Family Medicine
DX: K59.00 Constipation, unspecified (principal)
CPT/HCPCS: 74018; 99283

== ENCOUNTER → 2023-08-25 16:03 | Outpatient (CLI) | payer OTHER, SELFPAY ==
--- NOTE | 2023-08-25 | DI.MG.S_ITS ---
BILATERAL DIGITAL SCREENING MAMMOGRAM 3D/2D WITH CAD: 08/25/2023 CLINICAL: Routine screening. Comparison is made to exams dated: 08/08/2022 mammogram, 07/02/2021 mammogram, and 04/18/2020 mammogram - [facility]. Both breasts are heterogeneously dense, which may obscure small masses (category c / 51-75% glandular tissue). Current study was also evaluated with a Computer Aided Detection (CAD) system. No significant masses, calcifications, or other findings are seen in either breast. There has been no significant interval change. IMPRESSION: NEGATIVE There is no mammographic evidence of malignancy. A 1 year screening mammogram is recommended. Based on the Tyrer Cuzick model (a risk assessment model) the patient's lifetime risk is 8.1% and her 10 year risk is 5.6%. According to the ACR, ACS, and NCCN guidelines, an annual breast MRI exam along with mammogram is recommended if the patient's lifetime risk is 20% or greater. This exam was interpreted at Station ID: [id number]. NOTE: For mammograms, a report in lay terms will be sent to the patient. Approximately 15% of breast malignancies will not be visualized mammographically. In the management of a palpable breast mass, a negative mammogram must not discourage biopsy of a clinically suspicious lesion. Electronically Signed By: Anitha slaughter/nkechi:08/26/2023 12:39:50 letter sent: Normal Exam ACR BI-RADS Category 1: Negative [id number]
== END ==
LOC: MAMMO 16:03
PROVIDERS: Family Provider Family Medicine; PCP Family Medicine; Referring Provider Family Medicine; Visit Provider Family Medicine
DX: Z12.31 Encounter for screening mammogram for malignant neoplasm of breast (principal); R92.333 Mammographic heterogeneous density, bilateral breasts
CPT/HCPCS: 77063; 77067

== ENCOUNTER 2023-09-15 09:45 | Outpatient (RCR) | payer OTHER, SELFPAY ==
--- NOTE | 2023-07-15 16:33 | PT.OPPOC ---
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) Pain in right knee (07/15/23) Pain in left knee (07/15/23) Other spondylosis with radiculopathy, lumbosacral region (07/15/23) Spondylosis without myelopathy or radiculopathy, lumbar region (07/15/23) Spinal stenosis, lumbar region without neurogenic claudication (07/15/23) Muscle weakness (generalized) (07/15/23) Difficulty in walking, not elsewhere classified (07/15/23) Abnormal posture (07/15/23) Strain of muscle, fascia and tendon of lower back, initial encounter (07/15/23) Arthrodesis status (07/15/23) Visit Care Team Role Provider Type Barney Martínez MD Referring Provider Non-Staff Specialty: Orthopedic Surgery Address: [address] [place] [address] , [place], [address] Fax: Email: Nila Kyle DO Family Provider Physician Primary Care Provider Specialty: Medical Address: [address] [place] [address], [address], [place], [address] Email: [email or web address] Zabrina Hawthorne PA-C Attending Provider Advanced Fashion Patternmaker Specialty: Orthopedics Orthopedic Surgery Address: [address] [place] [address], [id number] Email: [email or web address] Plan Of Care PT-OP-T Assessment and Plan Start: 07/10/23 15:50 Freq: Status: Active Protocol: Document 07/15/23 13:49 [facility] (Rec: 07/15/23 14:33 [facility] [id number]) Physical Therapy Assessment Rehab Potential Rehabilitation Potential Good Evaluation Complexity Number of Personal Factors/Comorbidities 3 or More Number of Body Systems Impaired 4 or More Clinical Presentation at Evaluation Evolving Impairments Impairments Activity Tolerance,Balance, Functional Activities, Functional Mobility,Gait,Pain, Posture,ROM,Soft Tissue Mobility,Strength Goals posture Malariologist Goal (LTG) Pt will score at least 4/5 on VCT to show improved postural stability to allow inc standing/sitting time LTG Duration 10/07 strength Short Term Goal (STG) Pt will be indep w/HEP STG Duration 08/28/23 [facility] Goal (LTG) Pt will score at least 3/5 on LPM and at least 4+/5 on B LE MMT to show improved strength to allow pt to do more active activities w/o inc pain LTG Duration 10/09/23 activity Short Term Goal (STG) Pt will be able to start gentle yoga activities w/o inc back pain. STG Duration 08/31 Malariologist Goal (LTG) Pt will be able to hike more hills and inc distance to up to 4 miles occasionally w/o significant inc in back pain LTG Duration 10/08/23 ISA Impairment 21/50 Short Term Goal (STG) Pt will improve ISA score to no greater than 15/50 to show improved functional mobility. STG Duration 08/29/23 Malariologist Goal (LTG) Pt will improve ISA score to no greater than 8/50 to show improved functional mobility. LTG Duration 10/08/23 Assessment Summary Assessment Pt presents w/LBP w/focus at R SI and occa R hip pain that is chronic with pt history of fusion of L3-5 and guillian [place] diagnosis that limited recovery from surgery. She has done PT in the past and also has recent history of TKA L( november) w/o full recovery and R ( a few years ago) but w/ patellar fracture. D/t this, she is unable to squat and adjusts her gait and likely has inc discomfort in her back d/t her limited knee mobility and stability along w/pain and willr equire treatmetn of knees in order to help back. Pt unable to squat further than 20 deg d/t this pain. She has significantly restricted lumbar motion w/innominate dysfunctiona nd hip restriction taht is likely contributing to pain. Pt would benefit from skilled PT to address this and improve her functional capacity. Physical Therapy Plan Frequency and Duration Frequency of Treatment 1-2x/wk Duration of treatment (weeks) 12 Plan of Care Start Date 07/15/23 Plan of Care End Date 10/08/23 Therapeutic Interventions Therapeutic Interventions Balance Training,Coordination Training,Gait Training,Home Exercise Program,Joint Mobilizations,Manual Therapy, Neuromuscular Re-education, Orthotic/Prosthetic Management ,Patient/Caregiver Education, Self-Care/Home Management,Soft Tissue Mobilization,Taping, Therapeutic Activities, Therapeutic Exercises Modalities Cold Pack/Ice Massage,Electric Stimulation,Hot Packs, Infrared Therapy,Ultrasound Next Visit Focus/Plan Next Note Type Treatment Note Next Visit Plan BLE MMT (hips, knees, ankles) manual to B hips and innominate Gentle hip stretching and yoga stretches, start gentle core work-maintain painfree Plan of Care Dates Plan of Care Start Date 07/15/23 Plan of Care End Date 10/08/23 Electronically Signed by: Margaret Fishman, PT 07/16/23 1846 If you are in agreement with this Plan of Care, please return a signed and dated copy. I have reviewed this Plan of Care and certify that the skilled therapy services above are required to meet the patient?s needs. Physician Signature Date Printed Name and Credentials Clinical Instructor Signature Printed Name and Credentials
--- NOTE | 2023-07-15 16:33 | PT.OIE ---
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) Pain in right knee (07/15/23) Pain in left knee (07/15/23) Other spondylosis with radiculopathy, lumbosacral region (07/15/23) Spondylosis without myelopathy or radiculopathy, lumbar region (07/15/23) Spinal stenosis, lumbar region without neurogenic claudication (07/15/23) Muscle weakness (generalized) (07/15/23) Difficulty in walking, not elsewhere classified (07/15/23) Abnormal posture (07/15/23) Strain of muscle, fascia and tendon of lower back, initial encounter (07/15/23) Arthrodesis status (07/15/23) Past Medical History (Last Reviewed 06/14/23 @ 04:29 by Ann Caraballo MD) Anterolisthesis of cervical spine Anxiety (~1999) Bipolar 1 disorder (~1969) Bladder spasms Cervical spine degeneration Chicken pox Chronic back pain (~2009) Chronic headaches (~2013) Chronic low back pain Chronic pain Contact dermatitis Decreased range of motion of right lower extremity Depression (~1967) Facet arthropathy, lumbar Facet arthropathy, multilevel Fall from ground level Femoral acetabular impingement Fracture of right patella Gait instability Gastroparesis (~1989) Genital herpes Hay fever (~1979) 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) Hyperlipidemia Hyperthyroidism Hypothyroidism (~1996) Iron deficiency anemia, unspecified (04/16/11) Itchy skin of anus and genitals Laceration of scalp Left knee DJD Lumbar post-laminectomy syndrome Lumbar spine pain Measles Menopause Neck pain (02/26/16) Osteoarthritis Osteopenia Osteophyte of cervical spine Osteoporosis with fracture Piriformis syndrome of right side Post traumatic stress disorder (PTSD) (~2007) Psoriasis Right buttock pain Right foot drop Right hamstring injury Right hip impingement syndrome Sacral contusion Shoulder pain Skin problem (~2013) Thyroid nodule (~1996) Past Surgical History (Last Reviewed 06/14/23 @ 04:29 by Ann Caraballo MD) Anesthesia H/O shoulder surgery (~2004) History of cystoscopy History of spinal fusion (07/07/14) History of thyroidectomy History of total right knee replacement Personal history of prior ablation treatment Status post delivery Status post lumbar spinal fusion Status post tonsillectomy and adenoidectomy Visit Care Team Role Provider Type Barney Martínez MD Referring Provider Non-Staff Specialty: Orthopedic Surgery Address: [address] [facility] , [place], [address] Fax: Email: Nila Kyle DO Family Provider Physician Primary Care Provider Specialty: Medical Address: [address] [place] [address], [address], [place], [address] Email: [email or web address] Zabrina Hawthorne PA-C Attending Provider Advanced Workforce Development Assistant Specialty: Orthopedics Orthopedic Surgery Address: [address] [facility], [place], [address] Email: [email or web address] Physical Therapy Initial Evaluation PT-OP-A Visit Information Start: 07/10/23 15:50 Freq: Status: Active Protocol: Document 07/15/23 13:49 [facility] (Rec: 07/15/23 14:33 [facility] [id number]) Out-Patient Physical Therapy Visit Information Visit Information Visit Type Initial Evaluation Visit Note 05/28 Visit Start Time 13:51 Visit Stop Time 14:31 Visit Number 1 Number of CAP SIZER Visits 0 PT-OP-B Current Condition Start: 07/10/23 15:50 Freq: Status: Active Protocol: Document 07/15/23 13:49 [facility] (Rec: 07/15/23 14:33 [facility] [id number]) Current Condition History of Current Condition Current Complaints LBP, B knee pain, neuropath History of Current Condition Pt reports in 2016, she had back surgery (L3-5 fusion) and after got guilliane [place] and took a long time to dx it. She had drop foot but it is better. Has neuropathy in BLEs . Pt has been trouble getting rid of back pain. She saw Dr. Justice a lot. She saw a PA ortho recently and thought possibly one screw is tipped up. Midback pain is newer and not as bad but still painful. PA gave her meloxicam, mm relaxor and a pack of prednisone. She didn't take them d/t them being about to go away. MM relaxor and meloxicam made her nauseaus. Tylenol and ibuprofen do not help back. Heat helps mroe than ice. Has been given gabapentin but it hasn't worked before. Pain currently intefering at night. Uses a pillow btwn knees. Pt has hx of B TKA and R one the patella fx possibly d/t quad tendn or could have been a pin too long. L TKA was done in November but knee was not resurfaced, so still has pain. R TKA was done about 3.5 years ago. Walks 1-3 miles w/dog in AM and does have pain after. She was reluctant to go back to PT because she had an incident w /inc pain after to do 50 bridges. She used to be extremely active. She knows she let her core go. Neuropathy affects her mostly in bottom of feet and into lower legs. It can be the worst at night. Pt back pain was off/on for several years prior to getting the point of needing surgery. She has been seeing a chiro who does trudy technique in [facility] and that has helped her neck a lot. It hasn't helped her back. Treatment Goals Patient/Caregiver Goals Be in less pain and be more mobile, Be able to do yoga, be able to hike more hills and hike longer (get up to 4 miles ), garden/yard work PT-OP-C Subjective Start: 07/10/23 15:50 Freq: Status: Active Protocol: Document 07/15/23 13:49 [facility] (Rec: 07/15/23 14:33 [facility] [id number]) Patient Questionnaires Oswestry Low Back Index Oswestry Score 21/50;42% OP-PT Pain Assessment Location Back pain Pain Location Details R SI region to all the way cross the back Scale Used best:4 worst:8 Description Aching,Sharp Frequency Constant Radiating Location occ to R buttocks, lat hip and ant hip Variations/Patterns R>L HS feeling tight Pain Aggravating Factors Standing,Sitting Other Pain Aggravating Factors laying down, pain @ night, first thing in AM, pain after walk Pain Alleviating Factors Cold,Heat Other Pain Alleviating Factors walking in AM PT-OP-D Balance Start: 07/10/23 15:50 Freq: Status: Active Protocol: Document 07/15/23 13:49 [facility] (Rec: 07/15/23 14:33 [facility] [id number]) Balance Tests Single Limb Standing Single Limb- Right 12 sec Single Limb- Left 12 sec PT-OP-F Manual Assessment Start: 07/10/23 15:50 Freq: Status: Active Protocol: Document 07/15/23 13:49 [facility] (Rec: 07/15/23 14:33 [facility] [id number]) Manual Assessments Joint Mobility Assessment Joint Mobility Assessment R iliac crest higher, equal greater trochanters Other Manual Assessments Other Manual Assessments Pt can only squat about 20 deg and painful at that PT-OP-G Mobility & Gait Start: 07/10/23 15:50 Freq: Status: Active Protocol: Document 07/15/23 13:49 [facility] (Rec: 07/15/23 14:33 [facility] [id number]) OP Gait Assessment Comments Gait Comments dec push off B , leans R slightly, dec RLE stance time, add B PT-OP-J Posture/Palpation/Skin Start: 07/10/23 15:50 Freq: Status: Active Protocol: Document 07/15/23 13:49 [facility] (Rec: 07/15/23 14:33 [facility] [id number]) Posture Evaluation Marie Postural Classification System Marie Postural Classifications Posterior/Posterior Vertebral Compression Test 0 Lumbar Protective Mechanism Left AP 0 Lumbar Protective Mechanism Right AP 0 Lumbar Protective Mechanism Left PA 0 Comments Posture Comments R pelvic shear, rot L, supinated R foot, IR L femur, B knee valgus PT-OP-K Range of Motion Start: 07/10/23 15:50 Freq: Status: Active Protocol: Document 07/15/23 13:49 [facility] (Rec: 07/15/23 14:33 [facility] [id number]) Lumbar Spine Range of Motion Lumbar Spine Active Percentage Flexion 20 Extension 30 Rotation Left 30 Rotation Right 30 Lateral Flexion Left 50 Lateral Flexion Right 50 PT-OP-L Special Tests Start: 07/10/23 15:50 Freq: Status: Active Protocol: Document 07/15/23 13:49 [facility] (Rec: 07/15/23 14:33 [facility] [id number]) Special Tests Lumbar Spine Special Tests Slump Test Results neg for back pain, inc tension on L PT-OP-Q Treatments Start: 07/10/23 15:50 Freq: Status: Active Protocol: Document 07/15/23 13:49 [facility] (Rec: 07/16/23 10:21 [facility] [id number]) Self-Care/Home Management Treatment Education Other Education 9 min; Discussion of SIJ dysfunction and how this may be contributing to her pain and posture and gait strategies; edu on anatomy of cluneal nerves and how these can contribute to lat pain. Discussed how pt lacking knee mobility is also affecting her back and that it will be important to imrpove LE motiona nd mobility in order to allow improved mechanics w/ typical activities like bending over PT-OP-T Assessment and Plan Start: 07/10/23 15:50 Freq: Status: Active Protocol: Document 07/15/23 13:49 [facility] (Rec: 07/15/23 14:33 [facility] [id number]) Physical Therapy Assessment Rehab Potential Rehabilitation Potential Good Evaluation Complexity Number of Personal Factors/Comorbidities 3 or More Number of Body Systems Impaired 4 or More Clinical Presentation at Evaluation Evolving Impairments Impairments Activity Tolerance,Balance, Functional Activities, Functional Mobility,Gait,Pain, Posture,ROM,Soft Tissue Mobility,Strength Goals posture Shelter Goal (LTG) Pt will score at least 4/5 on VCT to show improved postural stability to allow inc standing/sitting time LTG Duration 10/07 strength Short Term Goal (STG) Pt will be indep w/HEP STG Duration 08/28/23 Workforce Planning Analyst Goal (LTG) Pt will score at least 3/5 on LPM and at least 4+/5 on B LE MMT to show improved strength to allow pt to do more active activities w/o inc pain LTG Duration 10/09/23 activity Short Term Goal (STG) Pt will be able to start gentle yoga activities w/o inc back pain. STG Duration 08/31 Shelter Goal (LTG) Pt will be able to hike more hills and inc distance to up to 4 miles occasionally w/o significant inc in back pain LTG Duration 10/08/23 ISA Impairment 21/50 Short Term Goal (STG) Pt will improve ISA score to no greater than 15/50 to show improved functional mobility. STG Duration 08/29/23 Shelter Goal (LTG) Pt will improve ISA score to no greater than 8/50 to show improved functional mobility. LTG Duration 10/08/23 Assessment Summary Assessment Pt presents w/LBP w/focus at R SI and occa R hip pain that is chronic with pt history of fusion of L3-5 and guillian [place] diagnosis that limited recovery from surgery. She has done PT in the past and also has recent history of TKA L( november) w/o full recovery and R ( a few years ago) but w/ patellar fracture. D/t this, she is unable to squat and adjusts her gait and likely has inc discomfort in her back d/t her limited knee mobility and stability along w/pain and willr equire treatmetn of knees in order to help back. Pt unable to squat further than 20 deg d/t this pain. She has significantly restricted lumbar motion w/innominate dysfunctiona nd hip restriction taht is likely contributing to pain. Pt would benefit from skilled PT to address this and improve her functional capacity. Physical Therapy Plan Frequency and Duration Frequency of Treatment 1-2x/wk Duration of treatment (weeks) 12 Plan of Care Start Date 07/15/23 Plan of Care End Date 10/08/23 Therapeutic Interventions Therapeutic Interventions Balance Training,Coordination Training,Gait Training,Home Exercise Program,Joint Mobilizations,Manual Therapy, Neuromuscular Re-education, Orthotic/Prosthetic Management ,Patient/Caregiver Education, Self-Care/Home Management,Soft Tissue Mobilization,Taping, Therapeutic Activities, Therapeutic Exercises Modalities Cold Pack/Ice Massage,Electric Stimulation,Hot Packs, Infrared Therapy,Ultrasound Next Visit Focus/Plan Next Note Type Treatment Note Next Visit Plan BLE MMT (hips, knees, ankles) manual to B hips and innominate Gentle hip stretching and yoga stretches, start gentle core work-maintain painfree
--- NOTE | 2023-07-30 10:39 | PT.OTN ---
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) Pain in right knee (07/30/23) Pain in left knee (07/30/23) Other spondylosis with radiculopathy, lumbosacral region (07/30/23) Spondylosis without myelopathy or radiculopathy, lumbar region (07/30/23) Spinal stenosis, lumbar region without neurogenic claudication (07/30/23) Muscle weakness (generalized) (07/30/23) Difficulty in walking, not elsewhere classified (07/30/23) Abnormal posture (07/30/23) Strain of muscle, fascia and tendon of lower back, initial encounter (07/30/23) Arthrodesis status (07/30/23) Physical Therapy Treatment Note PT-OP-A Visit Information Start: 07/10/23 15:50 Freq: Status: Active Protocol: Document 07/30/23 09:49 SP (Rec: 07/30/23 10:34 SP [id number]) Out-Patient Physical Therapy Visit Information Visit Information Visit Type Treatment Note Visit Note 06/28 Visit Start Time 09:49 Visit Stop Time 10:39 Visit Number 2 Number of MEDICAL PHYSICS RESEARCHER Visits 1 PT-OP-B Current Condition Start: 07/10/23 15:50 Freq: Status: Active Protocol: Document 07/15/23 13:49 [facility] (Rec: 07/15/23 14:33 [facility] [id number]) Current Condition History of Current Condition Current Complaints LBP, B knee pain, neuropath History of Current Condition Pt reports in 2016, she had back surgery (L3-5 fusion) and after got guilliane [place] and took a long time to dx it. She had drop foot but it is better. Has neuropathy in BLEs . Pt has been trouble getting rid of back pain. She saw Dr. Justice a lot. She saw a PA ortho recently and thought possibly one screw is tipped up. Midback pain is newer and not as bad but still painful. PA gave her meloxicam, mm relaxor and a pack of prednisone. She didn't take them d/t them being about to go away. MM relaxor and meloxicam made her nauseaus. Tylenol and ibuprofen do not help back. Heat helps mroe than ice. Has been given gabapentin but it hasn't worked before. Pain currently intefering at night. Uses a pillow btwn knees. Pt has hx of B TKA and R one the patella fx possibly d/t quad tendn or could have been a pin too long. L TKA was done in November but knee was not resurfaced, so still has pain. R TKA was done about 3.5 years ago. Walks 1-3 miles w/dog in AM and does have pain after. She was reluctant to go back to PT because she had an incident w /inc pain after to do 50 bridges. She used to be extremely active. She knows she let her core go. Neuropathy affects her mostly in bottom of feet and into lower legs. It can be the worst at night. Pt back pain was off/on for several years prior to getting the point of needing surgery. She has been seeing a chiro who does trudy technique in [place] and that has helped her neck a lot. It hasn't helped her back. Treatment Goals Patient/Caregiver Goals Be in less pain and be more mobile, Be able to do yoga, be able to hike more hills and hike longer (get up to 4 miles ), garden/yard work PT-OP-C Subjective Start: 07/10/23 15:50 Freq: Status: Active Protocol: Document 07/30/23 09:49 SP (Rec: 07/30/23 10:34 SP [id number]) OP-PT Subjective Patient Comments Patient Comments Pt reports doing ok after eval . PT-OP-D Balance Start: 07/10/23 15:50 Freq: Status: Active Protocol: Document 07/15/23 13:49 [facility] (Rec: 07/15/23 14:33 [facility] [id number]) Balance Tests Single Limb Standing Single Limb- Right 12 sec Single Limb- Left 12 sec PT-OP-F Manual Assessment Start: 07/10/23 15:50 Freq: Status: Active Protocol: Document 07/15/23 13:49 [facility] (Rec: 07/15/23 14:33 [facility] [id number]) Manual Assessments Joint Mobility Assessment Joint Mobility Assessment R iliac crest higher, equal greater trochanters Other Manual Assessments Other Manual Assessments Pt can only squat about 20 deg and painful at that PT-OP-G Mobility & Gait Start: 07/10/23 15:50 Freq: Status: Active Protocol: Document 07/15/23 13:49 [facility] (Rec: 07/15/23 14:33 [facility] [id number]) OP Gait Assessment Comments Gait Comments dec push off B , leans R slightly, dec RLE stance time, add B PT-OP-J Posture/Palpation/Skin Start: 07/10/23 15:50 Freq: Status: Active Protocol: Document 07/15/23 13:49 [facility] (Rec: 07/15/23 14:33 [facility] [id number]) Posture Evaluation [facility] Postural Classification System [facility] Postural Classifications Posterior/Posterior Vertebral Compression Test 0 Lumbar Protective Mechanism Left AP 0 Lumbar Protective Mechanism Right AP 0 Lumbar Protective Mechanism Left PA 0 Comments Posture Comments R pelvic shear, rot L, supinated R foot, IR L femur, B knee valgus PT-OP-K Range of Motion Start: 07/10/23 15:50 Freq: Status: Active Protocol: Document 07/15/23 13:49 [facility] (Rec: 07/15/23 14:33 [facility] [id number]) Lumbar Spine Range of Motion Lumbar Spine Active Percentage Flexion 20 Extension 30 Rotation Left 30 Rotation Right 30 Lateral Flexion Left 50 Lateral Flexion Right 50 PT-OP-L Special Tests Start: 07/10/23 15:50 Freq: Status: Active Protocol: Document 07/15/23 13:49 [facility] (Rec: 07/15/23 14:33 [facility] [id number]) Special Tests Lumbar Spine Special Tests Slump Test Results neg for back pain, inc tension on L PT-OP-Q Treatments Start: 07/10/23 15:50 Freq: Status: Active Protocol: Document 07/30/23 09:49 SP (Rec: 07/30/23 10:34 SP [id number]) Therapeutic Exercises Supine Exercises TA heel slide Supine Exercise Name added to HEP Side bilateral Reps/Minutes x10 Comments cued TA, PPT HS stretch Supine Exercise Name added to HEP /c AP Side bilateral Equipment Used grasp behind thigh Reps/Minutes 2x10 Comments cued slow gentle HS stretch Fig 4 Supine Exercise Name added to HEP Side bilateral Resistance LLE over brown, RLE inner L thigh Reps/Minutes 30 x2 Comments cued TA/CORDAGE SALES REPRESENTATIVE as needed piriformis stretch Supine Exercise Name added to HEP Side bilateral Equipment Used ankle across opp thigh (not knee) Reps/Minutes 30 x2 Comments good feedback stretch PF LTR Supine Exercise Name added to HEP- TA fac Side bilateral Reps/Minutes x10 Comments cue slow pacing, pelvis level, improved TA fac, little quiver/self correct pelvic tilts Supine Exercise Name AP Reps/Minutes x10 Comments anterior more irritating, cued pnfree TA trng Supine Exercise Name added to HEP Reps/Minutes 5SH x5 Comments ed cues TA draw in Other Exercises self STMs Other Exercise Name ed/demonstration Side bilateral Equipment Used rolling pin quad/ITB/HS/Calf, ball wall TLF, glut, ES Reps/Minutes 4 min total Comments good feedback massage, split stance pressure beneficial Self-Care/Home Management Treatment Education Other Education Education on gentle stretching painfree range and stop if uncomfortable, MHP vs CP both beneficial and described purposes of both when use. PT-OP-R Modalities Start: 07/10/23 15:50 Freq: Status: Active Protocol: Document 07/30/23 09:49 SP (Rec: 07/30/23 10:34 SP [id number]) Hot Pack/Cold Pack Treatment MHP LS Patient Position Hooklying Patient Tolerance Good PT-OP-T Assessment and Plan Start: 07/10/23 15:50 Freq: Status: Active Protocol: Document 07/30/23 09:49 SP (Rec: 07/30/23 10:34 SP [id number]) Physical Therapy Assessment Goals posture Air Dispatcher Goal (LTG) Pt will score at least 4/5 on VCT to show improved postural stability to allow inc standing/sitting time LTG Duration 10/07 strength Short Term Goal (STG) Pt will be indep w/HEP STG Duration 08/28/23 Jail Goal (LTG) Pt will score at least 3/5 on LPM and at least 4+/5 on B LE MMT to show improved strength to allow pt to do more active activities w/o inc pain LTG Duration 10/09/23 activity Short Term Goal (STG) Pt will be able to start gentle yoga activities w/o inc back pain. STG Duration 08/31 Air Dispatcher Goal (LTG) Pt will be able to hike more hills and inc distance to up to 4 miles occasionally w/o significant inc in back pain LTG Duration 10/08/23 ISA Impairment 21/50 Short Term Goal (STG) Pt will improve ISA score to no greater than 15/50 to show improved functional mobility. STG Duration 08/29/23 Air Dispatcher Goal (LTG) Pt will improve ISA score to no greater than 8/50 to show improved functional mobility. LTG Duration 10/08/23 Assessment Summary Assessment Tx focused on TA trng, beginning core strenghening and stretching/flexibility for reduction in LB soreness reports. Cues for set up and proper form, good TA and slow pnfree ROM demonstrated. End tx pt reports pain increased little more 5>7/10. She reports utilized HP more than CP due to being cold but open to using if will help. Pt improved response of pain reduction post MHP end tx, no scale rating given. Ed benefits if Modalities MHP/CP. Physical Therapy Plan Frequency and Duration Frequency of Treatment 1-2x/wk Duration of treatment (weeks) 12 Plan of Care Start Date 07/15/23 Plan of Care End Date 10/08/23 Therapeutic Interventions Therapeutic Interventions Balance Training,Coordination Training,Gait Training,Home Exercise Program,Joint Mobilizations,Manual Therapy, Neuromuscular Re-education, Orthotic/Prosthetic Management ,Patient/Caregiver Education, Self-Care/Home Management,Soft Tissue Mobilization,Taping, Therapeutic Activities, Therapeutic Exercises Modalities Cold Pack/Ice Massage,Electric Stimulation,Hot Packs, Infrared Therapy,Ultrasound Next Visit Focus/Plan Next Note Type Treatment Note Next Visit Plan HEP: core HS/LTR, stretching PF/HS/FIg 4, self STMs LEs/ back/gluts POC: BLE MMT (hips, knees, ankles) manual to B hips and innominate Gentle hip stretching and yoga stretches, start gentle core work-maintain painfree PRogress pt goals: bending feed dog, on/off floor
--- NOTE | 2023-08-01 09:46 | PT.OTN ---
Addendum entered and electronically signed by Janette Babin PTA 08/01/23 15:17: DIscussed pt to call or stop by schedulers and see if on waiting list for next week and can call day of see if is a cancellation to allow 2x/wk of POC. SHe verbalized understanding. Original Note: Current Diagnoses Guillain-[place] syndrome (08/01/23) Pain in right knee (08/01/23) Pain in left knee (08/01/23) Other spondylosis with radiculopathy, lumbosacral region (08/01/23) Spondylosis without myelopathy or radiculopathy, lumbar region (08/01/23) Spinal stenosis, lumbar region without neurogenic claudication (08/01/23) Muscle weakness (generalized) (08/01/23) Difficulty in walking, not elsewhere classified (08/01/23) Abnormal posture (08/01/23) Strain of muscle, fascia and tendon of lower back, initial encounter (08/01/23) Arthrodesis status (08/01/23) Physical Therapy Treatment Note PT-OP-A Visit Information Start: 07/10/23 15:50 Freq: Status: Active Protocol: Document 08/01/23 09:02 SP (Rec: 08/01/23 09:49 SP [id number]) Out-Patient Physical Therapy Visit Information Visit Information Visit Type Treatment Note Visit Note 07/26 Visit Start Time 09:02 Visit Stop Time 09:46 Visit Number 3 Number of NETWORK AND THREAT SUPPORT SPECIALIST Visits 2 PT-OP-B Current Condition Start: 07/10/23 15:50 Freq: Status: Active Protocol: Document 07/15/23 13:49 [facility] (Rec: 07/15/23 14:33 [facility] [id number]) Current Condition History of Current Condition Current Complaints LBP, B knee pain, neuropath History of Current Condition Pt reports in 2016, she had back surgery (L3-5 fusion) and after got guilliane [place] and took a long time to dx it. She had drop foot but it is better. Has neuropathy in BLEs . Pt has been trouble getting rid of back pain. She saw Dr. Justice a lot. She saw a PA ortho recently and thought possibly one screw is tipped up. Midback pain is newer and not as bad but still painful. PA gave her meloxicam, mm relaxor and a pack of prednisone. She didn't take them d/t them being about to go away. MM relaxor and meloxicam made her nauseaus. Tylenol and ibuprofen do not help back. Heat helps mroe than ice. Has been given gabapentin but it hasn't worked before. Pain currently intefering at night. Uses a pillow btwn knees. Pt has hx of B TKA and R one the patella fx possibly d/t quad tendn or could have been a pin too long. L TKA was done in November but knee was not resurfaced, so still has pain. R TKA was done about 3.5 years ago. Walks 1-3 miles w/dog in AM and does have pain after. She was reluctant to go back to PT because she had an incident w /inc pain after to do 50 bridges. She used to be extremely active. She knows she let her core go. Neuropathy affects her mostly in bottom of feet and into lower legs. It can be the worst at night. Pt back pain was off/on for several years prior to getting the point of needing surgery. She has been seeing a chiro who does trudy technique in [place] and that has helped her neck a lot. It hasn't helped her back. Treatment Goals Patient/Caregiver Goals Be in less pain and be more mobile, Be able to do yoga, be able to hike more hills and hike longer (get up to 4 miles ), garden/yard work PT-OP-C Subjective Start: 07/10/23 15:50 Freq: Status: Active Protocol: Document 08/01/23 09:02 SP (Rec: 08/01/23 09:49 SP [id number]) OP-PT Subjective Patient Comments Patient Comments Pt reports little sore after last tx but better the next day. PT-OP-D Balance Start: 07/10/23 15:50 Freq: Status: Active Protocol: Document 07/15/23 13:49 [facility] (Rec: 07/15/23 14:33 [facility] [id number]) Balance Tests Single Limb Standing Single Limb- Right 12 sec Single Limb- Left 12 sec PT-OP-F Manual Assessment Start: 07/10/23 15:50 Freq: Status: Active Protocol: Document 07/15/23 13:49 [facility] (Rec: 07/15/23 14:33 [facility] [id number]) Manual Assessments Joint Mobility Assessment Joint Mobility Assessment R iliac crest higher, equal greater trochanters Other Manual Assessments Other Manual Assessments Pt can only squat about 20 deg and painful at that PT-OP-G Mobility & Gait Start: 07/10/23 15:50 Freq: Status: Active Protocol: Document 07/15/23 13:49 [facility] (Rec: 07/15/23 14:33 [facility] [id number]) OP Gait Assessment Comments Gait Comments dec push off B , leans R slightly, dec RLE stance time, add B PT-OP-J Posture/Palpation/Skin Start: 07/10/23 15:50 Freq: Status: Active Protocol: Document 07/15/23 13:49 [facility] (Rec: 07/15/23 14:33 [facility] [id number]) Posture Evaluation [facility] Postural Classification System [facility] Postural Classifications Posterior/Posterior Vertebral Compression Test 0 Lumbar Protective Mechanism Left AP 0 Lumbar Protective Mechanism Right AP 0 Lumbar Protective Mechanism Left PA 0 Comments Posture Comments R pelvic shear, rot L, supinated R foot, IR L femur, B knee valgus PT-OP-K Range of Motion Start: 07/10/23 15:50 Freq: Status: Active Protocol: Document 07/15/23 13:49 [facility] (Rec: 07/15/23 14:33 [facility] [id number]) Lumbar Spine Range of Motion Lumbar Spine Active Percentage Flexion 20 Extension 30 Rotation Left 30 Rotation Right 30 Lateral Flexion Left 50 Lateral Flexion Right 50 PT-OP-L Special Tests Start: 07/10/23 15:50 Freq: Status: Active Protocol: Document 07/15/23 13:49 [facility] (Rec: 07/15/23 14:33 [facility] [id number]) Special Tests Lumbar Spine Special Tests Slump Test Results neg for back pain, inc tension on L PT-OP-Q Treatments Start: 07/10/23 15:50 Freq: Status: Active Protocol: Document 08/01/23 09:02 SP (Rec: 08/01/23 09:49 SP [id number]) Therapeutic Exercises Supine Exercises TA heel slide Supine Exercise Name reviewed HEP Side bilateral Reps/Minutes x15 Comments cued TA, PPT HS stretch Supine Exercise Name reviewed HEP /c AP Side bilateral Equipment Used grasp behind thigh Reps/Minutes x10 Comments cued slow gentle HS stretch Fig 4 Supine Exercise Name reviewed HEP Side bilateral Resistance LE over brown, R side felt tighter Reps/Minutes 30 x2 Comments cued TA/ADULT DAY CARE WORKER as needed piriformis stretch Supine Exercise Name reviewed HEP Side bilateral Equipment Used ankle across opp thigh (not knee) Reps/Minutes x60 Comments good feedback stretch PF LTR Supine Exercise Name reviewed HEP- TA fac Side bilateral Resistance AROM x5, over 55cm tball x15 Comments cue slow pacing, pelvis level, improved TA fac, pnfree pelvic tilts Supine Exercise Name A<>P, ADULT DAY CARE WORKER Reps/Minutes x10 Comments cued pnfree TA trng Supine Exercise Name reviewed HEP Reps/Minutes 10SH x5 Comments ed cues TA draw in Sitting Exercises hip abd Sitting Exercise Name added to HEP Side bilateral Resistance Tb x3 [place] Reps/Minutes x5 fine, 5 SH x5 Comments stated muscle tiring, pnfree. STS Equipment Used 18 table Reps/Minutes 2x5 reps Comments cued hip hinge- improved for no UE Manual Therapy Treatment Soft Tissue Mobilization R hip flexor Body Location R TFL, Psoas, RF Mobilization Type Strumming,Sustained Pressure, Other Intensity/Depth Moderate Body Position Supine Comments /c breath- improved R hip ER post manual PT-OP-R Modalities Start: 07/10/23 15:50 Freq: Status: Active Protocol: Document 07/30/23 09:49 SP (Rec: 07/30/23 10:34 SP [id number]) Hot Pack/Cold Pack Treatment MHP LS Patient Position Hooklying Patient Tolerance Good PT-OP-T Assessment and Plan Start: 07/10/23 15:50 Freq: Status: Active Protocol: Document 08/01/23 09:02 SP (Rec: 08/01/23 09:49 SP [id number]) Physical Therapy Assessment Goals posture [facility] Goal (LTG) Pt will score at least 4/5 on VCT to show improved postural stability to allow inc standing/sitting time LTG Duration 10/07 strength Short Term Goal (STG) Pt will be indep w/HEP STG Duration 08/28/23 [facility] Goal (LTG) Pt will score at least 3/5 on LPM and at least 4+/5 on B LE MMT to show improved strength to allow pt to do more active activities w/o inc pain LTG Duration 10/09/23 activity Short Term Goal (STG) Pt will be able to start gentle yoga activities w/o inc back pain. STG Duration 08/31 Boat Hoist Operator Goal (LTG) Pt will be able to hike more hills and inc distance to up to 4 miles occasionally w/o significant inc in back pain LTG Duration 10/08/23 ISA Impairment 21/50 Short Term Goal (STG) Pt will improve ISA score to no greater than 15/50 to show improved functional mobility. STG Duration 08/29/23 Boat Hoist Operator Goal (LTG) Pt will improve ISA score to no greater than 8/50 to show improved functional mobility. LTG Duration 10/08/23 Assessment Summary Assessment Pt reponds well to manual, improved R hip ER AROM. She reported did feel back little recruitment during heel slide on R, improved post cues for TA fac and PPT awareness. She initially had hard time coming to standing without UE support but post instruction for hip hinge asd/desc able to complete slow eccentric control to 18 table with no UE support and little to no lateral L knee muscle tension, tends to hurt her and why has used her hands. Physical Therapy Plan Frequency and Duration Frequency of Treatment 1-2x/wk Duration of treatment (weeks) 12 Plan of Care Start Date 07/15/23 Plan of Care End Date 10/08/23 Therapeutic Interventions Therapeutic Interventions Balance Training,Coordination Training,Gait Training,Home Exercise Program,Joint Mobilizations,Manual Therapy, Neuromuscular Re-education, Orthotic/Prosthetic Management ,Patient/Caregiver Education, Self-Care/Home Management,Soft Tissue Mobilization,Taping, Therapeutic Activities, Therapeutic Exercises Modalities Cold Pack/Ice Massage,Electric Stimulation,Hot Packs, Infrared Therapy,Ultrasound Next Visit Focus/Plan Next Note Type Treatment Note Next Visit Plan Reviewe HEP stretching and light core, added TA STS and resisted hip abd seated last tx. Consider cold laser per pt request if beneficial, good experience in her past. POC: BLE MMT (hips, knees, ankles) manual to B hips and innominate Gentle hip stretching and yoga stretches, start gentle core work-maintain painfree PRogress pt goals: bending feed dog, on/off floor
--- NOTE | 2023-08-05 13:46 | PT.OTN ---
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) Pain in right knee (08/05/23) Pain in left knee (08/05/23) Other spondylosis with radiculopathy, lumbosacral region (08/05/23) Spondylosis without myelopathy or radiculopathy, lumbar region (08/05/23) Spinal stenosis, lumbar region without neurogenic claudication (08/05/23) Muscle weakness (generalized) (08/05/23) Difficulty in walking, not elsewhere classified (08/05/23) Abnormal posture (08/05/23) Strain of muscle, fascia and tendon of lower back, initial encounter (08/05/23) Arthrodesis status (08/05/23) Physical Therapy Treatment Note PT-OP-A Visit Information Start: 07/10/23 15:50 Freq: Status: Active Protocol: Document 08/05/23 09:48 [facility] (Rec: 08/05/23 13:45 [facility] [id number]) Out-Patient Physical Therapy Visit Information Visit Information Visit Type Treatment Note Visit Note 08/26 Visit Start Time 09:47 Visit Stop Time 10:45 Visit Number 4 Number of VULCANIZER OPERATOR Visits 0 PT-OP-B Current Condition Start: 07/10/23 15:50 Freq: Status: Active Protocol: Document 07/15/23 13:49 [facility] (Rec: 07/15/23 14:33 [facility] [id number]) Current Condition History of Current Condition Current Complaints LBP, B knee pain, neuropath History of Current Condition Pt reports in 2016, she had back surgery (L3-5 fusion) and after got guilliane [place] and took a long time to dx it. She had drop foot but it is better. Has neuropathy in BLEs . Pt has been trouble getting rid of back pain. She saw Dr. Justice a lot. She saw a [place] ortho recently and thought possibly one screw is tipped up. Midback pain is newer and not as bad but still painful. PA gave her meloxicam, mm relaxor and a pack of prednisone. She didn't take them d/t them being about to go away. MM relaxor and meloxicam made her nauseaus. Tylenol and ibuprofen do not help back. Heat helps mroe than ice. Has been given gabapentin but it hasn't worked before. Pain currently intefering at night. Uses a pillow btwn knees. Pt has hx of B TKA and R one the patella fx possibly d/t quad tendn or could have been a pin too long. L TKA was done in November but knee was not resurfaced, so still has pain. R TKA was done about 3.5 years ago. Walks 1-3 miles w/dog in AM and does have pain after. She was reluctant to go back to PT because she had an incident w /inc pain after to do 50 bridges. She used to be extremely active. She knows she let her core go. Neuropathy affects her mostly in bottom of feet and into lower legs. It can be the worst at night. Pt back pain was off/on for several years prior to getting the point of needing surgery. She has been seeing a chiro who does trudy technique in [place] and that has helped her neck a lot. It hasn't helped her back. Treatment Goals Patient/Caregiver Goals Be in less pain and be more mobile, Be able to do yoga, be able to hike more hills and hike longer (get up to 4 miles ), garden/yard work PT-OP-C Subjective Start: 07/10/23 15:50 Freq: Status: Active Protocol: Document 08/05/23 09:48 [facility] (Rec: 08/05/23 13:45 [id number] OP-PT Subjective Patient Comments Patient Comments pt reports sit to stands aggrevate her knees. Her mornings are the hardest and she doesn't sleep well. PT-OP-D Balance Start: 07/10/23 15:50 Freq: Status: Active Protocol: Document 07/15/23 13:49 [facility] (Rec: 07/15/23 14:33 [facility] [id number]) Balance Tests Single Limb Standing Single Limb- Right 12 sec Single Limb- Left 12 sec PT-OP-F Manual Assessment Start: 07/10/23 15:50 Freq: Status: Active Protocol: Document 07/15/23 13:49 [facility] (Rec: 07/15/23 14:33 [facility] [id number]) Manual Assessments Joint Mobility Assessment Joint Mobility Assessment R iliac crest higher, equal greater trochanters Other Manual Assessments Other Manual Assessments Pt can only squat about 20 deg and painful at that PT-OP-G Mobility & Gait Start: 07/10/23 15:50 Freq: Status: Active Protocol: Document 07/15/23 13:49 [facility] (Rec: 07/15/23 14:33 [id number] OP Gait Assessment Comments Gait Comments dec push off B , leans R slightly, dec RLE stance time, add B PT-OP-J Posture/Palpation/Skin Start: 07/10/23 15:50 Freq: Status: Active Protocol: Document 07/15/23 13:49 [facility] (Rec: 07/15/23 14:33 [id number] Posture Evaluation [facility] Postural Classification System [facility] Postural Classifications Posterior/Posterior Vertebral Compression Test 0 Lumbar Protective Mechanism Left AP 0 Lumbar Protective Mechanism Right AP 0 Lumbar Protective Mechanism Left PA 0 Comments Posture Comments R pelvic shear, rot L, supinated R foot, IR L femur, B knee valgus PT-OP-K Range of Motion Start: 07/10/23 15:50 Freq: Status: Active Protocol: Document 07/15/23 13:49 [facility] (Rec: 07/15/23 14:33 [id number]) Lumbar Spine Range of Motion Lumbar Spine Active Percentage Flexion 20 Extension 30 Rotation Left 30 Rotation Right 30 Lateral Flexion Left 50 Lateral Flexion Right 50 PT-OP-L Special Tests Start: 07/10/23 15:50 Freq: Status: Active Protocol: Document 07/15/23 13:49 [facility] (Rec: 07/15/23 14:33 [id number] Special Tests Lumbar Spine Special Tests Slump Test Results neg for back pain, inc tension on L PT-OP-Q Treatments Start: 07/10/23 15:50 Freq: Status: Active Protocol: Document 08/05/23 09:48 [facility] (Rec: 08/05/23 13:45 [facility] [id number]) Therapeutic Activity Therapeutic Activity sit to stand Comments 2x8 cues for knees pushed apart and tracking over toes sleep Reps/Minutes 10 min Comments s/l and supine sleeping position w/use of pillow propping. Working on neutral spine position Manual Therapy Treatment Soft Tissue Mobilization adductors Body Location R Mobilization Type Rolling Intensity/Depth Moderate Body Position Hooklying Comments w/ER scar Body Location L knee Mobilization Type Myofascial Release Intensity/Depth Superficial Body Position Hooklying Comments w/APs-pt taught also in sitting Joint Mobilizations hip Joint R hip free the ballER FM Body Position Hooklying PT-OP-R Modalities Start: 07/10/23 15:50 Freq: Status: Active Protocol: Document 08/05/23 09:48 [facility] (Rec: 08/05/23 13:45 [facility] [id number]) Hot Pack/Cold Pack Treatment Cold Pack Location L knee Patient Position Hooklying MHP LS Patient Position Hooklying Patient Tolerance Good PT-OP-T Assessment and Plan Start: 07/10/23 15:50 Freq: Status: Active Protocol: Document 08/05/23 09:48 [facility] (Rec: 08/05/23 13:45 [facility] [id number]) Physical Therapy Assessment Goals posture Inserting Press Operator Goal (LTG) Pt will score at least 4/5 on VCT to show improved postural stability to allow inc standing/sitting time LTG Duration 10/07 strength Short Term Goal (STG) Pt will be indep w/HEP STG Duration 08/28/23 Inserting Press Operator Goal (LTG) Pt will score at least 3/5 on LPM and at least 4+/5 on B LE MMT to show improved strength to allow pt to do more active activities w/o inc pain LTG Duration 10/09/23 activity Short Term Goal (STG) Pt will be able to start gentle yoga activities w/o inc back pain. STG Duration 08/31 Snf Goal (LTG) Pt will be able to hike more hills and inc distance to up to 4 miles occasionally w/o significant inc in back pain LTG Duration 10/08/23 ISA Impairment 21/50 Short Term Goal (STG) Pt will improve ISA score to no greater than 15/50 to show improved functional mobility. STG Duration 08/29/23 Inserting Press Operator Goal (LTG) Pt will improve ISA score to no greater than 8/50 to show improved functional mobility. LTG Duration 10/08/23 Assessment Summary Assessment Pt improved L knee flex from 109 to 115 after manual which should allow greater ease for squatting to dec load off back . 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 Improved sit to stand performance w/cues. band inc pain so just focus on movement Physical Therapy Plan Frequency and Duration Frequency of Treatment 1-2x/wk Duration of treatment (weeks) 12 Plan of Care Start Date 07/15/23 Plan of Care End Date 10/08/23 Next Visit Focus/Plan Next Note Type Treatment Note Next Visit Plan review exercises as needed; cont to work on position for sit ot stand; workon hip and innominate mobility for improved function
--- NOTE | 2023-08-12 14:38 | PT.OTN ---
Current Diagnoses Guillain-[place] syndrome (08/12/23) Pain in right knee (08/12/23) Pain in left knee (08/12/23) Other spondylosis with radiculopathy, lumbosacral region (08/12/23) Spondylosis without myelopathy or radiculopathy, lumbar region (08/12/23) Spinal stenosis, lumbar region without neurogenic claudication (08/12/23) Muscle weakness (generalized) (08/12/23) Difficulty in walking, not elsewhere classified (08/12/23) Abnormal posture (08/12/23) Strain of muscle, fascia and tendon of lower back, initial encounter (08/12/23) Arthrodesis status (08/12/23) Physical Therapy Treatment Note PT-OP-A Visit Information Start: 07/10/23 15:50 Freq: Status: Active Protocol: Document 08/12/23 13:51 [facility] (Rec: 08/12/23 14:38 [facility] [id number]) Out-Patient Physical Therapy Visit Information Visit Information Visit Type Treatment Note Visit Note 09/25 Visit Start Time 13:52 Visit Stop Time 14:45 Visit Number 5 Number of HIGH LIFT DRIVER Visits 0 PT-OP-B Current Condition Start: 07/10/23 15:50 Freq: Status: Active Protocol: Document 07/15/23 13:49 [facility] (Rec: 07/15/23 14:33 [facility] [id number]) Current Condition History of Current Condition Current Complaints LBP, B knee pain, neuropath History of Current Condition Pt reports in 2016, she had back surgery (L3-5 fusion) and after got guilliane [place] and took a long time to dx it. She had drop foot but it is better. Has neuropathy in BLEs . Pt has been trouble getting rid of back pain. She saw Dr. Justice a lot. She saw a PA ortho recently and thought possibly one screw is tipped up. Midback pain is newer and not as bad but still painful. PA gave her meloxicam, mm relaxor and a pack of prednisone. She didn't take them d/t them being about to go away. MM relaxor and meloxicam made her nauseaus. Tylenol and ibuprofen do not help back. Heat helps mroe than ice. Has been given gabapentin but it hasn't worked before. Pain currently intefering at night. Uses a pillow btwn knees. Pt has hx of B TKA and R one the patella fx possibly d/t quad tendn or could have been a pin too long. L TKA was done in November but knee was not resurfaced, so still has pain. R TKA was done about 3.5 years ago. Walks 1-3 miles w/dog in AM and does have pain after. She was reluctant to go back to PT because she had an incident w /inc pain after to do 50 bridges. She used to be extremely active. She knows she let her core go. Neuropathy affects her mostly in bottom of feet and into lower legs. It can be the worst at night. Pt back pain was off/on for several years prior to getting the point of needing surgery. She has been seeing a chiro who does trudy technique in [place] and that has helped her neck a lot. It hasn't helped her back. Treatment Goals Patient/Caregiver Goals Be in less pain and be more mobile, Be able to do yoga, be able to hike more hills and hike longer (get up to 4 miles ), garden/yard work PT-OP-C Subjective Start: 07/10/23 15:50 Freq: Status: Active Protocol: Document 08/12/23 13:51 [facility] (Rec: 08/12/23 14:38 [facility] [id number]) OP-PT Subjective Patient Comments Patient Comments Pt reprots the last few times she did her exercises, had inc pain in back and R hip PT-OP-D Balance Start: 07/10/23 15:50 Freq: Status: Active Protocol: Document 07/15/23 13:49 [facility] (Rec: 07/15/23 14:33 [facility] [id number]) Balance Tests Single Limb Standing Single Limb- Right 12 sec Single Limb- Left 12 sec PT-OP-F Manual Assessment Start: 07/10/23 15:50 Freq: Status: Active Protocol: Document 07/15/23 13:49 [facility] (Rec: 07/15/23 14:33 [facility] [id number]) Manual Assessments Joint Mobility Assessment Joint Mobility Assessment R iliac crest higher, equal greater trochanters Other Manual Assessments Other Manual Assessments Pt can only squat about 20 deg and painful at that PT-OP-G Mobility & Gait Start: 07/10/23 15:50 Freq: Status: Active Protocol: Document 07/15/23 13:49 [facility] (Rec: 07/15/23 14:33 [id number] OP Gait Assessment Comments Gait Comments dec push off B , leans R slightly, dec RLE stance time, add B PT-OP-J Posture/Palpation/Skin Start: 07/10/23 15:50 Freq: Status: Active Protocol: Document 07/15/23 13:49 [facility] (Rec: 07/15/23 14:33 [place] [id number]) Posture Evaluation [facility] Postural Classification System [facility] Postural Classifications Posterior/Posterior Vertebral Compression Test 0 Lumbar Protective Mechanism Left AP 0 Lumbar Protective Mechanism Right AP 0 Lumbar Protective Mechanism Left PA 0 Comments Posture Comments R pelvic shear, rot L, supinated R foot, IR L femur, B knee valgus PT-OP-K Range of Motion Start: 07/10/23 15:50 Freq: Status: Active Protocol: Document 07/15/23 13:49 [facility] (Rec: 07/15/23 14:33 [id number] Lumbar Spine Range of Motion Lumbar Spine Active Percentage Flexion 20 Extension 30 Rotation Left 30 Rotation Right 30 Lateral Flexion Left 50 Lateral Flexion Right 50 PT-OP-L Special Tests Start: 07/10/23 15:50 Freq: Status: Active Protocol: Document 07/15/23 13:49 [facility] (Rec: 07/15/23 14:33 [id number] Special Tests Lumbar Spine Special Tests Slump Test Results neg for back pain, inc tension on L PT-OP-Q Treatments Start: 07/10/23 15:50 Freq: Status: Active Protocol: Document 08/12/23 13:51 [facility] (Rec: 08/12/23 14:38 [id number] Therapeutic Exercises Supine Exercises TA heel slide Supine Exercise Name reviewed HEP Side bilateral Reps/Minutes x15 Comments cued TA -pt to use fingers at spine HS stretch Supine Exercise Name reviewed HEP /c AP Side bilateral Equipment Used grasp behind thigh Reps/Minutes x10 Comments cues not to pull thigh all the way to the chest Fig 4 Supine Exercise Name reviewed HEP Side right Resistance LE over brown, R side felt tighter Reps/Minutes 30 piriformis stretch Supine Exercise Name reviewed HEP Side bilateral Equipment Used ankle across opp knee w/gentle pull Reps/Minutes x60 Comments good feedback stretch PF LTR Supine Exercise Name cues for segmental stability Side bilateral Reps/Minutes 15 ea Sitting Exercises STS Side bilateral Equipment Used 18 in chair w/blue foam Reps/Minutes 8 Comments cues wt shift fwd to ft Manual Therapy Treatment Soft Tissue Mobilization lumbar Body Location R ES & QL Mobilization Type Rolling Intensity/Depth Moderate Comments w/post dep glutes Body Location R Mobilization Type Rolling Intensity/Depth Moderate Body Position Sidelying Comments w/flex Joint Mobilizations innominate Direction add R Grade II PT-OP-R Modalities Start: 07/10/23 15:50 Freq: Status: Active Protocol: Document 08/12/23 13:51 [facility] (Rec: 08/12/23 14:38 [facility] [id number]) Hot Pack/Cold Pack Treatment MHP LS Patient Position Hooklying Patient Tolerance Good PT-OP-T Assessment and Plan Start: 07/10/23 15:50 Freq: Status: Active Protocol: Document 08/12/23 13:51 [facility] (Rec: 08/12/23 14:38 [facility] [id number]) Physical Therapy Assessment Goals posture Drapery Worker Goal (LTG) Pt will score at least 4/5 on VCT to show improved postural stability to allow inc standing/sitting time LTG Duration 10/07 strength Short Term Goal (STG) Pt will be indep w/HEP STG Duration 08/28/23 Drapery Worker Goal (LTG) Pt will score at least 3/5 on LPM and at least 4+/5 on B LE MMT to show improved strength to allow pt to do more active activities w/o inc pain LTG Duration 10/09/23 activity Short Term Goal (STG) Pt will be able to start gentle yoga activities w/o inc back pain. STG Duration 08/31 Usp Goal (LTG) Pt will be able to hike more hills and inc distance to up to 4 miles occasionally w/o significant inc in back pain LTG Duration 10/08/23 ISA Impairment 21/50 Short Term Goal (STG) Pt will improve ISA score to no greater than 15/50 to show improved functional mobility. STG Duration 08/29/23 Usp Goal (LTG) Pt will improve ISA score to no greater than 8/50 to show improved functional mobility. LTG Duration 10/08/23 Assessment Summary Assessment Pt had improved performance w/ exercises w/significant cues needed. Improved core engagement after along w/ improved response to stretches . Physical Therapy Plan Frequency and Duration Frequency of Treatment 1-2x/wk Duration of treatment (weeks) 12 Plan of Care Start Date 07/15/23 Plan of Care End Date 10/08/23 Next Visit Focus/Plan Next Note Type Treatment Note Next Visit Plan review exercises as needed; manual to improve lumbar, hip and innominate relationship
--- NOTE | 2023-08-15 09:40 | PT.OTN ---
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) Pain in right knee (08/15/23) Pain in left knee (08/15/23) Other spondylosis with radiculopathy, lumbosacral region (08/15/23) Spondylosis without myelopathy or radiculopathy, lumbar region (08/15/23) Spinal stenosis, lumbar region without neurogenic claudication (08/15/23) Muscle weakness (generalized) (08/15/23) Difficulty in walking, not elsewhere classified (08/15/23) Abnormal posture (08/15/23) Strain of muscle, fascia and tendon of lower back, initial encounter (08/15/23) Arthrodesis status (08/15/23) Physical Therapy Treatment Note PT-OP-A Visit Information Start: 07/10/23 15:50 Freq: Status: Active Protocol: Document 08/15/23 08:59 SP (Rec: 08/15/23 09:54 SP [id number]) Out-Patient Physical Therapy Visit Information Visit Information Visit Type Treatment Note Visit Note 10/26 Visit Start Time 09:00 Visit Stop Time 09:40 Visit Number 6 Number of LIGHT OUT EXAMINER Visits 1 PT-OP-B Current Condition Start: 07/10/23 15:50 Freq: Status: Active Protocol: Document 07/15/23 13:49 [facility] (Rec: 07/15/23 14:33 [facility] [id number]) Current Condition History of Current Condition Current Complaints LBP, B knee pain, neuropath History of Current Condition Pt reports in 2016, she had back surgery (L3-5 fusion) and after got guilliane Lathrop and took a long time to dx it. She had drop foot but it is better. Has neuropathy in BLEs . Pt has been trouble getting rid of back pain. She saw Dr. Justice a lot. She saw a PA ortho recently and thought possibly one screw is tipped up. Midback pain is newer and not as bad but still painful. PA gave her meloxicam, mm relaxor and a pack of prednisone. She didn't take them d/t them being about to go away. MM relaxor and meloxicam made her nauseaus. Tylenol and ibuprofen do not help back. Heat helps mroe than ice. Has been given gabapentin but it hasn't worked before. Pain currently intefering at night. Uses a pillow btwn knees. Pt has hx of B TKA and R one the patella fx possibly d/t quad tendn or could have been a pin too long. L TKA was done in November but knee was not resurfaced, so still has pain. R TKA was done about 3.5 years ago. Walks 1-3 miles w/dog in AM and does have pain after. She was reluctant to go back to PT because she had an incident w /inc pain after to do 50 bridges. She used to be extremely active. She knows she let her core go. Neuropathy affects her mostly in bottom of feet and into lower legs. It can be the worst at night. Pt back pain was off/on for several years prior to getting the point of needing surgery. She has been seeing a chiro who does trudy technique in [place] and that has helped her neck a lot. It hasn't helped her back. Treatment Goals Patient/Caregiver Goals Be in less pain and be more mobile, Be able to do yoga, be able to hike more hills and hike longer (get up to 4 miles ), garden/yard work PT-OP-C Subjective Start: 07/10/23 15:50 Freq: Status: Active Protocol: Document 08/15/23 08:59 SP (Rec: 08/15/23 09:54 SP [id number]) OP-PT Subjective Patient Comments Patient Comments Pt reports she was sore after last tx, thinks pressure was to much. She did ok with the resisted hip abd seated but didn't know how many to do without HO look at. PT-OP-D Balance Start: 07/10/23 15:50 Freq: Status: Active Protocol: Document 07/15/23 13:49 [facility] (Rec: 07/15/23 14:33 [facility] [id number]) Balance Tests Single Limb Standing Single Limb- Right 12 sec Single Limb- Left 12 sec PT-OP-F Manual Assessment Start: 07/10/23 15:50 Freq: Status: Active Protocol: Document 07/15/23 13:49 [facility] (Rec: 07/15/23 14:33 [facility] [id number]) Manual Assessments Joint Mobility Assessment Joint Mobility Assessment R iliac crest higher, equal greater trochanters Other Manual Assessments Other Manual Assessments Pt can only squat about 20 deg and painful at that PT-OP-G Mobility & Gait Start: 07/10/23 15:50 Freq: Status: Active Protocol: Document 07/15/23 13:49 [facility] (Rec: 07/15/23 14:33 [facility] [id number]) OP Gait Assessment Comments Gait Comments dec push off B , leans R slightly, dec RLE stance time, add B PT-OP-J Posture/Palpation/Skin Start: 07/10/23 15:50 Freq: Status: Active Protocol: Document 07/15/23 13:49 [facility] (Rec: 07/15/23 14:33 [facility] [id number]) Posture Evaluation [facility] Postural Classification System Marie Postural Classifications Posterior/Posterior Vertebral Compression Test 0 Lumbar Protective Mechanism Left AP 0 Lumbar Protective Mechanism Right AP 0 Lumbar Protective Mechanism Left PA 0 Comments Posture Comments R pelvic shear, rot L, supinated R foot, IR L femur, B knee valgus PT-OP-K Range of Motion Start: 07/10/23 15:50 Freq: Status: Active Protocol: Document 07/15/23 13:49 [facility] (Rec: 07/15/23 14:33 [facility] [id number]) Lumbar Spine Range of Motion Lumbar Spine Active Percentage Flexion 20 Extension 30 Rotation Left 30 Rotation Right 30 Lateral Flexion Left 50 Lateral Flexion Right 50 PT-OP-L Special Tests Start: 07/10/23 15:50 Freq: Status: Active Protocol: Document 07/15/23 13:49 [facility] (Rec: 07/15/23 14:33 [facility] [id number]) Special Tests Lumbar Spine Special Tests Slump Test Results neg for back pain, inc tension on L PT-OP-Q Treatments Start: 07/10/23 15:50 Freq: Status: Active Protocol: Document 08/15/23 08:59 SP (Rec: 08/15/23 09:54 SP [id number]) Therapeutic Exercises Supine Exercises TA KFO Supine Exercise Name added to HEP Side bilateral Reps/Minutes x15 each side Comments min cues for level pelvis during R KFO- little wobbly TA heel slide Supine Exercise Name reviewed HEP Side bilateral Reps/Minutes x15 Comments cued TA -pt to use fingers at spine LTR Supine Exercise Name cues for segmental stability Side bilateral Reps/Minutes 15 ea Comments cued TA fac, hands on hip self feedback Sitting Exercises hip abd Sitting Exercise Name reviewed HEP Side bilateral Resistance Tb x3 [place] [place] Reps/Minutes 5 SH x10 Comments stated side hip muscle tiring, pnfree. Standing Exercises knee mobility step Standing Exercise Name initiated in PT post manual Side right Equipment Used 2nd step Reps/Minutes x10 Comments no pain lat step down Standing Exercise Name initiated in PT Resistance R>L Equipment Used 6 step, rail min support Reps/Minutes 5 reps alterating each side x2 sets Comments cues knee with/behind toes Other Exercises self STMs Other Exercise Name good demo: quad, ITB, manual patellar tendon hands into knee flexion Side bilateral Resistance seated Equipment Used rolling pin quad/ITB Reps/Minutes 2 min total Comments good feedback massage Manual Therapy Treatment Soft Tissue Mobilization lumbar Body Location R ES & QL Mobilization Type Rolling Intensity/Depth Moderate Body Position L SL Comments STMs and w/post dep glutes Body Location R glut med & piriformis Mobilization Type Rolling Intensity/Depth Moderate Body Position L Sidelying Comments w/clamshell scar Body Location L knee Mobilization Type Myofascial Release Intensity/Depth Superficial Body Position Hooklying Comments w/APs patellar tendon-pt taught also in sitting standing during knee mobility use chair. Joint Mobilizations L knee Joint R tibfemoral Direction PA Grade II Comments into FF, discomfort end fell with progressed range, not measured innominate Direction add R Grade II Comments R ilium Ant rot no moving into flexion well. L ilium good mobility. MET R isometric ext 90/90, improved mobility noted into trunk flexion AROM and level pelvis. PT-OP-R Modalities Start: 07/10/23 15:50 Freq: Status: Active Protocol: Document 08/15/23 08:59 SP (Rec: 08/15/23 09:54 SP [id number]) Hot Pack/Cold Pack Treatment MHP LS Patient Position Hooklying Patient Tolerance Good PT-OP-T Assessment and Plan Start: 07/10/23 15:50 Freq: Status: Active Protocol: Document 08/15/23 08:59 SP (Rec: 08/15/23 09:54 SP [id number]) Physical Therapy Assessment Goals posture Ore Puncher Goal (LTG) Pt will score at least 4/5 on VCT to show improved postural stability to allow inc standing/sitting time LTG Duration 10/07 strength Short Term Goal (STG) Pt will be indep w/HEP STG Duration 08/28/23 Residential Goal (LTG) Pt will score at least 3/5 on LPM and at least 4+/5 on B LE MMT to show improved strength to allow pt to do more active activities w/o inc pain LTG Duration 10/09/23 activity Short Term Goal (STG) Pt will be able to start gentle yoga activities w/o inc back pain. STG Duration 08/31 Ore Puncher Goal (LTG) Pt will be able to hike more hills and inc distance to up to 4 miles occasionally w/o significant inc in back pain LTG Duration 10/08/23 ISA Impairment 21/50 Short Term Goal (STG) Pt will improve ISA score to no greater than 15/50 to show improved functional mobility. STG Duration 08/29/23 Ore Puncher Goal (LTG) Pt will improve ISA score to no greater than 8/50 to show improved functional mobility. LTG Duration 10/08/23 Assessment Summary Assessment Pt responded well to manual. Improved TA engagement with HEP review supine and seated hip abd TB. Cues for knee/ trunk alignment and TA level pelvis during lateral steps, improved with anterior knee awareness, will assess if ok for HEP next tx. Physical Therapy Plan Frequency and Duration Frequency of Treatment 1-2x/wk Duration of treatment (weeks) 12 Plan of Care Start Date 07/15/23 Plan of Care End Date 10/08/23 Therapeutic Interventions Therapeutic Interventions Balance Training,Coordination Training,Gait Training,Home Exercise Program,Joint Mobilizations,Manual Therapy, Neuromuscular Re-education, Orthotic/Prosthetic Management ,Patient/Caregiver Education, Self-Care/Home Management,Soft Tissue Mobilization,Taping, Therapeutic Activities, Therapeutic Exercises Modalities Cold Pack/Ice Massage,Electric Stimulation,Hot Packs, Infrared Therapy,Ultrasound Next Visit Focus/Plan Next Note Type Treatment Note Next Visit Plan REcheck lat step down, knee mob. POC: review exercises as needed; manual to improve lumbar, hip and innominate relationship
--- NOTE | 2023-08-18 17:51 | PT.OTN ---
Current Diagnoses Guillain-Bolton syndrome (08/18/23) Pain in right knee (08/18/23) Pain in left knee (08/18/23) Other spondylosis with radiculopathy, lumbosacral region (08/18/23) Spondylosis without myelopathy or radiculopathy, lumbar region (08/18/23) Spinal stenosis, lumbar region without neurogenic claudication (08/18/23) Muscle weakness (generalized) (08/18/23) Difficulty in walking, not elsewhere classified (08/18/23) Abnormal posture (08/18/23) Strain of muscle, fascia and tendon of lower back, initial encounter (08/18/23) Arthrodesis status (08/18/23) Physical Therapy Treatment Note PT-OP-A Visit Information Start: 07/10/23 15:50 Freq: Status: Active Protocol: Document 08/18/23 15:30 [facility] (Rec: 08/18/23 18:10 [facility] [id number]) Out-Patient Physical Therapy Visit Information Visit Information Visit Type Treatment Note Visit Note 11/25 Visit Start Time 15:22 Visit Stop Time 16:12 Visit Number 7 Number of ACTUARY MANAGER Visits 0 PT-OP-B Current Condition Start: 07/10/23 15:50 Freq: Status: Active Protocol: Document 07/15/23 13:49 [facility] (Rec: 07/15/23 14:33 [facility] [id number]) Current Condition History of Current Condition Current Complaints LBP, B knee pain, neuropath History of Current Condition Pt reports in 2016, she had back surgery (L3-5 fusion) and after got guilliane Bolton and took a long time to dx it. She had drop foot but it is better. Has neuropathy in BLEs . Pt has been trouble getting rid of back pain. She saw Dr. Justice a lot. She saw a PA ortho recently and thought possibly one screw is tipped up. Midback pain is newer and not as bad but still painful. PA gave her meloxicam, mm relaxor and a pack of prednisone. She didn't take them d/t them being about to go away. MM relaxor and meloxicam made her nauseaus. Tylenol and ibuprofen do not help back. Heat helps mroe than ice. Has been given gabapentin but it hasn't worked before. Pain currently intefering at night. Uses a pillow btwn knees. Pt has hx of B TKA and R one the patella fx possibly d/t quad tendn or could have been a pin too long. L TKA was done in November but knee was not resurfaced, so still has pain. R TKA was done about 3.5 years ago. Walks 1-3 miles w/dog in AM and does have pain after. She was reluctant to go back to PT because she had an incident w /inc pain after to do 50 bridges. She used to be extremely active. She knows she let her core go. Neuropathy affects her mostly in bottom of feet and into lower legs. It can be the worst at night. Pt back pain was off/on for several years prior to getting the point of needing surgery. She has been seeing a chiro who does trudy technique in [place] and that has helped her neck a lot. It hasn't helped her back. Treatment Goals Patient/Caregiver Goals Be in less pain and be more mobile, Be able to do yoga, be able to hike more hills and hike longer (get up to 4 miles ), garden/yard work PT-OP-C Subjective Start: 07/10/23 15:50 Freq: Status: Active Protocol: Document 08/18/23 15:30 [facility] (Rec: 08/18/23 18:10 [id number]-PT Subjective Patient Comments Patient Comments Pt reports she has trouble lifting LLE into hot tub and has to help it PT-OP-D Balance Start: 07/10/23 15:50 Freq: Status: Active Protocol: Document 07/15/23 13:49 [facility] (Rec: 07/15/23 14:33 [facility] [id number]) Balance Tests Single Limb Standing Single Limb- Right 12 sec Single Limb- Left 12 sec PT-OP-F Manual Assessment Start: 07/10/23 15:50 Freq: Status: Active Protocol: Document 07/15/23 13:49 [facility] (Rec: 07/15/23 14:33 [facility] [id number]) Manual Assessments Joint Mobility Assessment Joint Mobility Assessment R iliac crest higher, equal greater trochanters Other Manual Assessments Other Manual Assessments Pt can only squat about 20 deg and painful at that PT-OP-G Mobility & Gait Start: 07/10/23 15:50 Freq: Status: Active Protocol: Document 07/15/23 13:49 [facility] (Rec: 07/15/23 14:33 [id number] OP Gait Assessment Comments Gait Comments dec push off B , leans R slightly, dec RLE stance time, add B PT-OP-J Posture/Palpation/Skin Start: 07/10/23 15:50 Freq: Status: Active Protocol: Document 07/15/23 13:49 [facility] (Rec: 07/15/23 14:33 [id number] Posture Evaluation [facility] Postural Classification System [facility] Postural Classifications Posterior/Posterior Vertebral Compression Test 0 Lumbar Protective Mechanism Left AP 0 Lumbar Protective Mechanism Right AP 0 Lumbar Protective Mechanism Left PA 0 Comments Posture Comments R pelvic shear, rot L, supinated R foot, IR L femur, B knee valgus PT-OP-K Range of Motion Start: 07/10/23 15:50 Freq: Status: Active Protocol: Document 07/15/23 13:49 [facility] (Rec: 07/15/23 14:33 [id number] Lumbar Spine Range of Motion Lumbar Spine Active Percentage Flexion 20 Extension 30 Rotation Left 30 Rotation Right 30 Lateral Flexion Left 50 Lateral Flexion Right 50 PT-OP-L Special Tests Start: 07/10/23 15:50 Freq: Status: Active Protocol: Document 07/15/23 13:49 [facility] (Rec: 07/15/23 14:33 [id number] Special Tests Lumbar Spine Special Tests Slump Test Results neg for back pain, inc tension on L PT-OP-Q Treatments Start: 07/10/23 15:50 Freq: Status: Active Protocol: Document 08/18/23 15:30 [facility] (Rec: 08/18/23 18:10 [facility] [id number]) Therapeutic Exercises Standing Exercises paloff press Side bilateral Equipment Used peach band Reps/Minutes 12 ea knee mobility step Side left Equipment Used on mat (chair height) Reps/Minutes x10 lat step down Standing Exercise Name cues knees not going med and keep hips level Side bilateral Equipment Used 4 step, rail min support Reps/Minutes 12 ea Comments (attempted 8 in as pt uses at home but too high) Manual Therapy Treatment Soft Tissue Mobilization HS Body Location L Mobilization Type Rolling Intensity/Depth Moderate Body Position Supine Comments w/AAROM hip flex scar Body Location L knee Mobilization Type Myofascial Release Intensity/Depth Superficial Body Position Hooklying Comments w/AAROM flex Joint Mobilizations hip Joint L inf FM Neuro Re-Education Treatment Other Activities PNF Reps/Duration 8 min Comments 1. SL mass flex L for irradiation to L ant elevation pelvis 2. prolonge dholds L pelvis ant elevation w/LE traction 3. supine LLE flex, add, ER pattern prolonged hold PT-OP-R Modalities Start: 07/10/23 15:50 Freq: Status: Active Protocol: Document 08/18/23 15:30 [facility] (Rec: 08/18/23 18:10 [facility] [id number]) Hot Pack/Cold Pack Treatment Cold Pack Location LB & L hip Patient Position Hooklying PT-OP-T Assessment and Plan Start: 07/10/23 15:50 Freq: Status: Active Protocol: Document 08/18/23 15:30 [facility] (Rec: 08/18/23 18:10 [facility] [id number]) Physical Therapy Assessment Goals posture Fpc Goal (LTG) Pt will score at least 4/5 on VCT to show improved postural stability to allow inc standing/sitting time LTG Duration 10/07 strength Short Term Goal (STG) Pt will be indep w/HEP STG Duration 08/28/23 Fpc Goal (LTG) Pt will score at least 3/5 on LPM and at least 4+/5 on B LE MMT to show improved strength to allow pt to do more active activities w/o inc pain LTG Duration 10/09/23 activity Short Term Goal (STG) Pt will be able to start gentle yoga activities w/o inc back pain. STG Duration 08/31 Fpc Goal (LTG) Pt will be able to hike more hills and inc distance to up to 4 miles occasionally w/o significant inc in back pain LTG Duration 10/08/23 ISA Impairment 21/50 Short Term Goal (STG) Pt will improve ISA score to no greater than 15/50 to show improved functional mobility. STG Duration 08/29/23 Fpc Goal (LTG) Pt will improve ISA score to no greater than 8/50 to show improved functional mobility. LTG Duration 10/08/23 Assessment Summary Assessment Pt has limited L knee and hip ROM that dec ability to get in /out of hot tub and likely affects her sitting position and any other lg steps. She did well with mobilization and had some inc in flex or hip and knee after. She has signfiicantly dec core stability w/LLE activity that contributes to this weakenss and dec stability Physical Therapy Plan Frequency and Duration Frequency of Treatment 1-2x/wk Duration of treatment (weeks) 12 Plan of Care Start Date 07/15/23 Plan of Care End Date 10/08/23 Next Visit Focus/Plan Next Note Type Treatment Note Next Visit Plan REcheck lat step down POC: review exercises as needed; manual to improve lumbar, hip and innominate relationship
--- NOTE | 2023-08-25 11:21 | PT.OTN ---
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) Pain in right knee (08/25/23) Pain in left knee (08/25/23) Other spondylosis with radiculopathy, lumbosacral region (08/25/23) Spondylosis without myelopathy or radiculopathy, lumbar region (08/25/23) Spinal stenosis, lumbar region without neurogenic claudication (08/25/23) Muscle weakness (generalized) (08/25/23) Difficulty in walking, not elsewhere classified (08/25/23) Abnormal posture (08/25/23) Strain of muscle, fascia and tendon of lower back, initial encounter (08/25/23) Arthrodesis status (08/25/23) Physical Therapy Treatment Note PT-OP-A Visit Information Start: 07/10/23 15:50 Freq: Status: Active Protocol: Document 08/25/23 09:47 [facility] (Rec: 08/25/23 11:21 [facility] [id number]) Out-Patient Physical Therapy Visit Information Visit Information Visit Type Treatment Note Visit Note 12/26 Visit Start Time 09:48 Visit Stop Time 10:40 Visit Number 8 Number of COUNTER STACKER Visits 0 PT-OP-B Current Condition Start: 07/10/23 15:50 Freq: Status: Active Protocol: Document 07/15/23 13:49 [facility] (Rec: 07/15/23 14:33 [facility] [id number]) Current Condition History of Current Condition Current Complaints LBP, B knee pain, neuropath History of Current Condition Pt reports in 2016, she had back surgery (L3-5 fusion) and after got guilliane [place] and took a long time to dx it. She had drop foot but it is better. Has neuropathy in BLEs . Pt has been trouble getting rid of back pain. She saw Dr. Justice a lot. She saw a PA ortho recently and thought possibly one screw is tipped up. Midback pain is newer and not as bad but still painful. PA gave her meloxicam, mm relaxor and a pack of prednisone. She didn't take them d/t them being about to go away. MM relaxor and meloxicam made her nauseaus. Tylenol and ibuprofen do not help back. Heat helps mroe than ice. Has been given gabapentin but it hasn't worked before. Pain currently intefering at night. Uses a pillow btwn knees. Pt has hx of B TKA and R one the patella fx possibly d/t quad tendn or could have been a pin too long. L TKA was done in November but knee was not resurfaced, so still has pain. R TKA was done about 3.5 years ago. Walks 1-3 miles w/dog in AM and does have pain after. She was reluctant to go back to PT because she had an incident w /inc pain after to do 50 bridges. She used to be extremely active. She knows she let her core go. Neuropathy affects her mostly in bottom of feet and into lower legs. It can be the worst at night. Pt back pain was off/on for several years prior to getting the point of needing surgery. She has been seeing a chiro who does trudy technique in [place] and that has helped her neck a lot. It hasn't helped her back. Treatment Goals Patient/Caregiver Goals Be in less pain and be more mobile, Be able to do yoga, be able to hike more hills and hike longer (get up to 4 miles ), garden/yard work PT-OP-C Subjective Start: 07/10/23 15:50 Freq: Status: Active Protocol: Document 08/25/23 09:47 [facility] (Rec: 08/25/23 11:21 [facility] [id number]) OP-PT Subjective Patient Comments Patient Comments Pt reports she feels like back may be a little better PT-OP-D Balance Start: 07/10/23 15:50 Freq: Status: Active Protocol: Document 07/15/23 13:49 [facility] (Rec: 07/15/23 14:33 [facility] [id number]) Balance Tests Single Limb Standing Single Limb- Right 12 sec Single Limb- Left 12 sec PT-OP-F Manual Assessment Start: 07/10/23 15:50 Freq: Status: Active Protocol: Document 07/15/23 13:49 [facility] (Rec: 07/15/23 14:33 [facility] [id number]) Manual Assessments Joint Mobility Assessment Joint Mobility Assessment R iliac crest higher, equal greater trochanters Other Manual Assessments Other Manual Assessments Pt can only squat about 20 deg and painful at that PT-OP-G Mobility & Gait Start: 07/10/23 15:50 Freq: Status: Active Protocol: Document 07/15/23 13:49 [facility] (Rec: 07/15/23 14:33 [facility] [id number]) OP Gait Assessment Comments Gait Comments dec push off B , leans R slightly, dec RLE stance time, add B PT-OP-J Posture/Palpation/Skin Start: 07/10/23 15:50 Freq: Status: Active Protocol: Document 07/15/23 13:49 [facility] (Rec: 07/15/23 14:33 [facility] [id number]) Posture Evaluation [facility] Postural Classification System [facility] Postural Classifications Posterior/Posterior Vertebral Compression Test 0 Lumbar Protective Mechanism Left AP 0 Lumbar Protective Mechanism Right AP 0 Lumbar Protective Mechanism Left PA 0 Comments Posture Comments R pelvic shear, rot L, supinated R foot, IR L femur, B knee valgus PT-OP-K Range of Motion Start: 07/10/23 15:50 Freq: Status: Active Protocol: Document 07/15/23 13:49 [facility] (Rec: 07/15/23 14:33 [facility] [id number]) Lumbar Spine Range of Motion Lumbar Spine Active Percentage Flexion 20 Extension 30 Rotation Left 30 Rotation Right 30 Lateral Flexion Left 50 Lateral Flexion Right 50 PT-OP-L Special Tests Start: 07/10/23 15:50 Freq: Status: Active Protocol: Document 07/15/23 13:49 [facility] (Rec: 07/15/23 14:33 [facility] [id number]) Special Tests Lumbar Spine Special Tests Slump Test Results neg for back pain, inc tension on L PT-OP-Q Treatments Start: 07/10/23 15:50 Freq: Status: Active Protocol: Document 08/25/23 09:47 [facility] (Rec: 08/25/23 11:21 [facility] [id number]) Therapeutic Exercises Standing Exercises hip hinge Equipment Used pt holding dowel on back 2. PT holding dowel Reps/Minutes 10 ea sidestep Standing Exercise Name 1.lat step 2. mini squat lat step Side bilateral Equipment Used L2 at knees Reps/Minutes 15ft ea Comments max cues w/hip hinge paloff press Side bilateral Equipment Used orange band Reps/Minutes 12 ea lat step down Standing Exercise Name cues knees not going med and keep hips level Side bilateral Equipment Used 4 step,6 in step rail min support Reps/Minutes 8 ea Manual Therapy Treatment Soft Tissue Mobilization lumbar Body Location B ES Mobilization Type Rolling Intensity/Depth Moderate Body Position Sitting Comments w/pelvic tilts R hip flexor Body Location B hip flexor (R>L Mobilization Type Sustained Pressure Intensity/Depth Moderate Body Position Supine Comments AAROM hip flex PT-OP-R Modalities Start: 07/10/23 15:50 Freq: Status: Active Protocol: Document 08/25/23 09:47 [facility] (Rec: 08/25/23 11:21 [facility] [id number]) Hot Pack/Cold Pack Treatment Cold Pack Location LB Patient Position Hooklying PT-OP-T Assessment and Plan Start: 07/10/23 15:50 Freq: Status: Active Protocol: Document 08/25/23 09:47 [facility] (Rec: 08/25/23 11:21 [facility] [id number]) Physical Therapy Assessment Goals posture Fpc Goal (LTG) Pt will score at least 4/5 on VCT to show improved postural stability to allow inc standing/sitting time LTG Duration 10/07 strength Short Term Goal (STG) Pt will be indep w/HEP STG Duration 08/28/23 Refrigeration Lead Goal (LTG) Pt will score at least 3/5 on LPM and at least 4+/5 on B LE MMT to show improved strength to allow pt to do more active activities w/o inc pain LTG Duration 10/09/23 activity Short Term Goal (STG) Pt will be able to start gentle yoga activities w/o inc back pain. STG Duration 08/31 Fpc Goal (LTG) Pt will be able to hike more hills and inc distance to up to 4 miles occasionally w/o significant inc in back pain LTG Duration 10/08/23 ISA Impairment 21/50 Short Term Goal (STG) Pt will improve ISA score to no greater than 15/50 to show improved functional mobility. STG Duration 08/29/23 Fpc Goal (LTG) Pt will improve ISA score to no greater than 8/50 to show improved functional mobility. LTG Duration 10/08/23 Assessment Summary Assessment pt had much improved performance w/lat step downs and paloff press. She struggled w/sidestep when asked to be in mini squat as tended to ext back. Cont ot lack mobilityt o get into neutral spine position and when goes into squat, tends to go into lumbar ext Physical Therapy Plan Frequency and Duration Frequency of Treatment 1-2x/wk Duration of treatment (weeks) 12 Plan of Care Start Date 07/15/23 Plan of Care End Date 10/08/23 Next Visit Focus/Plan Next Note Type Treatment Note Next Visit Plan cont to work on hip abd engagement. manual to improve lumbar, hip and innominate relationship
--- NOTE | 2023-08-27 12:25 | PT.OTN ---
Current Diagnoses Guillain-[place] syndrome (08/27/23) Pain in right knee (08/27/23) Pain in left knee (08/27/23) Other spondylosis with radiculopathy, lumbosacral region (08/27/23) Spondylosis without myelopathy or radiculopathy, lumbar region (08/27/23) Spinal stenosis, lumbar region without neurogenic claudication (08/27/23) Muscle weakness (generalized) (08/27/23) Difficulty in walking, not elsewhere classified (08/27/23) Abnormal posture (08/27/23) Strain of muscle, fascia and tendon of lower back, initial encounter (08/27/23) Arthrodesis status (08/27/23) Physical Therapy Treatment Note PT-OP-A Visit Information Start: 07/10/23 15:50 Freq: Status: Active Protocol: Document 08/27/23 09:51 [facility] (Rec: 08/27/23 12:24 [facility] [id number]) Out-Patient Physical Therapy Visit Information Visit Information Visit Type Treatment Note Visit Note 01/26 Visit Start Time 09:51 Visit Stop Time 10:41 Visit Number 9 Number of CHIEF CLERK Visits 0 PT-OP-B Current Condition Start: 07/10/23 15:50 Freq: Status: Active Protocol: Document 07/15/23 13:49 [facility] (Rec: 07/15/23 14:33 [facility] [id number]) Current Condition History of Current Condition Current Complaints LBP, B knee pain, neuropath History of Current Condition Pt reports in 2016, she had back surgery (L3-5 fusion) and after got guilliane [place] and took a long time to dx it. She had drop foot but it is better. Has neuropathy in BLEs . Pt has been trouble getting rid of back pain. She saw Dr. Justice a lot. She saw a PA ortho recently and thought possibly one screw is tipped up. Midback pain is newer and not as bad but still painful. PA gave her meloxicam, mm relaxor and a pack of prednisone. She didn't take them d/t them being about to go away. MM relaxor and meloxicam made her nauseaus. Tylenol and ibuprofen do not help back. Heat helps mroe than ice. Has been given gabapentin but it hasn't worked before. Pain currently intefering at night. Uses a pillow btwn knees. Pt has hx of B TKA and R one the patella fx possibly d/t quad tendn or could have been a pin too long. L TKA was done in November but knee was not resurfaced, so still has pain. R TKA was done about 3.5 years ago. Walks 1-3 miles w/dog in AM and does have pain after. She was reluctant to go back to PT because she had an incident w /inc pain after to do 50 bridges. She used to be extremely active. She knows she let her core go. Neuropathy affects her mostly in bottom of feet and into lower legs. It can be the worst at night. Pt back pain was off/on for several years prior to getting the point of needing surgery. She has been seeing a chiro who does trudy technique in [place] and that has helped her neck a lot. It hasn't helped her back. Treatment Goals Patient/Caregiver Goals Be in less pain and be more mobile, Be able to do yoga, be able to hike more hills and hike longer (get up to 4 miles ), garden/yard work PT-OP-C Subjective Start: 07/10/23 15:50 Freq: Status: Active Protocol: Document 08/27/23 09:51 [facility] (Rec: 08/27/23 12:24 [facility] [id number]) OP-PT Subjective Patient Comments Patient Comments Pt reports still trying to work on posture PT-OP-D Balance Start: 07/10/23 15:50 Freq: Status: Active Protocol: Document 07/15/23 13:49 [facility] (Rec: 07/15/23 14:33 [facility] [id number]) Balance Tests Single Limb Standing Single Limb- Right 12 sec Single Limb- Left 12 sec PT-OP-F Manual Assessment Start: 07/10/23 15:50 Freq: Status: Active Protocol: Document 07/15/23 13:49 [facility] ([facility]15[facility]23 [id number] Manual Assessments Joint Mobility Assessment Joint Mobility Assessment R iliac crest higher, equal greater trochanters Other Manual Assessments Other Manual Assessments Pt can only squat about 20 deg and painful at that PT-OP-G Mobility & Gait Start: 07/10/23 15:50 Freq: Status: Active Protocol: Document 07/15/23 13:49 [facility] (Rec: 07/15/23 14:33 [id number] OP Gait Assessment Comments Gait Comments dec push off B , leans R slightly, dec RLE stance time, add B PT-OP-J Posture/Palpation/Skin Start: 07/10/23 15:50 Freq: Status: Active Protocol: Document 07/15/23 13:49 [facility] (Rec: 07/15/23 14:33 [id number] Posture Evaluation [facility] Postural Classification System [facility] Postural Classifications Posterior/Posterior Vertebral Compression Test 0 Lumbar Protective Mechanism Left AP 0 Lumbar Protective Mechanism Right AP 0 Lumbar Protective Mechanism Left PA 0 Comments Posture Comments R pelvic shear, rot L, supinated R foot, IR L femur, B knee valgus PT-OP-K Range of Motion Start: 07/10/23 15:50 Freq: Status: Active Protocol: Document 07/15/23 13:49 [facility] (Rec: 07/15/23 14:33 [id number] Lumbar Spine Range of Motion Lumbar Spine Active Percentage Flexion 20 Extension 30 Rotation Left 30 Rotation Right 30 Lateral Flexion Left 50 Lateral Flexion Right 50 PT-OP-L Special Tests Start: 07/10/23 15:50 Freq: Status: Active Protocol: Document 07/15/23 13:49 [facility] (Rec: 07/15/23 14:33 [id number] Special Tests Lumbar Spine Special Tests Slump Test Results neg for back pain, inc tension on L PT-OP-Q Treatments Start: 07/10/23 15:50 Freq: Status: Active Protocol: Document 08/27/23 09:51 [facility] (Rec: 08/27/23 12:24 [facility] [id number]) Therapeutic Activity Therapeutic Activity squat Comments hip hinge x10 w/bar squat [id number] hip hinge ( partial) posture Reps/Minutes 13 min Comments working on neutral tspine and lumbar spine (cues for relax back and tspine alignment)-use of VCT and EFT Manual Therapy Treatment Soft Tissue Mobilization lumbar Body Location B ES Mobilization Type Myofascial Release,Rolling Intensity/Depth Moderate Body Position Sitting Comments w/pelvic tilts & flex Joint Mobilizations sacrum Joint R caudal w/pelvic tilts innominate Joint R add FM PT-OP-R Modalities Start: 07/10/23 15:50 Freq: Status: Active Protocol: Document 08/27/23 09:51 [facility] (Rec: 08/27/23 12:24 [facility] [id number]) Hot Pack/Cold Pack Treatment Cold Pack Location LB Patient Position Hooklying PT-OP-T Assessment and Plan Start: 07/10/23 15:50 Freq: Status: Active Protocol: Document 08/27/23 09:51 [facility] (Rec: 08/27/23 12:24 [facility] [id number]) Physical Therapy Assessment Goals posture Bank Worker Goal (LTG) Pt will score at least 4/5 on VCT to show improved postural stability to allow inc standing/sitting time LTG Duration 10/07 strength Short Term Goal (STG) Pt will be indep w/HEP STG Duration 08/28/23 Group Home Goal (LTG) Pt will score at least 3/5 on LPM and at least 4+/5 on B LE MMT to show improved strength to allow pt to do more active activities w/o inc pain LTG Duration 10/09/23 activity Short Term Goal (STG) Pt will be able to start gentle yoga activities w/o inc back pain. STG Duration 08/31 Group Home Goal (LTG) Pt will be able to hike more hills and inc distance to up to 4 miles occasionally w/o significant inc in back pain LTG Duration 10/08/23 ISA Impairment 21/50 Short Term Goal (STG) Pt will improve ISA score to no greater than 15/50 to show improved functional mobility. STG Duration 08/29/23 Bank Worker Goal (LTG) Pt will improve ISA score to no greater than 8/50 to show improved functional mobility. LTG Duration 10/08/23 Assessment Summary Assessment Pt shown how stronger and dec tension in back is w/ appropriate posture w/VCT and EFT. She had improved position after education. She does have inc tension in lumbar region R>L that inc w/flex Physical Therapy Plan Frequency and Duration Frequency of Treatment 1-2x/wk Duration of treatment (weeks) 12 Plan of Care Start Date 07/15/23 Plan of Care End Date 10/08/23 Next Visit Focus/Plan Next Note Type Progress Note Next Visit Plan cont to work on hip abd engagement. manual to improve lumbar, hip and innominate relationship
--- NOTE | 2023-09-01 12:27 | PT.OTN ---
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) Pain in right knee (09/01/23) Pain in left knee (09/01/23) Other spondylosis with radiculopathy, lumbosacral region (09/01/23) Spondylosis without myelopathy or radiculopathy, lumbar region (09/01/23) Spinal stenosis, lumbar region without neurogenic claudication (09/01/23) Muscle weakness (generalized) (09/01/23) Difficulty in walking, not elsewhere classified (09/01/23) Abnormal posture (09/01/23) Strain of muscle, fascia and tendon of lower back, initial encounter (09/01/23) Arthrodesis status (09/01/23) Physical Therapy Treatment Note PT-OP-A Visit Information Start: 07/10/23 15:50 Freq: Status: Active Protocol: Document 09/01/23 09:24 [facility] (Rec: 09/01/23 12:27 [facility] [id number]) Out-Patient Physical Therapy Visit Information Visit Information Visit Type Progress Note Visit Note 05/28 Visit Start Time 09:49 Visit Stop Time 10:36 Visit Number 10 Number of FIRE PROTECTION SPECIALIST Visits 0 PT-OP-B Current Condition Start: 07/10/23 15:50 Freq: Status: Active Protocol: Document 07/15/23 13:49 [facility] (Rec: 07/15/23 14:33 [facility] [id number]) Current Condition History of Current Condition Current Complaints LBP, B knee pain, neuropath History of Current Condition Pt reports in 2016, she had back surgery (L3-5 fusion) and after got guilliane [place] and took a long time to dx it. She had drop foot but it is better. Has neuropathy in BLEs . Pt has been trouble getting rid of back pain. She saw Dr. Justice a lot. She saw a PA ortho recently and thought possibly one screw is tipped up. Midback pain is newer and not as bad but still painful. PA gave her meloxicam, mm relaxor and a pack of prednisone. She didn't take them d/t them being about to go away. MM relaxor and meloxicam made her nauseaus. Tylenol and ibuprofen do not help back. Heat helps mroe than ice. Has been given gabapentin but it hasn't worked before. Pain currently intefering at night. Uses a pillow btwn knees. Pt has hx of B TKA and R one the patella fx possibly d/t quad tendn or could have been a pin too long. L TKA was done in November but knee was not resurfaced, so still has pain. R TKA was done about 3.5 years ago. Walks 1-3 miles w/dog in AM and does have pain after. She was reluctant to go back to PT because she had an incident w /inc pain after to do 50 bridges. She used to be extremely active. She knows she let her core go. Neuropathy affects her mostly in bottom of feet and into lower legs. It can be the worst at night. Pt back pain was off/on for several years prior to getting the point of needing surgery. She has been seeing a chiro who does trudy technique in [place] and that has helped her neck a lot. It hasn't helped her back. Treatment Goals Patient/Caregiver Goals Be in less pain and be more mobile, Be able to do yoga, be able to hike more hills and hike longer (get up to 4 miles ), garden/yard work PT-OP-C Subjective Start: 07/10/23 15:50 Freq: Status: Active Protocol: Document 09/01/23 09:24 [facility] (Rec: 09/01/23 12:27 [facility] [id number]) OP-PT Subjective Patient Comments Patient Comments Pt worked in the garden a lot of sat and took tylenol after. It was a lot of bending. Patient Questionnaires Oswestry Low Back Index Oswestry Score 17/50 PT-OP-D Balance Start: 07/10/23 15:50 Freq: Status: Active Protocol: Document 07/15/23 13:49 [facility] (Rec: 07/15/23 14:33 [facility] [id number]) Balance Tests Single Limb Standing Single Limb- Right 12 sec Single Limb- Left 12 sec PT-OP-F Manual Assessment Start: 07/10/23 15:50 Freq: Status: Active Protocol: Document 07/15/23 13:49 [facility] (Rec: 07/15/23 14:33 [facility] [id number]) Manual Assessments Joint Mobility Assessment Joint Mobility Assessment R iliac crest higher, equal greater trochanters Other Manual Assessments Other Manual Assessments Pt can only squat about 20 deg and painful at that PT-OP-G Mobility & Gait Start: 07/10/23 15:50 Freq: Status: Active Protocol: Document 07/15/23 13:49 [facility] (Rec: 07/15/23 14:33 [id number] OP Gait Assessment Comments Gait Comments dec push off B , leans R slightly, dec RLE stance time, add B PT-OP-J Posture/Palpation/Skin Start: 07/10/23 15:50 Freq: Status: Active Protocol: Document 09/01/23 09:24 [facility] (Rec: 09/01/23 12:27 [id number] Posture Evaluation [facility] Postural Classification System Vertebral Compression Test 2 Lumbar Protective Mechanism Left AP 0 Lumbar Protective Mechanism Right AP 0 Lumbar Protective Mechanism Left PA 0 PT-OP-K Range of Motion Start: 07/10/23 15:50 Freq: Status: Active Protocol: Document 07/15/23 13:49 [facility] (Rec: 07/15/23 14:33 [facility] [id number]) Lumbar Spine Range of Motion Lumbar Spine Active Percentage Flexion 20 Extension 30 Rotation Left 30 Rotation Right 30 Lateral Flexion Left 50 Lateral Flexion Right 50 PT-OP-L Special Tests Start: 07/10/23 15:50 Freq: Status: Active Protocol: Document 07/15/23 13:49 [facility] (Rec: 07/15/23 14:33 [id number] Special Tests Lumbar Spine Special Tests Slump Test Results neg for back pain, inc tension on L PT-OP-M Strength Start: 07/10/23 15:50 Freq: Status: Active Protocol: Document 09/01/23 09:24 [facility] (Rec: 09/01/23 12:27 [facility] [id number]) Hip Strength Hip Manual Muscle Testing Right Flexion (L2) 4- Good- External Rotation 4- Good- Internal Rotation 4- Good- Left Flexion (L2) 3+ Fair+ External Rotation 4 Good Internal Rotation 5 Normal Knee Strength Knee Manual Muscle Testing Right Flexion (S2) 5 Normal Extension (L3) 5 Normal Left Flexion (S2) 5 Normal Extension (L3) 4+ Good+ Ankle/Foot Strength Ankle and Foot Manual Muscle Testing Right Dorsiflexion (L4) 4- Good- Left Dorsiflexion (L4) 5 Normal PT-OP-Q Treatments Start: 07/10/23 15:50 Freq: Status: Active Protocol: Document 09/01/23 09:24 [facility] (Rec: 09/01/23 12:27 [facility] [id number]) Therapeutic Exercises Sidelying Exercises clamshell Side bilateral Equipment Used w/ and w/o L1 band Reps/Minutes 10 ea Standing Exercises paloff press Standing Exercise Name in staggered stance Side bilateral Reps/Minutes 10 ea position Other Exercises isometrics Other Exercise Name LE MMT , LPM, VCT Side bilateral Manual Therapy Treatment Soft Tissue Mobilization lumbar Body Location R along SI and multifidi R sacrum Mobilization Type Myofascial Release,Rolling Intensity/Depth Moderate Body Position Hooklying Joint Mobilizations innominate Joint R IR w/AROM hip IR/ER Body Position Hooklying Self-Care/Home Management Treatment Education Other Education 13 min: discussion on how arthritis can happen faster on non painful side d/t movement auto garage mechanic changes and likely why she has been told she has L hip OA. quick edu on lateralizationand discussed trying circling L knees in a magazine but only giving self a couple of seconds to react to choose then go back to see how many she got correct. Edu on improvement and d/t mult issues at this time, not to get discouraged as she is progressing. PT-OP-R Modalities Start: 07/10/23 15:50 Freq: Status: Active Protocol: Document 08/27/23 09:51 [facility] (Rec: 08/27/23 12:24 [facility] [id number]) Hot Pack/Cold Pack Treatment Cold Pack Location LB Patient Position Hooklying PT-OP-T Assessment and Plan Start: 07/10/23 15:50 Freq: Status: Active Protocol: Document 09/01/23 09:24 [facility] (Rec: 09/01/23 12:27 [facility] [id number]) Physical Therapy Assessment Goals posture Care Home Goal (LTG) Pt will score at least 4/5 on VCT to show improved postural stability to allow inc standing/sitting time 08/31-2/5 LTG Duration 10/07 strength Short Term Goal (STG) Pt will be indep w/HEP STG Duration 08/28/23 Care Home Goal (LTG) Pt will score at least 3/5 on LPM and at least 4+/5 on B LE MMT to show improved strength to allow pt to do more active activities w/o inc pain 08/31-improved LTG Duration 10/09/23 activity Short Term Goal (STG) Pt will be able to start gentle yoga activities w/o inc back pain. 08/31-has not started by tried evelyne chi STG Duration 08/31 Care Home Goal (LTG) Pt will be able to hike more hills and inc distance to up to 4 miles occasionally w/o significant inc in back pain 08/31-has started small hills and has done some days of 4 mile hikes but slowly progressing w/this LTG Duration 10/08/23 ISA Impairment Short Term Goal (STG) Pt will improve ISA score to no greater than 15/50 to show improved functional mobility. 08/31- improved STG Duration 08/29/23 Video Control Engineer Goal (LTG) Pt will improve ISA score to no greater than 8/50 to show improved functional mobility. LTG Duration 10/08/23 Assessment Summary Assessment Pt is making progress w/ PT and is showing improved core initiation and strength, improved posture and improved functional ability as noted w/ gait. She cont to have B knee and hip restrictions that affect her mobility. She did have pain after s/l hip abd MMT w/roll to sit up that did improve w/walkinga round. Difficulty rolling noted today . Cont PT to work on functionala bility. Physical Therapy Plan Frequency and Duration Frequency of Treatment 1-2x/wk Duration of treatment (weeks) 12 Plan of Care Start Date 07/15/23 Plan of Care End Date 10/08/23 Therapeutic Interventions Therapeutic Interventions Balance Training,Coordination Training,Gait Training,Home Exercise Program,Joint Mobilizations,Manual Therapy, Neuromuscular Re-education, Orthotic/Prosthetic Management ,Patient/Caregiver Education, Self-Care/Home Management,Soft Tissue Mobilization,Taping, Therapeutic Activities, Therapeutic Exercises Modalities Cold Pack/Ice Massage,Electric Stimulation,Hot Packs, Infrared Therapy,Ultrasound Next Visit Focus/Plan Next Note Type Treatment Note Next Visit Plan cont to work on hip abd engagement. manual to improve lumbar, hip and innominate relationship PNF for rolling
--- NOTE | 2023-09-08 10:38 | PT.OTN ---
Current Diagnoses Guillain-[place] syndrome (09/08/23) Pain in right knee (09/08/23) Pain in left knee (09/08/23) Other spondylosis with radiculopathy, lumbosacral region (09/08/23) Spondylosis without myelopathy or radiculopathy, lumbar region (09/08/23) Spinal stenosis, lumbar region without neurogenic claudication (09/08/23) Muscle weakness (generalized) (09/08/23) Difficulty in walking, not elsewhere classified (09/08/23) Abnormal posture (09/08/23) Strain of muscle, fascia and tendon of lower back, initial encounter (09/08/23) Arthrodesis status (09/08/23) Physical Therapy Treatment Note PT-OP-A Visit Information Start: 07/10/23 15:50 Freq: Status: Active Protocol: Document 09/08/23 09:50 [facility] (Rec: 09/08/23 10:36 [facility] [id number]) Out-Patient Physical Therapy Visit Information Visit Information Visit Type Treatment Note Visit Note 06/28 Visit Start Time 09:50 Visit Stop Time 10:38 Visit Number 11 Number of VICE [employer]IDENT [employer] Visits 1 PT-OP-B Current Condition Start: 07/10/23 15:50 Freq: Status: Active Protocol: Document 07/15/23 13:49 [facility] (Rec: 07/15/23 14:33 [facility] [id number]) Current Condition History of Current Condition Current Complaints LBP, B knee pain, neuropath History of Current Condition Pt reports in 2016, she had back surgery (L3-5 fusion) and after got guilliane [place] and took a long time to dx it. She had drop foot but it is better. Has neuropathy in BLEs . Pt has been trouble getting rid of back pain. She saw Dr. Justice a lot. She saw a PA ortho recently and thought possibly one screw is tipped up. Midback pain is newer and not as bad but still painful. PA gave her meloxicam, mm relaxor and a pack of prednisone. She didn't take them d/t them being about to go away. MM relaxor and meloxicam made her nauseaus. Tylenol and ibuprofen do not help back. Heat helps mroe than ice. Has been given gabapentin but it hasn't worked before. Pain currently intefering at night. Uses a pillow btwn knees. Pt has hx of B TKA and R one the patella fx possibly d/t quad tendn or could have been a pin too long. L TKA was done in November but knee was not resurfaced, so still has pain. R TKA was done about 3.5 years ago. Walks 1-3 miles w/dog in AM and does have pain after. She was reluctant to go back to PT because she had an incident w /inc pain after to do 50 bridges. She used to be extremely active. She knows she let her core go. Neuropathy affects her mostly in bottom of feet and into lower legs. It can be the worst at night. Pt back pain was off/on for several years prior to getting the point of needing surgery. She has been seeing a chiro who does trudy technique in [place] and that has helped her neck a lot. It hasn't helped her back. Treatment Goals Patient/Caregiver Goals Be in less pain and be more mobile, Be able to do yoga, be able to hike more hills and hike longer (get up to 4 miles ), garden/yard work PT-OP-C Subjective Start: 07/10/23 15:50 Freq: Status: Active Protocol: Document 09/08/23 09:50 [facility] (Rec: 09/08/23 10:36 [facility] [id number]) OP-PT Subjective Patient Comments Patient Comments Pt reports the manual pushing down on R hip when hiked it up last tx was to much, back hurting rest of the week since with hard time coming to standing. She reports compliant with HEP, still hurts to descend LLE stance LE and scooting fwd chair to gain more ROM in L knee. SHe is thinking of getting 3rd opinion. PT-OP-D Balance Start: 07/10/23 15:50 Freq: Status: Active Protocol: Document 07/15/23 13:49 [facility] (Rec: 07/15/23 14:33 [facility] [id number]) Balance Tests Single Limb Standing Single Limb- Right 12 sec Single Limb- Left 12 sec PT-OP-F Manual Assessment Start: 07/10/23 15:50 Freq: Status: Active Protocol: Document 07/15/23 13:49 [facility] (Rec: 07/15/23 14:33 [facility] [id number]) Manual Assessments Joint Mobility Assessment Joint Mobility Assessment R iliac crest higher, equal greater trochanters Other Manual Assessments Other Manual Assessments Pt can only squat about 20 deg and painful at that PT-OP-G Mobility & Gait Start: 07/10/23 15:50 Freq: Status: Active Protocol: Document 07/15/23 13:49 [facility] (Rec: 07/15/23 14:33 [facility] [id number]) OP Gait Assessment Comments Gait Comments dec push off B , leans R slightly, dec RLE stance time, add B PT-OP-J Posture/Palpation/Skin Start: 07/10/23 15:50 Freq: Status: Active Protocol: Document 09/01/23 09:24 [facility] (Rec: 09/01/23 12:27 [facility] [id number]) Posture Evaluation [facility] Postural Classification System Vertebral Compression Test 2 Lumbar Protective Mechanism Left AP 0 Lumbar Protective Mechanism Right AP 0 Lumbar Protective Mechanism Left PA 0 PT-OP-K Range of Motion Start: 07/10/23 15:50 Freq: Status: Active Protocol: Document 07/15/23 13:49 [facility] (Rec: 07/15/23 14:33 [facility] [id number]) Lumbar Spine Range of Motion Lumbar Spine Active Percentage Flexion 20 Extension 30 Rotation Left 30 Rotation Right 30 Lateral Flexion Left 50 Lateral Flexion Right 50 PT-OP-L Special Tests Start: 07/10/23 15:50 Freq: Status: Active Protocol: Document 07/15/23 13:49 [facility] (Rec: 07/15/23 14:33 [facility] [id number]) Special Tests Lumbar Spine Special Tests Slump Test Results neg for back pain, inc tension on L PT-OP-M Strength Start: 07/10/23 15:50 Freq: Status: Active Protocol: Document 09/01/23 09:24 [facility] (Rec: 09/01/23 12:27 [facility] [id number]) Hip Strength Hip Manual Muscle Testing Right Flexion (L2) 4- Good- External Rotation 4- Good- Internal Rotation 4- Good- Left Flexion (L2) 3+ Fair+ External Rotation 4 Good Internal Rotation 5 Normal Knee Strength Knee Manual Muscle Testing Right Flexion (S2) 5 Normal Extension (L3) 5 Normal Left Flexion (S2) 5 Normal Extension (L3) 4+ Good+ Ankle/Foot Strength Ankle and Foot Manual Muscle Testing Right Dorsiflexion (L4) 4- Good- Left Dorsiflexion (L4) 5 Normal PT-OP-Q Treatments Start: 07/10/23 15:50 Freq: Status: Active Protocol: Document 09/08/23 09:50 [facility] (Rec: 09/08/23 10:36 [facility] [id number]) Therapeutic Exercises Supine Exercises TA heel slide Supine Exercise Name reviewed HEP Side bilateral Reps/Minutes x15 TA, then AROM for L knee 3 reps hold for AAROM 121 deg Comments cued TA -pt to use fingers at spine Sitting Exercises STS Sitting Exercise Name change to body shop technician squat Equipment Used miner pick timer onfloor (like gardening) Reps/Minutes 2x5 reps Comments reduced pain than sit stands- Standing Exercises paloff press Comments Discussed Continue HEP lat step down Comments discussed continue HEP Manual Therapy Treatment Soft Tissue Mobilization lumbar Body Location R along SI and multifidi R sacrum, QL Mobilization Type Myofascial Release,Rolling, Sustained Pressure,Other Intensity/Depth Moderate Body Position Hooklying Comments STMs, MWM hip hiking over QL scar Body Location L knee Mobilization Type Instrument Assisted,Myofascial Release Intensity/Depth Superficial Body Position Hooklying Comments w/AAROM flex cupping, tooling, ed can do self home. Purchased small plunger but states liked the large cup better, able to get over surface more effectively and good MF gliding. Joint Mobilizations L knee Joint L tibfemoral Direction PA Grade II Comments into FF, discomfort end fell with progressed range, 121 deg but better range than reported last tx. hip Joint R Direction caudal direction depression QL stretch Grade III Body Position L SL Comments good feedback stretch post manual STMs PT-OP-R Modalities Start: 07/10/23 15:50 Freq: Status: Active Protocol: Document 09/08/23 09:50 [facility] (Rec: 09/08/23 10:36 SP [id number]) Hot Pack/Cold Pack Treatment Cold Pack Location L knee Patient Position Hooklying PT-OP-T Assessment and Plan Start: 07/10/23 15:50 Freq: Status: Active Protocol: Document 09/08/23 09:50 [facility] (Rec: 09/08/23 10:36 SP [id number]) Physical Therapy Assessment Goals posture Diesel Plant Operator Goal (LTG) Pt will score at least 4/5 on VCT to show improved postural stability to allow inc standing/sitting time 4/15-2/5 LTG Duration 5/22 strength Short Term Goal (STG) Pt will be indep w/HEP STG Duration 08/28/23 [facility] Goal (LTG) Pt will score at least 3/5 on LPM and at least 4+/5 on B LE MMT to show improved strength to allow pt to do more active activities w/o inc pain 08/31-improved LTG Duration 10/09/23 activity Short Term Goal (STG) Pt will be able to start gentle yoga activities w/o inc back pain. 08/31-has not started by tried evelyne chi STG Duration 08/31 [facility] Goal (LTG) Pt will be able to hike more hills and inc distance to up to 4 miles occasionally w/o significant inc in back pain 08/31-has started small hills and has done some days of 4 mile hikes but slowly progressing w/this LTG Duration 10/08/23 ISA Impairment 21/50 Short Term Goal (STG) Pt will improve ISA score to no greater than 15/50 to show improved functional mobility. 08/31- improved STG Duration 08/29/23 [facility] Goal (LTG) Pt will improve ISA score to no greater than 8/50 to show improved functional mobility. LTG Duration 10/08/23 Assessment Summary Assessment Pt found less pain post manual R low back and L knee, decreased muscle bump over lateral distal quad but reported was sensitive but helpful gained more ROM 121 deg. GOod tolerance to functional squat picking up items with good form wider LOWELL vs STS off elevated table. She demonstrates good form squat, back straight for elevated bed gardening. helps get things lower to ground. Physical Therapy Plan Frequency and Duration Frequency of Treatment 1-2x/wk Duration of treatment (weeks) 12 Plan of Care Start Date 07/15/23 Plan of Care End Date 10/08/23 Therapeutic Interventions Therapeutic Interventions Balance Training,Coordination Training,Gait Training,Home Exercise Program,Joint Mobilizations,Manual Therapy, Neuromuscular Re-education, Orthotic/Prosthetic Management ,Patient/Caregiver Education, Self-Care/Home Management,Soft Tissue Mobilization,Taping, Therapeutic Activities, Therapeutic Exercises Modalities Cold Pack/Ice Massage,Electric Stimulation,Hot Packs, Infrared Therapy,Ultrasound Next Visit Focus/Plan Next Note Type Treatment Note Next Visit Plan Check squat mechanics for L knee ROM/pain, response to manual to LS a L knee last tx with tool/cupping. POC: cont to work on hip abd engagement. manual to improve lumbar, hip and innominate relationship PNF for rolling
--- NOTE | 2023-09-15 13:50 | PT.OTN ---
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) Pain in right knee (09/15/23) Pain in left knee (09/15/23) Other spondylosis with radiculopathy, lumbosacral region (09/15/23) Spondylosis without myelopathy or radiculopathy, lumbar region (09/15/23) Spinal stenosis, lumbar region without neurogenic claudication (09/15/23) Muscle weakness (generalized) (09/15/23) Difficulty in walking, not elsewhere classified (09/15/23) Abnormal posture (09/15/23) Strain of muscle, fascia and tendon of lower back, initial encounter (09/15/23) Arthrodesis status (09/15/23) Physical Therapy Treatment Note PT-OP-A Visit Information Start: 07/10/23 15:50 Freq: Status: Active Protocol: Document 09/15/23 09:49 [facility] (Rec: 09/15/23 13:50 [facility] [id number]) Out-Patient Physical Therapy Visit Information Visit Information Visit Type Treatment Note Visit Note 07/26 Visit Start Time 09:49 Visit Stop Time 10:45 Visit Number 12 Number of WET ROOM SUPERVISOR Visits 0 PT-OP-B Current Condition Start: 07/10/23 15:50 Freq: Status: Active Protocol: Document 07/15/23 13:49 [facility] (Rec: 07/15/23 14:33 [facility] [id number]) Current Condition History of Current Condition Current Complaints LBP, B knee pain, neuropath History of Current Condition Pt reports in 2016, she had back surgery (L3-5 fusion) and after got guilliane [place] and took a long time to dx it. She had drop foot but it is better. Has neuropathy in BLEs . Pt has been trouble getting rid of back pain. She saw Dr. Justice a lot. She saw a PA ortho recently and thought possibly one screw is tipped up. Midback pain is newer and not as bad but still painful. PA gave her meloxicam, mm relaxor and a pack of prednisone. She didn't take them d/t them being about to go away. MM relaxor and meloxicam made her nauseaus. Tylenol and ibuprofen do not help back. Heat helps mroe than ice. Has been given gabapentin but it hasn't worked before. Pain currently intefering at night. Uses a pillow btwn knees. Pt has hx of B TKA and R one the patella fx possibly d/t quad tendn or could have been a pin too long. L TKA was done in November but knee was not resurfaced, so still has pain. R TKA was done about 3.5 years ago. Walks 1-3 miles w/dog in AM and does have pain after. She was reluctant to go back to PT because she had an incident w /inc pain after to do 50 bridges. She used to be extremely active. She knows she let her core go. Neuropathy affects her mostly in bottom of feet and into lower legs. It can be the worst at night. Pt back pain was off/on for several years prior to getting the point of needing surgery. She has been seeing a chiro who does trudy technique in [place] and that has helped her neck a lot. It hasn't helped her back. Treatment Goals Patient/Caregiver Goals Be in less pain and be more mobile, Be able to do yoga, be able to hike more hills and hike longer (get up to 4 miles ), garden/yard work PT-OP-C Subjective Start: 07/10/23 15:50 Freq: Status: Active Protocol: Document 09/15/23 09:49 [facility] (Rec: 09/15/23 13:50 [facility] [id number]) OP-PT Subjective Patient Comments Patient Comments Pt reports back is better. It goes up and down. L knee does not seem like it is gettting better. Feel stronger PT-OP-D Balance Start: 07/10/23 15:50 Freq: Status: Active Protocol: Document 07/15/23 13:49 [facility] (Rec: 07/15/23 14:33 [facility] [id number]) Balance Tests Single Limb Standing Single Limb- Right 12 sec Single Limb- Left 12 sec PT-OP-F Manual Assessment Start: 07/10/23 15:50 Freq: Status: Active Protocol: Document 07/15/23 13:49 [facility] (Rec: 07/15/23 14:33 [facility] [id number]) Manual Assessments Joint Mobility Assessment Joint Mobility Assessment R iliac crest higher, equal greater trochanters Other Manual Assessments Other Manual Assessments Pt can only squat about 20 deg and painful at that PT-OP-G Mobility & Gait Start: 07/10/23 15:50 Freq: Status: Active Protocol: Document 07/15/23 13:49 [facility] (Rec: 07/15/23 14:33 [facility] [id number]) OP Gait Assessment Comments Gait Comments dec push off B , leans R slightly, dec RLE stance time, add B PT-OP-J Posture/Palpation/Skin Start: 07/10/23 15:50 Freq: Status: Active Protocol: Document 09/01/23 09:24 [facility] (Rec: 09/01/23 12:27 [facility] [id number]) Posture Evaluation [facility] Postural Classification System Vertebral Compression Test 2 Lumbar Protective Mechanism Left AP 0 Lumbar Protective Mechanism Right AP 0 Lumbar Protective Mechanism Left PA 0 PT-OP-K Range of Motion Start: 07/10/23 15:50 Freq: Status: Active Protocol: Document 07/15/23 13:49 [facility] (Rec: 07/15/23 14:33 [facility] [id number]) Lumbar Spine Range of Motion Lumbar Spine Active Percentage Flexion 20 Extension 30 Rotation Left 30 Rotation Right 30 Lateral Flexion Left 50 Lateral Flexion Right 50 PT-OP-L Special Tests Start: 07/10/23 15:50 Freq: Status: Active Protocol: Document 07/15/23 13:49 [facility] (Rec: 07/15/23 14:33 [facility] [id number]) Special Tests Lumbar Spine Special Tests Slump Test Results neg for back pain, inc tension on L PT-OP-M Strength Start: 07/10/23 15:50 Freq: Status: Active Protocol: Document 09/01/23 09:24 [facility] (Rec: 09/01/23 12:27 [facility] [id number]) Hip Strength Hip Manual Muscle Testing Right Flexion (L2) 4- Good- External Rotation 4- Good- Internal Rotation 4- Good- Left Flexion (L2) 3+ Fair+ External Rotation 4 Good Internal Rotation 5 Normal Knee Strength Knee Manual Muscle Testing Right Flexion (S2) 5 Normal Extension (L3) 5 Normal Left Flexion (S2) 5 Normal Extension (L3) 4+ Good+ Ankle/Foot Strength Ankle and Foot Manual Muscle Testing Right Dorsiflexion (L4) 4- Good- Left Dorsiflexion (L4) 5 Normal PT-OP-Q Treatments Start: 07/10/23 15:50 Freq: Status: Active Protocol: Document 09/15/23 09:49 [facility] (Rec: 09/15/23 13:50 [facility] [id number]) Therapeutic Exercises Supine Exercises bridge Supine Exercise Name 1. DL 2. SL Side bilateral Reps/Minutes 10sec x8 2. 6 TA heel slide Supine Exercise Name hovering w/TA Side bilateral Reps/Minutes 10 LTR Supine Exercise Name cues for segmental stability Side bilateral Reps/Minutes 10 ea Comments cross same side leg over for inc resistance Manual Therapy Treatment Soft Tissue Mobilization lumbar Body Location R along SI and multifidi R sacrum, QL Mobilization Type Myofascial Release,Rolling, Sustained Pressure,Other Intensity/Depth Moderate Body Position Sitting scar Body Location L knee quads and scar Mobilization Type Instrument Assisted,Myofascial Release Intensity/Depth Superficial Body Position Hooklying Comments rich test Joint Mobilizations lumbar Comments L1 and 2 upglide R FM L knee Comments L PA tib fem and tibfib FM PT-OP-R Modalities Start: 07/10/23 15:50 Freq: Status: Active Protocol: Document 09/15/23 09:49 [facility] (Rec: 09/15/23 13:50 [facility] [id number]) Hot Pack/Cold Pack Treatment Cold Pack Location L knee Patient Position Hooklying MHP LS Location LB Patient Position Hooklying Patient Tolerance Good PT-OP-T Assessment and Plan Start: 07/10/23 15:50 Freq: Status: Active Protocol: Document 09/15/23 09:49 [facility] (Rec: 09/15/23 13:50 [facility] [id number]) Physical Therapy Assessment Goals posture [employer] Goal (LTG) Pt will score at least 4/5 on VCT to show improved postural stability to allow inc standing/sitting time 08/31-2/5 LTG Duration 10/07 strength Short Term Goal (STG) Pt will be indep w/HEP STG Duration 08/28/23 Nursing Home Goal (LTG) Pt will score at least 3/5 on LPM and at least 4+/5 on B LE MMT to show improved strength to allow pt to do more active activities w/o inc pain 08/31-improved LTG Duration 10/09/23 activity Short Term Goal (STG) Pt will be able to start gentle yoga activities w/o inc back pain. 08/31-has not started by tried evelyne chi STG Duration 08/31 [employer] Goal (LTG) Pt will be able to hike more hills and inc distance to up to 4 miles occasionally w/o significant inc in back pain 08/31-has started small hills and has done some days of 4 mile hikes but slowly progressing w/this LTG Duration 10/08/23 ISA Impairment 21/50 Short Term Goal (STG) Pt will improve ISA score to no greater than 15/50 to show improved functional mobility. 08/31- improved STG Duration 08/29/23 [employer] Goal (LTG) Pt will improve ISA score to no greater than 8/50 to show improved functional mobility. LTG Duration 10/08/23 Assessment Summary Assessment Pt had improved fwd flex, L rot and L SB w/less pain after manual treatment. Improved knee flex from 111 to 119 after manual. Physical Therapy Plan Frequency and Duration Frequency of Treatment 1-2x/wk Duration of treatment (weeks) 12 Plan of Care Start Date 07/15/23 Plan of Care End Date 10/08/23 Next Visit Focus/Plan Next Note Type Treatment Note Next Visit Plan Check squat mechanics for L knee ROM/pain POC: cont to work on hip abd engagement. manual to improve lumbar, hip and innominate relationship PNF for rolling
--- NOTE | 2023-09-29 09:29 | PT.OPDS ---
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) Pain in right knee (09/15/23) Pain in left knee (09/15/23) Other spondylosis with radiculopathy, lumbosacral region (09/15/23) Spondylosis without myelopathy or radiculopathy, lumbar region (09/15/23) Spinal stenosis, lumbar region without neurogenic claudication (09/15/23) Muscle weakness (generalized) (09/15/23) Difficulty in walking, not elsewhere classified (09/15/23) Abnormal posture (09/15/23) Strain of muscle, fascia and tendon of lower back, initial encounter (09/15/23) Arthrodesis status (09/15/23) Visit Care Team Role Provider Type Barney Martínez MD Referring Provider Non-Staff Specialty: Orthopedic Surgery Address: [address] [place], [place] [address], [place], [address] Fax: Email: Nila Kyle DO Family Provider Physician Primary Care Provider Specialty: Medical Address: [address] [place] [address], [address], [address] Email: [email or web address] Zabrina Hawthorne PA-C Attending Provider [employer] Principal Specialty: Orthopedics Orthopedic Surgery Address: [address] [place] [address], [place], [address] Email: [email or web address] Visit Number Visit Number 12 Discharge Summary PT-OP-B Current Condition Start: 07/10/23 15:50 Freq: Status: Active Protocol: Document 07/15/23 13:49 [facility] (Rec: 07/15/23 14:33 [facility] [id number]) Current Condition History of Current Condition Current Complaints LBP, B knee pain, neuropath History of Current Condition Pt reports in 2016, she had back surgery (L3-5 fusion) and after got guilliane [place] and took a long time to dx it. She had drop foot but it is better. Has neuropathy in BLEs . Pt has been trouble getting rid of back pain. She saw Dr. Justice a lot. She saw a PA ortho recently and thought possibly one screw is tipped up. Midback pain is newer and not as bad but still painful. PA gave her meloxicam, mm relaxor and a pack of prednisone. She didn't take them d/t them being about to go away. MM relaxor and meloxicam made her nauseaus. Tylenol and ibuprofen do not help back. Heat helps mroe than ice. Has been given gabapentin but it hasn't worked before. Pain currently intefering at night. Uses a pillow btwn knees. Pt has hx of B TKA and R one the patella fx possibly d/t quad tendn or could have been a pin too long. L TKA was done in November but knee was not resurfaced, so still has pain. R TKA was done about 3.5 years ago. Walks 1-3 miles w/dog in AM and does have pain after. She was reluctant to go back to PT because she had an incident w /inc pain after to do 50 bridges. She used to be extremely active. She knows she let her core go. Neuropathy affects her mostly in bottom of feet and into lower legs. It can be the worst at night. Pt back pain was off/on for several years prior to getting the point of needing surgery. She has been seeing a chiro who does [facility] technique [place] [facility] and that has helped her neck a lot. It hasn't helped her back. Treatment Goals Patient/Caregiver Goals Be in less pain and be more mobile, Be able to do yoga, be able to hike more hills and hike longer (get up to 4 miles ), garden/yard work PT-OP-C Subjective Start: 07/10/23 15:50 Freq: Status: Active Protocol: Document 09/15/23 09:49 [facility] (Rec: 09/15/23 13:50 [facility] [id number]) OP-PT Subjective Patient Comments Patient Comments Pt reports back is better. It goes up and down. L knee does not seem like it is gettting better. Feel stronger PT-OP-D Balance Start: 07/10/23 15:50 Freq: Status: Active Protocol: Document 07/15/23 13:49 [facility] (Rec: 07/15/23 14:33 [facility] [id number]) Balance Tests Single Limb Standing Single Limb- Right 12 sec Single Limb- Left 12 sec PT-OP-F Manual Assessment Start: 07/10/23 15:50 Freq: Status: Active Protocol: Document 07/15/23 13:49 [facility] (Rec: 07/15/23 14:33 [id number] Manual Assessments Joint Mobility Assessment Joint Mobility Assessment R iliac crest higher, equal greater trochanters Other Manual Assessments Other Manual Assessments Pt can only squat about 20 deg and painful at that PT-OP-G Mobility & Gait Start: 07/10/23 15:50 Freq: Status: Active Protocol: Document 07/15/23 13:49 [facility] (Rec: 07/15/23 14:33 [id number] OP Gait Assessment Comments Gait Comments dec push off B , leans R slightly, dec RLE stance time, add B PT-OP-J Posture/Palpation/Skin Start: 07/10/23 15:50 Freq: Status: Active Protocol: Document 09/01/23 09:24 [facility] (Rec: 09/01/23 12:27 [facility] [id number]) Posture Evaluation [facility] Postural Classification System Vertebral Compression Test 2 Lumbar Protective Mechanism Left AP 0 Lumbar Protective Mechanism Right AP 0 Lumbar Protective Mechanism Left PA 0 PT-OP-K Range of Motion Start: 07/10/23 15:50 Freq: Status: Active Protocol: Document 07/15/23 13:49 [facility] (Rec: 07/15/23 14:33 [facility] [id number]) Lumbar Spine Range of Motion Lumbar Spine Active Percentage Flexion 20 Extension 30 Rotation Left 30 Rotation Right 30 Lateral Flexion Left 50 Lateral Flexion Right 50 PT-OP-L Special Tests Start: 07/10/23 15:50 Freq: Status: Active Protocol: Document 07/15/23 13:49 [facility] (Rec: 07/15/23 14:33 [facility] [id number]) Special Tests Lumbar Spine Special Tests Slump Test Results neg for back pain, inc tension on L PT-OP-M Strength Start: 07/10/23 15:50 Freq: Status: Active Protocol: Document 09/01/23 09:24 [facility] (Rec: 09/01/23 12:27 [facility] [id number]) Hip Strength Hip Manual Muscle Testing Right Flexion (L2) 4- Good- External Rotation 4- Good- Internal Rotation 4- Good- Left Flexion (L2) 3+ Fair+ External Rotation 4 Good Internal Rotation 5 Normal Knee Strength Knee Manual Muscle Testing Right Flexion (S2) 5 Normal Extension (L3) 5 Normal Left Flexion (S2) 5 Normal Extension (L3) 4+ Good+ Ankle/Foot Strength Ankle and Foot Manual Muscle Testing Right Dorsiflexion (L4) 4- Good- Left Dorsiflexion (L4) 5 Normal PT-OP-T Assessment and Plan Start: 07/10/23 15:50 Freq: Status: Active Protocol: Document 09/29/23 09:25 [facility] (Rec: 09/29/23 09:29 [facility] [id number]) Physical Therapy Assessment Goals posture [facility] Goal (LTG) Pt will score at least 4/5 on VCT to show improved postural stability to allow inc standing/sitting time 08/31-2 LTG Duration 10/07 strength Short Term Goal (STG) Pt will be indep w/HEP STG Duration 08/28/23 [facility] Goal (LTG) Pt will score at least 3/5 on LPM and at least 4+/5 on B LE MMT to show improved strength to allow pt to do more active activities w/o inc pain 08/31-improved LTG Duration 10/09/23 activity Short Term Goal (STG) Pt will be able to start gentle yoga activities w/o inc back pain. 08/31-has not started by tried evelyne chi STG Duration 08/31 [facility] Goal (LTG) Pt will be able to hike more hills and inc distance to up to 4 miles occasionally w/o significant inc in back pain 08/31-has started small hills and has done some days of 4 mile hikes but slowly progressing w/this LTG Duration 10/08/23 ISA Impairment 21/50 Short Term Goal (STG) Pt will improve ISA score to no greater than 15/50 to show improved functional mobility. 08/31- improved STG Duration 08/29/23 [facility] Goal (LTG) Pt will improve ISA score to no greater than 8/50 to show improved functional mobility. LTG Duration 10/08/23 Assessment Summary Assessment Pt called re: cancellation and DC request and notes she feels like no longer making progress w/PT. Pt limited by TKA stilla nd does have a follow up w/new ortho to assess this. Pt did make some progress w/PT re: back pain but d/t feeling of plateau d/c at this time per pt request. Physical Therapy Plan Discharge Physical Therapy Discharge Reasons Plateau in Progress
== END 2023-10-01 13:28 | disposition home or self-care (01) ==
LOC: PHYS 09:45
PROVIDERS: Family Provider Family Medicine; PCP Family Medicine; Referring Provider Student in an Organized Health Care Education/Training Program; Visit Provider Physician Assistant
DX: Z98.1 Arthrodesis status (principal); M47.27 Other spondylosis with radiculopathy, lumbosacral region; G61.0 Guillain-Barre syndrome; M47.816 Spondylosis without myelopathy or radiculopathy, lumbar region; M48.061 Spinal stenosis, lumbar region without neurogenic claudication; S39.012A Strain of muscle, fascia and tendon of lower back, initial encounter; M25.562 Pain in left knee; M25.561 Pain in right knee; R26.2 Difficulty in walking, not elsewhere classified; R29.3 Abnormal posture; M62.81 Muscle weakness (generalized)
CPT/HCPCS: 97010; 97110; 97112; 97140; 97162; 97530; 97535

== ENCOUNTER → 2023-11-05 08:22 | Outpatient (CLI) | payer OTHER, SELFPAY ==
[2023-11-05 09:45] LABS: Add Manual Diff / Slide Review NO; Basophils Absolute Auto 0 /uL (0-100); Basophils Percent Auto 0.6 % (0-2); Eosinophils Absolute Auto 100 /uL (0-450); Eosinophils Percent Auto 3.4 % (2-4); Hematocrit 40.2 % (36-46); Lymphocytes Absolute Auto 1300 /uL (1100-4500); Lymphocytes Percent Auto 33.8 % (25-40); Mean Corpuscular HGB Conc 32.4 % (30-36); Mean Corpuscular Volume 89.7 fL (80-100); Monocytes Absolute Auto 400 /uL (0-900); Monocytes Percent Auto 10.3 % (3-14); Neutrophils Absolute Auto 2000 /uL (1500-7000); Neutrophils Percent Auto 51.9 % (50-75); Platelet Count 249 X10^3/uL (150-400); Red Blood Cell Count 4.48 X10^6/uL (4.0-5.2); Red Cell Distribution Width 13.7 % (11.6-14.8)
[2023-11-05 09:56] LABS: Hemoglobin A1C% w Est Avg Glu 5.5 % (4.0-6.0)
[2023-11-05 10:33] LABS: Alanine Aminotransferase 34 IU/L (<35); Albumin 4.4 g/dL (3.5-5.0); Albumin Globulin Ratio 1.8 (1.0-2.8); Alkaline Phosphatase 92 U/L (38-126); Aspartate Aminotransferase 32 IU/L (14-36); BUN Creatinine Ratio 23.4 (6-22); Bilirubin Total 0.4 mg/dL (0.2-1.3); Blood Urea Nitrogen 22 mg/dL (7-17); Carbon Dioxide 25 mmol/L (22-32); Chloride 110 mmol/L (98-107); Cholesterol 181 mg/dL (140-199); Estimated Glomerular Filt Rate > 60 mL/min (>60); Globulin 2.5 g/dL (1.7-4.1); Glucose 95 mg/dL (80-110); HDL Cholesterol 87 mg/dL (40-60); HEMOLYSIS < 15 (0-50); LDL Cholesterol Calculated 75 mg/dL (<100); Potassium 4.5 mmol/L (3.4-5.1); Sodium 141 mmol/L (137-145); Total Protein 6.9 g/dL (6.3-8.2); Triglycerides 96 mg/dL (35-150)
== END ==
PROVIDERS: Family Provider Family Medicine; PCP Family Medicine; Referring Provider Family Medicine; Visit Provider Family Medicine
DX: E78.5 Hyperlipidemia, unspecified (principal); R73.9 Hyperglycemia, unspecified; D64.9 Anemia, unspecified
CPT/HCPCS: 36415; 80053; 80061; 83036; 85025; 86140

== ENCOUNTER → 2023-12-17 09:42 | Outpatient (CLI) | payer OTHER, SELFPAY ==
[2023-12-17 10:37] LABS: Free T4, Direct Thyroxine 1.14 ng/dL (0.78-2.19)
== END ==
PROVIDERS: Family Provider Family Medicine; PCP Family Medicine; Referring Provider Internal Medicine Endocrinology, Diabetes & Metabolism; Visit Provider Internal Medicine Endocrinology, Diabetes & Metabolism
DX: E89.0 Postprocedural hypothyroidism (principal)
CPT/HCPCS: 36415; 84439; 84443

== ENCOUNTER → 2024-01-27 11:28 | Outpatient (CLI) | payer OTHER, SELFPAY ==
[2024-01-27 14:16] LABS: Free T4, Direct Thyroxine 1.26 ng/dL (0.78-2.19)
[2024-01-27 14:30] LABS: Thyroid Stimulating Hormone 0.042 uIU/mL (0.47-4.68)
== END ==
PROVIDERS: Family Provider Family Medicine; PCP Family Medicine; Referring Provider Internal Medicine Endocrinology, Diabetes & Metabolism; Visit Provider Internal Medicine Endocrinology, Diabetes & Metabolism
DX: E89.0 Postprocedural hypothyroidism (principal)
CPT/HCPCS: 36415; 84439; 84443

== ENCOUNTER → 2024-03-24 10:28 | Outpatient (CLI) | payer OTHER, SELFPAY ==
[2024-03-24 12:02] LABS: Free T4, Direct Thyroxine 1.16 ng/dL (0.78-2.19)
[2024-03-24 12:16] LABS: Thyroid Stimulating Hormone 0.439 uIU/mL (0.47-4.68)
== END ==
PROVIDERS: Family Provider Family Medicine; PCP Family Medicine; Referring Provider Internal Medicine Endocrinology, Diabetes & Metabolism; Visit Provider Internal Medicine Endocrinology, Diabetes & Metabolism
DX: E89.0 Postprocedural hypothyroidism (principal)
CPT/HCPCS: 36415; 84439; 84443

== ENCOUNTER → 2024-05-04 15:00 | Outpatient (CLI) | payer OTHER, SELFPAY ==
[2024-05-04 16:15] LABS: Free T3, Triiodothyronine Free 3.34 pg/mL (2.77-5.27); Free T4, Direct Thyroxine 1.58 ng/dL (0.78-2.19)
[2024-05-04 16:29] LABS: Thyroid Stimulating Hormone 0.106 uIU/mL (0.47-4.68)
== END ==
PROVIDERS: Family Provider Family Medicine; PCP Family Medicine; Referring Provider Internal Medicine Endocrinology, Diabetes & Metabolism; Visit Provider Internal Medicine Endocrinology, Diabetes & Metabolism
DX: E89.0 Postprocedural hypothyroidism (principal)
CPT/HCPCS: 36415; 84439; 84443; 84481

== ENCOUNTER → 2024-10-05 16:53 | Outpatient (CLI) | payer OTHER, SELFPAY ==
--- NOTE | 2024-10-05 16:59 | DI.MG.S_ITS ---
MM screening mammo BI: 10/05/2024. BI-RADS: 0 CLINICAL: 74-year old female for bilateral screening mammogram. Tyrer-Cuzick lifetime risk of 5.0%. No personal or first-degree family history of breast cancer. PRIOR EXAMS 08/25/2023, 08/08/2022, 07/02/2021, 04/18/2020, 03/10/2019, 10/24/2017, 09/10/2016, 07/31/2015. MAMMOGRAPHY TECHNIQUE: 2D and 3D (tomosynthesis) digital mammographic views obtained, with additional images as needed for full coverage. Current study was also evaluated with a Computer Aided Detection (CAD) system. DENSITY C. The breasts are heterogeneously dense, which may obscure small masses. MAMMOGRAPHY FINDINGS Right: Upper Outer Quadrant, Middle depth: Focal asymmetry needing additional imaging evaluation. Left: No suspicious mass, asymmetry, microcalcification, or other abnormality seen. IMPRESSION: Right (Asymmetry): Upper Outer Quadrant, Middle depth * Incomplete - focal asymmetry needing additional imaging evaluation. Left * No evidence of malignancy. RECOMMENDATIONS Right: Upper Outer Quadrant, Middle depth * Further evaluation with diagnostic mammography and diagnostic ultrasound. Ultrasound to be performed only if needed. OVERALL ASSESSMENT CATEGORY BI-RADS-0: Incomplete - Need Additional Imaging Evaluation. ELECTRONICALLY SIGNED: Angelique Stephens M.D. on 10/06/2024 at 07:19:47 AM PT Interpreting Station ID: [id number]
== END ==
PROVIDERS: Family Provider Family Medicine; PCP Family Medicine; Referring Provider Family Medicine; Visit Provider Family Medicine
DX: Z12.31 Encounter for screening mammogram for malignant neoplasm of breast (principal); N64.89 Other specified disorders of breast
CPT/HCPCS: 77063; 77067

== ENCOUNTER → 2024-10-29 09:26 | Outpatient (CLI) | payer OTHER, SELFPAY ==
--- NOTE | 2024-10-29 09:27 | DI.MG.S_ITS ---
MM diagnostic mammo unilat RT, US breast RT limited: 10/29/2024 BI-RADS: 2 CLINICAL: 74-year old female for right diagnostic mammogram and right diagnostic breast ultrasound that is a recall from screening on 10/05/2024. Tyrer-Cuzick lifetime risk of 5.0%. No personal or first-degree family history of breast cancer. PRIOR EXAMS Mammogram(s): 10/05/2024. Eight Other Exams on 08/25/2023, 08/08/2022, 07/02/2021, 04/18/2020, 03/10/2019, 10/24/2017, 09/10/2016, 07/31/2015. MAMMOGRAPHY TECHNIQUE: 2D and 3D (tomosynthesis) digital mammographic views obtained, with additional images as needed for full coverage. Current study was also evaluated with a Computer Aided Detection (CAD) system. ULTRASOUND TECHNIQUE TARGETED Right Breast Ultrasound: Real-time ultrasound exam was performed focused to area of clinical and/or imaging concern. Real-time vines scale and color doppler imaging of the area of clinical interest was performed with image documentation. DENSITY Right: C. The breasts are heterogeneously dense, which may obscure small masses. MAMMOGRAPHY FINDINGS Right (finding-1): Upper Outer Quadrant, Middle depth, measuring 0.5cm: There is a circumscribed, oval mass present. ULTRASOUND FINDINGS Right (finding-1): Outer Central, 8 cm from nipple, measuring 0.4 x 0.5 cm. Previous report: Upper Outer Quadrant: Correlating with findings on mammogram there is a cyst with artifacts. IMPRESSION: Right * No evidence of malignancy with benign findings. RECOMMENDATIONS Bilateral * Annual screening mammography. OVERALL ASSESSMENT CATEGORY BI-RADS-2: Benign. [employer] recommends annual screening mammography beginning at age 40 for women with average risk of breast cancer. ELECTRONICALLY SIGNED: Randy Matias M.D. on 10/29/2024 at 11:00:10 AM PT Interpreting Station ID: [id number]
== END ==
LOC: MAMMO 09:27
PROVIDERS: Family Provider Family Medicine; PCP Family Medicine; Referring Provider Family Medicine; Visit Provider Family Medicine
DX: R92.8 Other abnormal and inconclusive findings on diagnostic imaging of breast (principal); N60.01 Solitary cyst of right breast; R92.331 Mammographic heterogeneous density, right breast
CPT/HCPCS: 76642; 77065; G0279

== ENCOUNTER → 2024-11-10 14:42 | Outpatient (CLI) | payer OTHER, SELFPAY ==
[2024-11-10 16:38] LABS: Free T4, Direct Thyroxine 1.18 ng/dL (0.78-2.19)
== END ==
PROVIDERS: PCP Family Medicine; Referring Provider Internal Medicine Endocrinology, Diabetes & Metabolism; Visit Provider Internal Medicine Endocrinology, Diabetes & Metabolism
DX: E89.0 Postprocedural hypothyroidism (principal)
CPT/HCPCS: 36415; 84439; 84443

== ENCOUNTER → 2024-11-15 08:23 | Outpatient (CLI) | payer OTHER, SELFPAY ==
[2024-11-15 09:21] LABS: Hematocrit 41.2 % (36-46); Hemoglobin 13.7 g/dL (12.0-16.0); Mean Corpuscular HGB Conc 33.2 % (30-36); Mean Corpuscular Hemoglobin 29.5 PG (26-34); Mean Corpuscular Volume 88.6 fL (80-100); Platelet Count 244 X10^3/uL (150-400); Red Blood Cell Count 4.64 X10^6/uL (4.0-5.2); Red Cell Distribution Width 13.5 % (11.6-14.8); White Blood Cell Count 4.3 X10^3/uL (4.5-11.0)
[2024-11-15 09:44] LABS: Alanine Aminotransferase 39 IU/L (<35); Albumin 4.4 g/dL (3.5-5.0); Albumin Globulin Ratio 1.8 (1.0-2.8); Alkaline Phosphatase 101 U/L (38-126); Aspartate Aminotransferase 37 IU/L (14-36); BUN Creatinine Ratio 20.7 (6-22); Bilirubin Total 0.4 mg/dL (0.2-1.3); Blood Urea Nitrogen 19 mg/dL (7-17); Calcium 9.4 mg/dL (8.4-10.2); Carbon Dioxide 22 mmol/L (22-32); Chloride 109 mmol/L (98-107); Cholesterol 182 mg/dL (140-199); Estimated Glomerular Filt Rate > 60 mL/min (>60); Globulin 2.4 g/dL (1.7-4.1); Glucose 100 mg/dL (70-99); HDL Cholesterol 80 mg/dL (40-60); HEMOLYSIS < 15 (0-50); LDL Cholesterol Calculated 78 mg/dL (<100); Potassium 4.4 mmol/L (3.4-5.1); Sodium 142 mmol/L (137-145); Total Protein 6.8 g/dL (6.3-8.2); Triglycerides 122 mg/dL (35-150)
== END ==
PROVIDERS: PCP Family Medicine; Referring Provider Family Medicine; Visit Provider Family Medicine
DX: Z00.01 Encounter for general adult medical examination with abnormal findings (principal); E78.5 Hyperlipidemia, unspecified; R53.83 Other fatigue
CPT/HCPCS: 36415; 80053; 80061; 85027; 86140

== ENCOUNTER → 2024-12-24 11:25 | Outpatient (CLI) | payer OTHER, SELFPAY ==
--- NOTE | 2024-12-24 11:26 | DI.RAD.S_ITS ---
PROCEDURE: XR KNEE LT 3V INDICATIONS: medial pain. fell 4 days ago TECHNIQUE: Three views of the knee were acquired. COMPARISON: [facility], CR, XR KNEE RT 3V, 03/30/2021, 8:00. FINDINGS: Bones: No fractures or dislocations. No suspicious bony lesions. Knee arthroplasty components are in place. Hardware is intact and in appropriate alignment. Soft tissues: Small joint effusion. No suspicious soft tissue calcifications. IMPRESSION: Small joint effusion uncertain etiology, reactive versus evidence of intrinsic soft tissue injury. Dictated by: Anitha Summers M.D. on 12/24/2024 at 13:28 Approved by: Anitha Summers M.D. on 12/24/2024 at 13:29
== END ==
PROVIDERS: PCP Family Medicine; Referring Provider Family Medicine; Visit Provider Family Medicine
DX: M25.462 Effusion, left knee (principal); M25.562 Pain in left knee; Z96.652 Presence of left artificial knee joint
CPT/HCPCS: 73562

== ENCOUNTER → 2025-02-18 09:07 | Outpatient (CLI) | payer OTHER, SELFPAY ==
[2025-02-18 12:03] LABS: Alanine Aminotransferase 31 IU/L (<35); Albumin 4.4 g/dL (3.5-5.0); Albumin Globulin Ratio 1.8 (1.0-2.8); Alkaline Phosphatase 96 U/L (38-126); Blood Urea Nitrogen 22 mg/dL (7-17); Calcium 9.5 mg/dL (8.4-10.2); Carbon Dioxide 25 mmol/L (22-32); Chloride 107 mmol/L (98-107); Estimated Glomerular Filt Rate > 60 mL/min (>60); Globulin 2.5 g/dL (1.7-4.1); Glucose 97 mg/dL (70-99); HEMOLYSIS < 15 (0-50); Potassium 4.4 mmol/L (3.4-5.1); Sodium 140 mmol/L (137-145); Total Protein 6.9 g/dL (6.3-8.2)
[2025-02-18 12:11] LABS: Hemoglobin A1C% w Est Avg Glu 5.5 % (4.0-6.0)
== END ==
LOC: LAB 09:07
PROVIDERS: PCP Family Medicine; Referring Provider Family Medicine; Visit Provider Family Medicine
DX: R73.9 Hyperglycemia, unspecified (principal); M80.00XG Age-related osteoporosis with current pathological fracture, unspecified site, subsequent encounter for fracture with delayed healing; M17.12 Unilateral primary osteoarthritis, left knee
CPT/HCPCS: 36415; 80053; 83036

== ENCOUNTER → 2025-05-04 15:01 | Outpatient (CLI) | payer OTHER, SELFPAY ==
[2025-05-04 16:20] LABS: Free T4, Direct Thyroxine 1.25 ng/dL (0.78-2.19)
[2025-05-04 16:33] LABS: Thyroid Stimulating Hormone 0.280 uIU/mL (0.47-4.68)
== END ==
PROVIDERS: PCP Family Medicine; Referring Provider Internal Medicine Endocrinology, Diabetes & Metabolism; Visit Provider Internal Medicine Endocrinology, Diabetes & Metabolism
DX: E89.0 Postprocedural hypothyroidism (principal)
CPT/HCPCS: 36415; 84439; 84443